=== PATIENT | female | born 1960 | race Hispanic/Latino ===

== ENCOUNTER 2017-07-17 10:36 | Inpatient (IN) | payer OTHER ==
[2017-07-17] MEDS ORDERED: VANCOMYCIN/NS 1 GM/250 ML 1 GM/250 ML BAG IV ONE (10:51)
[2017-07-17] MEDS ORDERED: LEVAQUIN 750MG/150ML 750 MG/150 ML BAG IV ONE (10:51)
[2017-07-17] MEDS ORDERED: ZOSYN/NS 2.25 GM/50ML 2.25 GM/50 ML BAG IV ONE (10:51)
[2017-07-17] MEDS ORDERED: NACL 0.9% 1000 ML 1,000 ML IV ONE (10:51)
[2017-07-17] MEDS ORDERED: ATROVENT IH ONE (10:54)
[2017-07-17] MEDS ORDERED: PROVENTIL IH ONE (10:54)
--- NOTE | 2017-07-17 11:41 | XRay Report ---
AP CHEST: HISTORY: Dyspnea AP view of the chest demonstrates a normal mediastinal and cardiac contour with clear lungs and normal bony and soft tissue structures. IMPRESSION: Unremarkable AP chest. No significant change since 05/31/16.
[2017-07-17 11:55] LABS: Basophils % (Auto) 0.2 % (0.0-1.8); Eosinophils % (Auto) 0.1 % (0.0-4.3); Hematocrit 40.5 % (30.3-42.9); Hemoglobin 13.6 gm/dl (10.1-14.3); Lymphocytes # (Auto) 0.9 K/mm3 (1.2-5.4); Mean Corpuscular HGB Conc 34 % (30-34); Mean Corpuscular Hemoglobin 34 pg (28-32); Mean Corpuscular Volume 100 fl (79-97); Monocytes # (Auto) 0.6 K/mm3 (0.0-0.8); Monocytes % (Auto) 6.9 % (0.0-7.3); Platelet Count 174 K/mm3 (140-440); Red Blood Count 4.04 M/mm3 (3.65-5.03); Red Cell Distribution Width 14.8 % (13.2-15.2)
[2017-07-17 12:11] LABS: Creatine Kinase MB 3.3 ng/mL (0.0-4.0)
[2017-07-17 13:56] LABS: Albumin 3.3 g/dL (3.9-5); Calcium 7.8 mg/dL (8.4-10.2)
[2017-07-17] MEDS ORDERED: NACL 0.9% 1000 ML 2,500 ML IV ONE (14:10)
--- NOTE | 2017-07-17 15:42 | Emergency Department Report ---
ED Shortness of Breath HPI - General Chief Complaint: Dyspnea/Respdistress Stated Complaint: DANYELLE Source: EMS Mode of arrival: Ambulatory Limitations: No Limitations - History of Present Illness Initial Comments: Mrs. Gibbons presents from [facility] with shortness of breath. Hx of COPD. daughter told physican at [facility] that patient was confused and breathing heavier than normal. Patient denies pain. - Related Data Home Medications Medication Instructions Recorded Confirmed Last Taken Baclofen [Lioresal] 5 - 10 mg PO TID PRN 07/17/17 07/17/17 07/16/17 Buspirone HCl [busPIRone] 15 mg PO TID 07/17/17 07/17/17 07/16/17 Duloxetine HCl [Cymbalta] 60 mg PO BID 07/17/17 07/17/17 07/16/17 Fluticasone/Salmeterol [Advair 1 each IH BID 07/17/17 07/17/17 07/16/17 250-50 Diskus] Tiotropium [place] [Spiriva 2 puff IH QDAY 07/17/17 07/17/17 07/16/17 Respimat] buPROPion SR [Wellbutrin Sr] 150 mg PO BID 07/17/17 07/17/17 07/16/17 clonazePAM [KlonoPIN] 1 mg PO BID 07/17/17 07/17/17 07/16/17 clonazePAM [KlonoPIN] 2 mg PO HS 07/17/17 07/17/17 07/16/17 traZODone [Desyrel] 200 mg PO HS PRN 07/17/17 07/17/17 07/16/17 Allergies Allergy/AdvReac Type Severity Reaction Status Date / Time Iodine and Iodide Containing Allergy Itching Verified 05/31/16 01:12 Produc ED Review of Systems ROS: Stated complaint: DANYELLE Other details as noted in HPI Comment: Unobtainable due to pts medical conditions ED Past Medical Hx - Past Medical History Previous Medical History?: Yes Hx Hypertension: No Hx CVA: No Hx Heart Attack/AMI: No Hx Congestive Heart Failure: No Hx Diabetes: Yes Hx Deep Vein Thrombosis: No Hx Pulmonary Embolism: No Hx GERD: Yes Hx Liver Disease: No Hx Renal Disease: No Hx of Cancer: Yes Hx Sickle Cell Disease: No Hx Arthritis: Yes Hx Headaches / Migraines: No Hx Seizures: No Hx Kidney Stones: No Hx Psychiatric Treatment: Yes (depression) Hx Asthma: Yes Hx COPD: Yes Hx Tuberculosis: No Hx Dementia: No Hx HIV: No Additional medical history: ibs, diverticulosis, - Surgical History Past Surgical History?: Yes Hx Coronary Stent: No Hx Open Heart Surgery: No Hx Pacemaker: No Hx Internal Defibrillator: No Hx Cholecystectomy: No Hx Appendectomy: No Hx Breast Surgery: Yes Additional Surgical History: spinal surgery breast cancer - Social History Smoking Status: Former Smoker Substance Use Type: None - Medications Home Medications: Home Medications Medication Instructions Recorded Confirmed Last Taken Type Baclofen [Lioresal] 5 - 10 mg PO TID PRN 07/17/17 07/17/17 07/16/17 History Buspirone HCl [busPIRone] 15 mg PO TID 07/17/17 07/17/17 07/16/17 History Duloxetine HCl [Cymbalta] 60 mg PO BID 07/17/17 07/17/17 07/16/17 History Fluticasone/Salmeterol [Advair 1 each IH BID 07/17/17 07/17/17 07/16/17 History 250-50 Diskus] Tiotropium [place] [Spiriva 2 puff IH QDAY 07/17/17 07/17/17 07/16/17 History Respimat] buPROPion SR [Wellbutrin Sr] 150 mg PO BID 07/17/17 07/17/17 07/16/17 History clonazePAM [KlonoPIN] 1 mg PO BID 07/17/17 07/17/17 07/16/17 History clonazePAM [KlonoPIN] 2 mg PO HS 07/17/17 07/17/17 07/16/17 History traZODone [Desyrel] 200 mg PO HS PRN 07/17/17 07/17/17 07/16/17 History ED Physical Exam - General Limitations: No Limitations General appearance: lethargic, in distress - Head Head exam: Present: atraumatic, normocephalic - Eye Eye exam: Present: PERRL - ENT ENT exam: Present: mucous membranes dry - Neck Neck exam: Present: full ROM. Absent: tenderness, meningismus - Respiratory Respiratory exam: Present: respiratory distress, rales, rhonchi (right sided rales/ronchi), accessory muscle use, decreased breath sounds (left side). Absent: chest wall tenderness - Cardiovascular Cardiovascular Exam: Present: tachycardia. Absent: systolic murmur, diastolic murmur, S3 - GI/Abdominal GI/Abdominal exam: Present: soft, distended, other (blotchy skin ). Absent: tenderness, guarding, rebound - Rectal Rectal exam: Present: deferred - Extremities Exam Extremities exam: Present: pedal edema - Neurological Exam Neurological exam: Present: altered (arousable gives limited hx patient will answer with repetitive questioning) ED Course Vital Signs 07/17/17 07/17/17 07/17/17 10:49 11:10 12:17 Temperature 100.0 F H Pulse Rate 116 H 104 H Pulse Rate [ 112 H 103 H Anterior Bilateral Throughout] Respiratory 30 H 25 H Rate Respiratory 28 H 22 Rate [Anterior Bilateral Throughout] Blood Pressure 97/64 84/52 Blood Pressure 97/64 [Right] O2 Sat by Pulse 97 94 Oximetry 07/17/17 07/17/17 07/17/17 13:21 13:30 13:41 Temperature Pulse Rate Pulse Rate [ Anterior Bilateral Throughout] Respiratory Rate Respiratory Rate [Anterior Bilateral Throughout] Blood Pressure 92/63 87/56 87/56 Blood Pressure [Right] O2 Sat by Pulse 91 90 91 Oximetry 07/17/17 07/17/17 07/17/17 13:51 14:00 14:11 Temperature Pulse Rate Pulse Rate [ Anterior Bilateral Throughout] Respiratory Rate Respiratory Rate [Anterior Bilateral Throughout] Blood Pressure 87/56 76/50 79/52 Blood Pressure [Right] O2 Sat by Pulse 90 91 90 Oximetry 07/17/17 07/17/17 07/17/17 14:12 14:21 14:30 Temperature Pulse Rate 74 Pulse Rate [ Anterior Bilateral Throughout] Respiratory 16 Rate Respiratory Rate [Anterior Bilateral Throughout] Blood Pressure 86/62 93/69 Blood Pressure 86/62 [Right] O2 Sat by Pulse 95 93 92 Oximetry 07/17/17 07/17/17 07/17/17 14:41 14:46 14:51 Temperature Pulse Rate 64 Pulse Rate [ Anterior Bilateral Throughout] Respiratory 16 Rate Respiratory Rate [Anterior Bilateral Throughout] Blood Pressure 93/69 93/69 Blood Pressure 93/62 [Right] O2 Sat by Pulse 93 96 92 Oximetry 07/17/17 07/17/17 07/17/17 15:00 15:11 15:21 Temperature Pulse Rate Pulse Rate [ Anterior Bilateral Throughout] Respiratory Rate Respiratory Rate [Anterior Bilateral Throughout] Blood Pressure 94/60 94/60 94/60 Blood Pressure [Right] O2 Sat by Pulse 92 93 93 Oximetry 07/17/17 07/17/17 07/17/17 15:30 15:41 15:51 Temperature Pulse Rate Pulse Rate [ Anterior Bilateral Throughout] Respiratory Rate Respiratory Rate [Anterior Bilateral Throughout] Blood Pressure 104/74 104/74 104/74 Blood Pressure [Right] O2 Sat by Pulse 93 94 94 Oximetry 07/17/17 07/17/17 07/17/17 16:00 16:11 16:21 Temperature Pulse Rate Pulse Rate [ Anterior Bilateral Throughout] Respiratory Rate Respiratory Rate [Anterior Bilateral Throughout] Blood Pressure 103/69 103/69 103/69 Blood Pressure [Right] O2 Sat by Pulse 90 97 97 Oximetry 07/17/17 07/17/17 07/17/17 16:48 16:51 17:00 Temperature Pulse Rate 90 Pulse Rate [ Anterior Bilateral Throughout] Respiratory 19 Rate Respiratory Rate [Anterior Bilateral Throughout] Blood Pressure 103/69 98/60 112/74 Blood Pressure [Right] O2 Sat by Pulse 92 91 97 Oximetry 07/17/17 07/17/17 07/17/17 17:11 17:21 17:30 Temperature Pulse Rate 85 84 82 Pulse Rate [ Anterior Bilateral Throughout] Respiratory 28 H 29 H 22 Rate Respiratory Rate [Anterior Bilateral Throughout] Blood Pressure 112/74 112/74 109/78 Blood Pressure [Right] O2 Sat by Pulse 96 95 96 Oximetry 07/17/17 07/17/17 07/17/17 17:41 17:50 18:00 Temperature Pulse Rate 83 88 83 Pulse Rate [ Anterior Bilateral Throughout] Respiratory 22 19 13 Rate Respiratory Rate [Anterior Bilateral Throughout] Blood Pressure 103/69 103/69 92/59 Blood Pressure [Right] O2 Sat by Pulse 95 95 94 Oximetry 07/17/17 07/17/17 07/17/17 18:11 18:21 18:30 Temperature Pulse Rate 85 95 H 91 H Pulse Rate [ Anterior Bilateral Throughout] Respiratory 27 H 35 H 27 H Rate Respiratory Rate [Anterior Bilateral Throughout] Blood Pressure 109/78 109/78 95/52 Blood Pressure [Right] O2 Sat by Pulse 95 81 L 94 Oximetry 07/17/17 07/17/17 07/17/17 18:39 18:41 18:51 Temperature Pulse Rate 90 Pulse Rate [ Anterior Bilateral Throughout] Respiratory 16 Rate Respiratory Rate [Anterior Bilateral Throughout] Blood Pressure 95/52 95/52 Blood Pressure 95/52 [Right] O2 Sat by Pulse 95 87 99 Oximetry 07/17/17 07/17/17 07/17/17 19:01 19:11 19:14 Temperature Pulse Rate 98 H Pulse Rate [ Anterior Bilateral Throughout] Respiratory 20 Rate Respiratory Rate [Anterior Bilateral Throughout] Blood Pressure 127/74 127/74 Blood Pressure [Right] O2 Sat by Pulse 99 97 97 Oximetry 07/17/17 07/17/17 07/17/17 19:21 19:30 19:40 Temperature Pulse Rate 104 H Pulse Rate [ Anterior Bilateral Throughout] Respiratory 16 Rate Respiratory Rate [Anterior Bilateral Throughout] Blood Pressure 127/74 98/74 102/67 Blood Pressure [Right] O2 Sat by Pulse 97 99 91 Oximetry 07/17/17 07/17/17 07/17/17 19:50 20:00 20:11 Temperature Pulse Rate 99 H 95 H Pulse Rate [ Anterior Bilateral Throughout] Respiratory 10 L 24 12 Rate Respiratory Rate [Anterior Bilateral Throughout] Blood Pressure 96/70 104/69 96/70 Blood Pressure [Right] O2 Sat by Pulse 94 94 96 Oximetry 07/17/17 07/17/17 07/17/17 20:21 20:30 20:41 Temperature Pulse Rate 139 H 98 H 105 H Pulse Rate [ Anterior Bilateral Throughout] Respiratory 25 H 33 H 30 H Rate Respiratory Rate [Anterior Bilateral Throughout] Blood Pressure 119/68 120/76 120/76 Blood Pressure [Right] O2 Sat by Pulse 95 93 77 L Oximetry 07/17/17 07/17/17 07/17/17 20:51 21:01 21:11 Temperature Pulse Rate 108 H 102 H 103 H Pulse Rate [ Anterior Bilateral Throughout] Respiratory 38 H 20 37 H Rate Respiratory Rate [Anterior Bilateral Throughout] Blood Pressure 119/79 128/75 128/75 Blood Pressure [Right] O2 Sat by Pulse 76 L 92 94 Oximetry 07/17/17 07/17/17 07/17/17 21:21 21:30 21:41 Temperature Pulse Rate 108 H 103 H 104 H Pulse Rate [ Anterior Bilateral Throughout] Respiratory 33 H 36 H 34 H Rate Respiratory Rate [Anterior Bilateral Throughout] Blood Pressure 125/80 118/77 125/80 Blood Pressure [Right] O2 Sat by Pulse 97 95 93 Oximetry 07/17/17 07/17/17 07/17/17 21:51 21:55 22:01 Temperature 99.3 F Pulse Rate 104 H 105 H 108 H Pulse Rate [ Anterior Bilateral Throughout] Respiratory 29 H 33 H 31 H Rate Respiratory Rate [Anterior Bilateral Throughout] Blood Pressure 110/75 110/75 123/73 Blood Pressure [Right] O2 Sat by Pulse 92 89 92 Oximetry 07/17/17 07/17/17 07/17/17 22:05 22:11 22:15 Temperature Pulse Rate 111 H 107 H 109 H Pulse Rate [ Anterior Bilateral Throughout] Respiratory 44 H 37 H 15 Rate Respiratory Rate [Anterior Bilateral Throughout] Blood Pressure 123/73 110/75 110/75 Blood Pressure [Right] O2 Sat by Pulse 88 87 92 Oximetry 07/17/17 07/17/17 22:21 22:25 Temperature Pulse Rate 104 H 104 H Pulse Rate [ Anterior Bilateral Throughout] Respiratory 32 H 37 H Rate Respiratory Rate [Anterior Bilateral Throughout] Blood Pressure 118/72 118/72 Blood Pressure [Right] O2 Sat by Pulse 91 92 Oximetry ED Medical Decision Making - Lab Data Result diagrams: 07/17/17 11:28 07/17/17 13:27 Laboratory Tests 07/17/17 07/17/17 07/17/17 11:28 11:28 11:28 WBC 8.9 RBC 4.04 Hgb 13.6 Hct 40.5 MCV 100 H MCH 34 H MCHC 34 RDW 14.8 Plt Count 174 Lymph % (Auto) 10.0 L [place] % (Auto) 6.9 Eos % (Auto) 0.1 Baso % (Auto) 0.2 Lymph # 0.9 L [place] # 0.6 Eos # 0.0 Baso # 0.0 Seg Neutrophils % 82.8 H Seg Neutrophils # 7.3 POC ABG pH POC ABG pCO2 POC ABG pO2 POC ABG HCO3 POC ABG Total CO2 POC ABG O2 Sat POC ABG Base Excess FiO2 Sodium Potassium Chloride Carbon Dioxide Anion Gap BUN Creatinine Estimated GFR BUN/Creatinine Ratio Glucose Lactic Acid 0.90 Calcium Total Bilirubin AST ALT Alkaline Phosphatase Total Creatine Kinase 39 CK-MB (CK-2) 3.3 CK-MB (CK-2) Rel Index 8.4 H Troponin T 0.066 H Total Protein Albumin Albumin/Globulin Ratio Triglycerides 146 Cholesterol 156 LDL Cholesterol Direct 99 HDL Cholesterol 39 L Cholesterol/HDL Ratio 4.00 07/17/17 07/17/17 12:33 13:27 WBC RBC Hgb Hct MCV MCH MCHC RDW Plt Count Lymph % (Auto) [place] % (Auto) Eos % (Auto) Baso % (Auto) Lymph # [place] # Eos # Baso # Seg Neutrophils % Seg Neutrophils # POC ABG pH 7.301 L POC ABG pCO2 62.5 H POC ABG pO2 67 L POC ABG HCO3 30.8 POC ABG Total CO2 33 POC ABG O2 Sat 90 POC ABG Base Excess 4 FiO2 40 Sodium 144 Potassium 4.1 Chloride 99.9 Carbon Dioxide 30 Anion Gap 18 BUN 17 Creatinine 1.3 H Estimated GFR 43 BUN/Creatinine Ratio 13 Glucose 176 H Lactic Acid Calcium 7.8 L Total Bilirubin 0.20 AST 12 ALT 10 Alkaline Phosphatase 64 Total Creatine Kinase CK-MB (CK-2) CK-MB (CK-2) Rel Index Troponin T Total Protein 5.6 L Albumin 3.3 L Albumin/Globulin Ratio 1.4 Triglycerides Cholesterol LDL Cholesterol Direct HDL Cholesterol Cholesterol/HDL Ratio - EKG Data EKG shows normal: sinus rhythm, axis, intervals, QRS complexes Rate: normal - Medical Decision Making 56 yo female patient with hx of COPD presents with fever, lethargy and dyspnea. On auscultation she has right sided ronchi. I suspect HCAP. I did consider PE. However, patient does not have persistent tachycardia. She denies chest pain. Admitted in fair condition to telemetry. Dr. Harrington hospitalist admitted patient 1. acute respiratory failure hypercapnia 2. HCAP Critical care time in (mins) excluding proc time.: 35 Critical care attestation.: If time is entered above; I have spent that time in minutes in the direct care of this critically ill patient, excluding procedure time. ED Disposition Clinical Impression: Acute respiratory failure with hypercapnia, HCAP (healthcare-associated pneumonia) Disposition: [id number] OP ADMIT IP TO THIS HOSP Is pt being admited?: Yes Does the pt Need Aspirin: No Condition: Fair
--- NOTE | 2017-07-17 17:40 | Cat Scan Report ---
FINAL REPORT EXAM: CT ANGIO CHEST HISTORY: dyspnea TECHNIQUE: CT examination of the chest with IV contrast CT angiographic 2D and thick slab 3D image post-processing PRIORS: None. FINDINGS: Normal cardiac size without pericardial effusion. Intact normal caliber thoracic aorta. Normal-appearing esophagus. No hilar mass or mediastinal adenopathy. The visualized pulmonary arteries are diffusely patent bilaterally. There is no filling defect to suggest PE. No pneumothorax, pleural effusion, or focal pulmonary consolidation. No lung mass or nodule. Slight linear scar versus atelectasis in left lung base. IMPRESSION: Slight linear scar versus atelectasis in left lung base No CT evidence of PE
--- NOTE | 2017-07-17 21:53 | Event Note ---
Date: 07/17/17 See Dictated H/p in reports Acute resp failure Copd exacerbation Muscle spasms Depression
[2017-07-17] MEDS ORDERED: DESYREL PO PRN (21:54)
[2017-07-17] MEDS ORDERED: LIORESAL PO PRN (21:54)
[2017-07-17] MEDS ORDERED: PROVENTIL IH PRN (21:57)
[2017-07-17] MEDS ORDERED: NON-FORMULARY (Fluticasone/Salmeterol [Advair 250-50 Diskus] 1 EACH) IH SCH (22:00)
[2017-07-17] MEDS ORDERED: NON-FORMULARY (Tiotropium Bromide [Spiriva Respimat] 2 PUFF) IH SCH (22:00)
[2017-07-17] MEDS ORDERED: NON-FORMULARY (Duloxetine Hcl [Cymbalta] 60 MG) PO SCH (22:00)
[2017-07-17] MEDS: CYMBALTA PO SCH (22:19)
[2017-07-17] MEDS: WELLBUTRIN SR PO SCH (23:48)
[2017-07-18] MEDS: DUONEB *Not for PRN Use IH SCH ×5 (01:57→21:52)
[2017-07-18] MEDS ORDERED: NON-FORMULARY (Buspirone Hcl [Buspirone] 15 MG) PO SCH (08:00)
--- NOTE | 2017-07-18 09:02 | History and Physical Report ---
CHIEF COMPLAINT: Increasing shortness of breath of 1 day duration. HISTORY OF PRESENT ILLNESS: The patient is a 56-year-old -[place] female who comes in because of increasing shortness of breath. The patient has history of COPD. She has a cough with mucoid sputum. No fever, no chills. No recent travel. The patient was a smoker in the past. PAST MEDICAL HISTORY: Significant for COPD, generalized anxiety disorder, depression, muscle spasms, history of cancer, irritable bowel syndrome and diverticulosis. PAST SURGICAL HISTORY: Spinal surgery and breast cancer surgery. SOCIAL HISTORY: Former smoker. FAMILY HISTORY: Hypertension. CURRENT MEDICATIONS: Baclofen 10 mg p.r.n., buspirone 15 mg p.o. t.i.d., Cymbalta 60 mg twice a day, Advair Diskus 250/50 one puff b.i.d., ____ Wellbutrin 150 mg twice a day, clonazepam 1 mg twice a day and 2 mg at bedtime, trazodone 200 mg orally at bedtime. REVIEW OF SYSTEMS: Significant for increasing shortness of breath and wheezing. No fever, no chills. Otherwise, review of systems is essentially negative. PHYSICAL EXAMINATION: GENERAL: Middle-aged female, cooperative during the examination. VITAL SIGNS: Respiratory rate 30, blood pressure is 197/64, temperature is 100.0, sats are anywhere ranging from 85-97%. HEENT: Unremarkable. Pupils equal and reactive. NECK: Supple. Accessory muscles of respiration are prominent. CHEST: Bilateral inspiratory rhonchi and expiratory rhonchi present. Diminished air entry. CARDIOVASCULAR: S1, S2 heard. No gallop, no murmur, no rub. Apical impulse in the left fifth intercostal space and midclavicular line. ABDOMEN: Soft and benign. No hepatosplenomegaly, no guarding, no rigidity. Hernial orifices are normal. EXTREMITIES: Good pedal pulses. No pedal edema. CENTRAL NERVOUS SYSTEM: Alert and oriented x 4, nonfocal exam. LABORATORY DATA: Significant for hemoglobin of 13.6, hematocrit of 40.5. The pCO2 is ____, creatinine is 1.3, calcium is 7.8. Troponin is 0.0666. CK-MB is 3.3, total CK is ____. HDL is 39. ASSESSMENT AND PLAN: 1. Acute respiratory failure. The patient initiated on BiPAP machine and eventually to continue O2 oxygen at 35% Ventimask and downgrade to 2 liters per minute. 2. COPD exacerbation. The patient started on DuoNebs, IV Solu-Medrol and IV Levaquin. 3. Anxiety disorder. Continue clonazepam. 4. Depression. Continue Cymbalta and trazodone. 5. Muscle spasms. Continue baclofen. 6. Deep venous thrombosis prophylaxis, Lovenox 40 mg subcutaneous daily. Lovenox 40 mg subcutaneous daily. JOB# [id number] SUZY/NTS
[2017-07-18] MEDS: BUSPAR PO SCH ×3 (09:04→22:40)
[2017-07-18] MEDS: PULMICORT IH SCH ×2 (09:48→21:21)
[2017-07-18] MEDS: BROVANA NEBU IH SCH ×2 (09:49→21:21)
[2017-07-18] MEDS ORDERED: ROCEPHIN/NS 2 GM/100 ML 2 GM/100 ML BAG IV SCH (10:00)
[2017-07-18] MEDS: ZITHROMAX 500 MG in NACL 0.9% 250ML 250 ML IV SCH (10:24)
[2017-07-18] MEDS: CYMBALTA PO SCH ×2 (10:24→22:41)
[2017-07-18] MEDS: cefTRIAXone 2 GM in NACL 0.9% 20 ML IV SCH (10:24)
[2017-07-18] MEDS: WELLBUTRIN SR PO SCH ×2 (10:25→22:42)
--- NOTE | 2017-07-18 11:40 | Progress Note ---
Assessment and Plan Assessment and plan: Acute hypoxemic hypercapnic respiratory failure. Patient presented with ABG of 7.3/62.5/67. Patient is to continue O2 and BiPAP as clinically indicated. Etiology secondary to COPD exacerbation. Acute COPD exacerbation. Continue breathing treatments, IV antibiotics, Pulmicort and systemic steroids. Metabolic encephalopathy. Etiology secondary to #1. Resolved. Acute bronchitis. Continue antibiotics. History Interval history: No new issues overnight. Patient still with some expiratory wheezes. Hospitalist Physical - Constitutional Vitals: Temp Pulse Resp BP Pulse Ox 98.3 F 93 H 20 121/82 94 07/18/17 07:51 07/18/17 07:51 07/18/17 07:51 07/18/17 07:51 07/18/17 07:51 General appearance: Present: no acute distress, well-nourished - EENT Eyes: Present: PERRL, EOM intact ENT: hearing intact, clear oral mucosa, dentition normal - Neck Neck: Present: supple, normal ROM - Respiratory Respiratory effort: normal Respiratory: bilateral: rhonchi, wheezing - Cardiovascular Rhythm: regular Heart Sounds: Present: S1 & S2. Absent: gallop, rub - Extremities Extremities: no ischemia, No edema, Full ROM - Abdominal General gastrointestinal: soft, non-tender, non-distended, normal bowel sounds - Integumentary Integumentary: Present: clear, warm, dry - Neurologic Neurologic: CNII-XII intact, moves all extremities Results - Labs CBC & Chem 7: 07/17/17 11:28 07/17/17 13:27 Labs: Laboratory Last Values WBC 8.9 K/mm3 (4.5-11.0) 07/17/17 11:28 RBC 4.04 M/mm3 (3.65-5.03) 07/17/17 11:28 Hgb 13.6 gm/dl (10.1-14.3) 07/17/17 11:28 Hct 40.5 % (30.3-42.9) 07/17/17 11:28 MCV 100 fl (79-97) H 07/17/17 11:28 MCH 34 pg (28-32) H 07/17/17 11:28 MCHC 34 % (30-34) 07/17/17 11:28 RDW 14.8 % (13.2-15.2) 07/17/17 11:28 Plt Count 174 K/mm3 (140-440) 07/17/17 11:28 Lymph % (Auto) 10.0 % (13.4-35.0) L 07/17/17 11:28 Lane % (Auto) 6.9 % (0.0-7.3) 07/17/17 11:28 Eos % (Auto) 0.1 % (0.0-4.3) 07/17/17 11:28 Baso % (Auto) 0.2 % (0.0-1.8) 07/17/17 11:28 Lymph # 0.9 K/mm3 (1.2-5.4) L 07/17/17 11:28 Lane # 0.6 K/mm3 (0.0-0.8) 07/17/17 11:28 Eos # 0.0 K/mm3 (0.0-0.4) 07/17/17 11:28 Baso # 0.0 K/mm3 (0.0-0.1) 07/17/17 11:28 Seg Neutrophils % 82.8 % (40.0-70.0) H 07/17/17 11:28 Seg Neutrophils # 7.3 K/mm3 (1.8-7.7) 07/17/17 11:28 POC ABG pH 7.301 (7.35-7.45) L 07/17/17 12:33 POC ABG pCO2 62.5 (35-45) H 07/17/17 12:33 POC ABG pO2 67 (80-105) L 07/17/17 12:33 POC ABG HCO3 30.8 07/17/17 12:33 POC ABG Total CO2 33 07/17/17 12:33 POC ABG O2 Sat 90 07/17/17 12:33 POC ABG Base Excess 4 07/17/17 12:33 FiO2 40 % 07/17/17 12:33 Sodium 144 mmol/L (137-145) 07/17/17 13:27 Potassium 4.1 mmol/L (3.6-5.0) 07/17/17 13:27 Chloride 99.9 mmol/L (98-107) 07/17/17 13:27 Carbon Dioxide 30 mmol/L (22-30) 07/17/17 13:27 Anion Gap 18 mmol/L 07/17/17 13:27 BUN 17 mg/dL (7-17) 07/17/17 13:27 Creatinine 1.3 mg/dL (0.7-1.2) H 07/17/17 13:27 Estimated GFR 43 ml/min 07/17/17 13:27 BUN/Creatinine Ratio 13 % 07/17/17 13:27 Glucose 176 mg/dL (65-100) H 07/17/17 13:27 Lactic Acid 0.90 mmol/L (0.7-2.0) 07/17/17 11:28 Calcium 7.8 mg/dL (8.4-10.2) L 07/17/17 13:27 Total Bilirubin 0.20 mg/dL (0.1-1.2) 07/17/17 13:27 AST 12 units/L (5-40) 07/17/17 13:27 ALT 10 units/L (7-56) 07/17/17 13:27 Alkaline Phosphatase 64 units/L (35-129) 07/17/17 13:27 Total Creatine Kinase 39 units/L (30-135) 07/17/17 11:28 CK-MB (CK-2) 3.3 ng/mL (0.0-4.0) 07/17/17 11:28 CK-MB (CK-2) Rel Index 8.4 (0-4) H 07/17/17 11:28 Troponin T 0.066 ng/mL (0.00-0.029) H 07/17/17 11:28 Total Protein 5.6 g/dL (6.3-8.2) L 07/17/17 13:27 Albumin 3.3 g/dL (3.9-5) L 07/17/17 13:27 Albumin/Globulin Ratio 1.4 % 07/17/17 13:27 Triglycerides 146 mg/dL (2-149) 07/17/17 11:28 Cholesterol 156 mg/dL (50-199) 07/17/17 11:28 LDL Cholesterol Direct 99 mg/dL (50-130) 07/17/17 11:28 HDL Cholesterol 39 mg/dL (40-59) L 07/17/17 11:28 Cholesterol/HDL Ratio 4.00 % 07/17/17 11:28
[2017-07-18] MEDS ORDERED: TYLENOL PO PRN (11:42)
[2017-07-18] MEDS: MOTRIN PO PRN (17:35)
[2017-07-19] MEDS: DUONEB *Not for PRN Use IH SCH ×4 (02:29→22:16)
[2017-07-19 05:51] LABS: Hematocrit 39.3 % (30.3-42.9); Hemoglobin 13.3 gm/dl (10.1-14.3); Mean Corpuscular HGB Conc 34 % (30-34); Mean Corpuscular Hemoglobin 34 pg (28-32); Mean Corpuscular Volume 100 fl (79-97); Platelet Count 181 K/mm3 (140-440); Red Blood Count 3.93 M/mm3 (3.65-5.03); Red Cell Distribution Width 14.4 % (13.2-15.2)
[2017-07-19 06:09] LABS: BUN/Creatinine Ratio 19; Blood Urea Nitrogen 13 mg/dL (7-17); Calcium 8.1 mg/dL (8.4-10.2); Hemolysis Index 9
[2017-07-19] MEDS: TESSALON PERLES PO SCH ×3 (06:34→22:41)
[2017-07-19 08:18] LABS: Band Neutrophils # (Manual) 1.3 K/mm3; Eosinophils % (Manual) 0 % (0.0-4.3); Total Cells Counted 100
[2017-07-19 08:19] LABS: Basophils % (Manual) 0 % (0.0-1.8); RBC Morphology Normal
[2017-07-19] MEDS: BUSPAR PO SCH ×3 (08:51→23:00)
[2017-07-19] MEDS: BROVANA NEBU IH SCH ×2 (10:00→22:15)
[2017-07-19] MEDS: PULMICORT IH SCH ×2 (10:00→22:16)
[2017-07-19] MEDS: cefTRIAXone 2 GM in NACL 0.9% 20 ML IV SCH (10:16)
[2017-07-19] MEDS: WELLBUTRIN SR PO SCH ×2 (10:16→22:41)
[2017-07-19] MEDS: CYMBALTA PO SCH ×2 (10:16→22:41)
[2017-07-19] MEDS: ZITHROMAX 500 MG in NACL 0.9% 250ML 250 ML IV SCH (10:17)
--- NOTE | 2017-07-19 11:09 | Progress Note ---
Assessment and Plan Assessment and plan: Acute hypoxemic hypercapnic respiratory failure. Patient presented with ABG of 7.3/62.5/67. Patient is to continue O2 and BiPAP as clinically indicated. Etiology secondary to COPD exacerbation. Acute COPD exacerbation. Continue breathing treatments, IV antibiotics, Pulmicort and systemic steroids. Metabolic encephalopathy. Etiology secondary to #1. Resolved. Acute bronchitis. Continue antibiotics. Leukocytosis. Etiology likely secondary to bronchitis versus steroids. Disposition. Anticipate discharge in a.m. History Interval history: No new issues overnight. Patient still with some expiratory wheezes. Hospitalist Physical - Constitutional Vitals: Temp Pulse Resp BP Pulse Ox 98.2 F 83 16 158/102 96 07/19/17 04:23 07/19/17 10:07 07/19/17 10:07 07/19/17 04:23 07/19/17 10:00 General appearance: Present: no acute distress, well-nourished - EENT Eyes: Present: PERRL, EOM intact ENT: hearing intact, clear oral mucosa, dentition normal - Neck Neck: Present: supple, normal ROM - Respiratory Respiratory effort: normal Respiratory: bilateral: CTA - Cardiovascular Rhythm: regular Heart Sounds: Present: S1 & S2. Absent: gallop, rub - Extremities Extremities: no ischemia, No edema, Full ROM - Abdominal General gastrointestinal: soft, non-tender, non-distended, normal bowel sounds - Integumentary Integumentary: Present: clear, warm, dry - Neurologic Neurologic: CNII-XII intact, moves all extremities Results - Labs CBC & Chem 7: 07/19/17 05:02 07/19/17 05:02 Labs: Laboratory Last Values WBC 13.0 K/mm3 (4.5-11.0) H 07/19/17 05:02 RBC 3.93 M/mm3 (3.65-5.03) 07/19/17 05:02 Hgb 13.3 gm/dl (10.1-14.3) 07/19/17 05:02 Hct 39.3 % (30.3-42.9) 07/19/17 05:02 MCV 100 fl (79-97) H 07/19/17 05:02 MCH 34 pg (28-32) H 07/19/17 05:02 MCHC 34 % (30-34) 07/19/17 05:02 RDW 14.4 % (13.2-15.2) 07/19/17 05:02 Plt Count 181 K/mm3 (140-440) 07/19/17 05:02 Lymph % (Auto) 10.0 % (13.4-35.0) L 07/17/17 11:28 Blair % (Auto) 6.9 % (0.0-7.3) 07/17/17 11:28 Eos % (Auto) 0.1 % (0.0-4.3) 07/17/17 11:28 Baso % (Auto) 0.2 % (0.0-1.8) 07/17/17 11: Lymph # 0.9 K/mm3 (1.2-5.4) L 07/17/17 11:28 Blair # 0.6 K/mm3 (0.0-0.8) 07/17/17 11:28 Eos # 0.0 K/mm3 (0.0-0.4) 07/17/17 11: Baso # 0.0 K/mm3 (0.0-0.1) 07/17/17 11:28 Add Manual Diff Complete 07/19/17 05:02 Total Counted 100 07/19/17 05:02 Seg Neutrophils % Supervisor Loading 07/19/17 05:02 Seg Neuts % (Manual) 76.0 % (40.0-70.0) H 07/19/17 05:02 Band Neutrophils % 10.0 % 07/19/17 05:02 Lymphocytes % (Manual) 6.0 % (13.4-35.0) L 07/19/17 05:02 Reactive Lymphs % (Man) 0 % 07/19/17 05:02 Monocytes % (Manual) 8.0 % (0.0-7.3) H 07/19/17 05:02 Eosinophils % (Manual) 0 % (0.0-4.3) 07/19/17 05:02 Basophils % (Manual) 0 % (0.0-1.8) 07/19/17 05:02 Metamyelocytes % 0 % 07/19/17 05:02 Myelocytes % 0 % 07/19/17 05:02 Promyelocytes % 0 % 07/19/17 05:02 Blast Cells % 0 % 07/19/17 05:02 Nucleated RBC % Not Reportable 07/19/17 05:02 Seg Neutrophils # 7.3 K/mm3 (1.8-7.7) 07/17/17 11:28 Seg Neutrophils # Man 9.9 K/mm3 (1.8-7.7) H 07/19/17 05:02 Band Neutrophils # 1.3 K/mm3 07/19/17 05:02 Lymphocytes # (Manual) 0.8 K/mm3 (1.2-5.4) L 07/19/17 05:02 Abs React Lymphs (Man) 0.0 K/mm3 07/19/17 05:02 Monocytes # (Manual) 1.0 K/mm3 (0.0-0.8) H 07/19/17 05:02 Eosinophils # (Manual) 0.0 K/mm3 (0.0-0.4) 07/19/17 05:02 Basophils # (Manual) 0.0 K/mm3 (0.0-0.1) 07/19/17 05:02 Metamyelocytes # 0.0 K/mm3 07/19/17 05:02 Myelocytes # 0.0 K/mm3 07/19/17 05:02 Promyelocytes # 0.0 K/mm3 07/19/17 05:02 Blast Cells # 0.0 K/mm3 07/19/17 05:02 WBC Morphology Not Reportable 07/19/17 05:02 Hypersegmented Neuts Not Reportable 07/19/17 05:02 Hyposegmented Neuts Not Reportable 07/19/17 05:02 Hypogranular Neuts Not Reportable 07/19/17 05:02 Smudge Cells Not Reportable 07/19/17 05:02 Toxic Granulation Not Reportable 07/19/17 05:02 Toxic Vacuolation Not Reportable 07/19/17 05:02 Dohle Bodies Not Reportable 07/19/17 05:02 Pelger-Huet Anomaly Not Reportable 07/19/17 05:02 Margarita Rods Not Reportable 07/19/17 05:02 Platelet Estimate Not Reportable 07/19/17 05:02 Clumped Platelets Not Reportable 07/19/17 05:02 Plt Clumps, EDTA Not Reportable 07/19/17 05:02 Large Platelets Not Reportable 07/19/17 05:02 Giant Platelets Not Reportable 07/19/17 05:02 Platelet Satelliting Not Reportable 07/19/17 05:02 Plt Morphology Comment Not Reportable 07/19/17 05:02 RBC Morphology Normal 07/19/17 05:02 Dimorphic RBCs Not Reportable 07/19/17 05:02 Polychromasia Not Reportable 07/19/17 05:02 Hypochromasia Not Reportable 07/19/17 05:02 Poikilocytosis Not Reportable 07/19/17 05:02 Anisocytosis Not Reportable 07/19/17 05:02 Microcytosis Not Reportable 07/19/17 05:02 Macrocytosis Not Reportable 07/19/17 05:02 Spherocytes Not Reportable 07/19/17 05:02 Pappenheimer Bodies Not Reportable 07/19/17 05:02 Sickle Cells Not Reportable 07/19/17 05:02 Target Cells Not Reportable 07/19/17 05:02 Tear Drop Cells Not Reportable 07/19/17 05:02 Ovalocytes Not Reportable 07/19/17 05:02 Helmet Cells Not Reportable 07/19/17 05:02 [place] Bodies Not Reportable 07/19/17 05:02 [place]hams Rings Not Reportable 07/19/17 05:02 Gridley Cells Not Reportable 07/19/17 05:02 Bite Cells Not Reportable 07/19/17 05:02 Crenated Cell Not Reportable 07/19/17 05:02 Elliptocytes Not Reportable 07/19/17 05:02 Acanthocytes (Spur) Not Reportable 07/19/17 05:02 Rouleaux Not Reportable 07/19/17 05:02 Hemoglobin C Crystals Not Reportable 07/19/17 05:02 Schistocytes Not Reportable 07/19/17 05:02 Malaria parasites Not Reportable 07/19/17 05:02 Magan Bodies Not Reportable 07/19/17 05:02 Hem Pathologist Commnt No 07/19/17 05:02 POC ABG pH 7.301 (7.35-7.45) L 07/17/17 12:33 POC ABG pCO2 62.5 (35-45) H 07/17/17 12:33 POC ABG pO2 67 (80-105) L 07/17/17 12:33 POC ABG HCO3 30.8 07/17/17 12:33 POC ABG Total CO2 33 07/17/17 12:33 POC ABG O2 Sat 90 07/17/17 12:33 POC ABG Base Excess 4 07/17/17 12:33 FiO2 40 % 07/17/17 12:33 Sodium 140 mmol/L (137-145) 07/19/17 05:02 Potassium 4.0 mmol/L (3.6-5.0) 07/19/17 05:02 Chloride 94.8 mmol/L (98-107) L 07/19/17 05:02 Carbon Dioxide 33 mmol/L (22-30) H 07/19/17 05:02 Anion Gap 16 mmol/L 07/19/17 05:02 BUN 13 mg/dL (7-17) 07/19/17 05:02 Creatinine 0.7 mg/dL (0.7-1.2) 07/19/17 05:02 Estimated GFR > 60 ml/min 07/19/17 05:02 BUN/Creatinine Ratio 19 % 07/19/17 05:02 Glucose 176 mg/dL (65-100) H 07/19/17 05:02 Lactic Acid 0.90 mmol/L (0.7-2.0) 07/17/17 11:28 Calcium 8.1 mg/dL (8.4-10.2) L 07/19/17 05:02 Total Bilirubin 0.20 mg/dL (0.1-1.2) 07/17/17 13:27 AST 12 units/L (5-40) 07/17/17 13:27 ALT 10 units/L (7-56) 07/17/17 13:27 Alkaline Phosphatase 64 units/L (35-129) 07/17/17 13:27 Total Creatine Kinase 39 units/L (30-135) 07/17/17 11:28 CK-MB (CK-2) 3.3 ng/mL (0.0-4.0) 07/17/17 11:28 CK-MB (CK-2) Rel Index 8.4 (0-4) H 07/17/17 11:28 Troponin T 0.066 ng/mL (0.00-0.029) H 07/17/17 11:28 Total Protein 5.6 g/dL (6.3-8.2) L 07/17/17 13:27 Albumin 3.3 g/dL (3.9-5) L 07/17/17 13:27 Albumin/Globulin Ratio 1.4 % 07/17/17 13:27 Triglycerides 146 mg/dL (2-149) 07/17/17 11:28 Cholesterol 156 mg/dL (50-199) 07/17/17 11:28 LDL Cholesterol Direct 99 mg/dL (50-130) 07/17/17 11:28 HDL Cholesterol 39 mg/dL (40-59) L 07/17/17 11:28 Cholesterol/HDL Ratio 4.00 % 07/17/17 11:28
[2017-07-19] MEDS: NOVOLOG SUB-Q SCH ×3 (11:30→22:48)
[2017-07-19] MEDS: MOTRIN PO PRN ×2 (14:05→22:59)
[2017-07-19] MEDS: GLUCOPHAGE PO SCH (17:17)
[2017-07-19] MEDS: COZAAR PO SCH (19:00)
[2017-07-20] MEDS: DUONEB *Not for PRN Use IH SCH ×4 (01:57→21:31)
[2017-07-20] MEDS: TESSALON PERLES PO SCH ×3 (05:30→21:59)
--- NOTE | 2017-07-20 08:01 | Discharge Summary ---
Providers - Providers Date of Admission: 07/17/17 14:59 Date of discharge: 07/20/17 Attending physician: DONELL PULIDO Primary care physician: ANNE QUIJANO Hospitalization Reason for admission: copd exac Condition: Good Hospital course: This is a 56-year-old female who presented to the emergency department with chief complaint of shortness of breath. On admission, patient was found have an ABG of 7.3/62.5/67. Patient was admitted with a diagnosis of acute hypoxemic hypercapnic respiratory failure. The patient was treated with O2 on BiPAP. Patient also received empiric IV antibiotics, Pulmicort and systemic steroids. Patient has some initial confusion on admission which was attributed to metabolic encephalopathy from hypercapnia. Patient's symptoms resolved and respiratory status improved. Patient felt that she was at her baseline and therefore was discharged home. Dedicated discharge time 32 minutes. Disposition: - TO HOME OR SELFCARE Time spent for discharge: 32 - Discharge Diagnoses (1) Acute respiratory failure with hypercapnia Status: Acute (2) Respiratory failure Status: Acute Qualifiers: Chronicity: unspecified Respiratory failure complication: hypoxia and hypercapnia Qualified Code(s): J96.91 - Respiratory failure, unspecified with hypoxia; J96.92 - Respiratory failure, unspecified with hypercapnia Core Measure Documentation - Palliative Care Palliative Care/ Comfort Measures: Not Applicable - Core Measures Any of the following diagnoses?: none Exam - Constitutional Vitals: Temp Pulse Resp BP Pulse Ox 97.5 F L 93 H 18 104/68 92 07/20/17 04:28 07/20/17 04:30 07/20/17 04:28 07/20/17 04:28 07/20/17 04:30 General appearance: Present: no acute distress, well-nourished - EENT Eyes: Present: PERRL ENT: hearing intact, clear oral mucosa - Neck Neck: Present: supple, normal ROM - Respiratory Respiratory effort: normal Respiratory: bilateral: CTA - Cardiovascular Heart Sounds: Present: S1 & S2. Absent: rub, click - Extremities Extremities: pulses symmetrical, No edema Peripheral Pulses: within normal limits - Abdominal General gastrointestinal: Present: soft, non-tender, non-distended, normal bowel sounds Female genitourinary: Present: normal - Integumentary Integumentary: Present: clear, warm, dry - Musculoskeletal Musculoskeletal: gait normal, strength equal bilaterally - Psychiatric Psychiatric: appropriate mood/affect, intact judgment & insight - Neurologic Neurologic: CNII-XII intact, moves all extremities Plan Activity: no restrictions Weight Bearing Status: Full Weight Bearing Diet: regular Follow up with: ANNE QUIJANO MD [Primary Care Provider] - 7 Days Prescriptions: Arformoterol Nebu [Brovana Nebu] 15 mcg IH Q12HRT #30 ml Azithromycin [Zithromax TAB] 500 mg PO QDAY #5 tablet Baclofen [Lioresal] 5 - 10 mg PO TID PRN #30 tablet PRN Reason: Spasms Benzonatate [Tessalon Perles] 100 mg PO Q8HR #30 capsule Budesonide [Pulmicort Respules] 0.5 mg IH Q12HRT #30 nebu buPROPion SR [Wellbutrin SR] 150 mg PO BID #30 tablet Buspirone HCl [busPIRone] 15 mg PO TID #30 tablet clonazePAM [KlonoPIN] 1 mg PO BID #30 tablet Duloxetine HCl [Cymbalta] 60 mg PO BID #30 capsule. Fluticasone/Salmeterol [Advair 250-50 Diskus] 1 each IH BID #30 blst.w.dev Tiotropium [place] [Spiriva Respimat] 2 puff IH QDAY #30 mist.inhal traZODone [Desyrel] 200 mg PO HS PRN #30 tablet PRN Reason: Insomnia
[2017-07-20] MEDS: WELLBUTRIN SR PO SCH ×2 (09:16→22:13)
[2017-07-20] MEDS: ZITHROMAX PO SCH (09:21)
[2017-07-20] MEDS: CYMBALTA PO SCH ×2 (09:21→21:59)
[2017-07-20] MEDS: GLUCOPHAGE PO SCH ×2 (09:21→17:18)
[2017-07-20] MEDS: COZAAR PO SCH (09:21)
[2017-07-20] MEDS: cefTRIAXone 2 GM in NACL 0.9% 20 ML IV SCH (09:22)
[2017-07-20] MEDS: NOVOLOG SUB-Q SCH ×3 (09:22→17:23)
[2017-07-20] MEDS: BUSPAR PO SCH ×3 (09:41→22:00)
[2017-07-20] MEDS: PULMICORT IH SCH ×2 (09:57→21:31)
[2017-07-20] MEDS: BROVANA NEBU IH SCH ×2 (09:57→21:35)
--- NOTE | 2017-07-20 10:31 | Consultation ---
History of Present Illness Consult date: 07/20/17 Requesting physician: DONELL PULIDO Consult reason: atrial fibrillation History of present illness: The pt is a 56 YO female with a past medical history significant for HTN, HLP, DM, COPD, chronic respiratory failure requiring home O2, sleep apnea on PM CPAP , breast CA s/p bilateral mastectomy in 2008. She is previously unknown to our practice. She is a [facility] pt. She presented with c/o progressively worsening SOB and altered mental status. She reports that she does not recall any events several hours prior to her hospitalization, but was told by her daughter that she became "incoherent". Pt was admitted and treated for COPD exacerbation, acute on chronic respiratory failure and bronchitis. Pt was actually scheduled for discharge home today but developed AFlutter with RVR this AM and thus cardiology has been consulted. On evaluation, pt is noted to be in AFlutter with HR 170s, BPs 90s/50s. She denies any current chest pain, palpitations, SOB , n/v, diaphoresis, dizziness or syncope. She denies any prior cardiac issues or arrhythmias. She denies any prior cardiac evaluation. Past History Past Medical History: cancer (breast), COPD, diabetes, hypertension, hyperlipidemia Past Surgical History: mastectomy Social history: smoking (former). denies: alcohol abuse, prescription drug abuse Medications and Allergies Allergies Allergy/AdvReac Type Severity Reaction Status Date / Time Iodine and Iodide Containing Allergy Itching Verified 05/31/16 01:12 Produc Home Medications Medication Instructions Recorded Confirmed Last Taken Type clonazePAM [KlonoPIN] 2 mg PO HS 07/17/17 07/17/17 07/16/17 History Arformoterol Nebu [Brovana Nebu] 15 mcg IH Q12HRT #30 ml 07/20/17 Unknown Rx Azithromycin [Zithromax TAB] 500 mg PO QDAY #5 tablet 07/20/17 Unknown Rx Baclofen [Lioresal] 5 - 10 mg PO TID PRN #30 tablet 07/20/17 Unknown Rx Benzonatate [Tessalon Perles] 100 mg PO Q8HR #30 capsule 07/20/17 Unknown Rx Budesonide [Pulmicort Respules] 0.5 mg IH Q12HRT #30 nebu 07/20/17 Unknown Rx Buspirone HCl [busPIRone] 15 mg PO TID #30 tablet 07/20/17 Unknown Rx Duloxetine HCl [Cymbalta] 60 mg PO BID #30 capsule. 07/20/17 Unknown Rx Fluticasone/Salmeterol [Advair 1 each IH BID #30 blst.w.dev 07/20/17 Unknown Rx 250-50 Diskus] Tiotropium [place] [Spiriva 2 puff IH QDAY #30 mist.inhal 07/20/17 Unknown Rx Respimat] buPROPion SR [Wellbutrin SR] 150 mg PO BID #30 tablet 07/20/17 Unknown Rx clonazePAM [KlonoPIN] 1 mg PO BID #30 tablet 07/20/17 Unknown Rx traZODone [Desyrel] 200 mg PO HS PRN #30 tablet 07/20/17 Unknown Rx Active Meds: Active Medications Acetaminophen (Tylenol) 650 mg PO Q6H PRN PRN Reason: Pain, Mild (1-3) Albuterol (Proventil) 2.5 mg IH Q3H PRN PRN Reason: Shortness Of Breath Last Admin: 07/18/17 06:24 Dose: 2.5 mg Albuterol/Ipratropium (Duoneb *Not For Prn Use*) 1 ampul IH Q6HRT [facility] Last Admin: 07/20/17 09:57 Dose: 1 ampul Arformoterol Tartrate (Brovana Nebu) 15 mcg IH Q12HRT [facility] Last Admin: 07/20/17 09:57 Dose: 15 mcg Azithromycin (Zithromax) 500 mg PO QDAY [facility] Last Admin: 07/20/17 09:21 Dose: 500 mg Baclofen (Lioresal) 10 mg PO BID PRN PRN Reason: Spasms Benzonatate (Tessalon Perles) 100 mg PO Q8HR [facility] Last Admin: 07/20/17 05:30 Dose: 100 mg Budesonide (Pulmicort) 0.5 mg IH Q12HRT [facility] Last Admin: 07/20/17 09:57 Dose: 0.5 mg Bupropion HCl (Wellbutrin Sr) 150 mg PO BID [facility] Last Admin: 07/20/17 09:16 Dose: 150 mg Buspirone HCl (Buspar) 15 mg PO TID [facility] Last Admin: 07/20/17 09:41 Dose: 15 mg Clonazepam (Klonopin) 1 mg PO BID [facility] Last Admin: 07/20/17 09:16 Dose: 1 mg Duloxetine HCl (Cymbalta) 60 mg PO BID [facility] Last Admin: 07/20/17 09:21 Dose: 60 mg Ceftriaxone Sodium 2 gm/ (Sodium Chloride) 20 mls @ 20 mls/10 min IV Q24HR [facility] Last Admin: 07/20/17 09:22 Dose: 20 mls/10 min Amiodarone HCl 150 mg/ (Dextrose) 100 mls @ 600 mls/hr IV ONCE ONE PRN Reason: Protocol Stop: 07/20/17 10:26 Amiodarone HCl 900 mg/ (Dextrose) 500 mls @ 33.33 mls/hr IV DIRECT LAYO; 1 MG /MIN PRN Reason: Protocol Ibuprofen (Motrin) 800 mg PO Q8H PRN PRN Reason: Pain, Mild (1-3) Last Admin: 07/19/17 22:59 Dose: 800 mg Insulin Aspart (Novolog) 0 units SUB-Q ACHS [facility] PRN Reason: Protocol Last Admin: 07/20/17 09:22 Dose: Not Given Losartan Potassium (Cozaar) 25 mg PO QDAY [facility] Last Admin: 07/20/17 09:21 Dose: 25 mg Metformin HCl (Glucophage) 500 mg PO BIDDIAB [facility] Last Admin: 07/20/17 09:21 Dose: 500 mg Methylprednisolone Sodium Succinate (Solu-Medrol) 40 mg IV Q8HR [facility] Last Admin: 07/20/17 05:30 Dose: 40 mg Trazodone HCl (Desyrel) 200 mg PO HS PRN PRN Reason: Insomnia Review of Systems Constitutional: no weight loss, no weight gain, no fever, no chills, no sweats Ears, nose, mouth and throat: no ear pain, no nose pain, no sinus pressure, no sinus pain Cardiovascular: shortness of breath, no chest pain, no orthopnea, no palpitations, no rapid/irregular heart beat, no edema, no syncope, no lightheadedness, no dyspnea on exertion Respiratory: cough, shortness of breath, no dyspnea on exertion, no congestion, no wheezing, no pain on inspiration Gastrointestinal: no abdominal pain, no nausea, no vomiting, no diarrhea, no constipation, no change in bowel habits Genitourinary Female: no pelvic pain, no flank pain, no dysuria, no urinary frequency, no urgency Musculoskeletal: no neck stiffness, no neck pain Integumentary: no rash, no pruritis, no redness, no sores, no wounds Neurological: change in mentation (prior to admission as noted in HPI), no head injury, no paralysis, no weakness, no parathesias, no numbness, no tingling, no seizures, no syncope Psychiatric: no anxiety Endocrine: no cold intolerance, no heat intolerance Hematologic/Lymphatic: no easy bruising, no easy bleeding, no lymphadenopathy Allergic/Immunologic: no urticaria, no wheezing, no persistent infections Physical Examination Vital Signs Temp Pulse Resp BP Pulse Ox 100 F H 116 H 18 97/64 97 07/17/17 10:49 07/17/17 10:49 07/17/17 10:49 07/17/17 10:49 07/17/17 10:49 General appearance: no acute distress HEENT: Positive: PERRL, Normocephaly, Mucus Membranes Moist Neck: Positive: neck supple, trachea midline Cardiac: Positive: irregularly irregular, S1/S2, Tachycardia Lungs: Positive: Decreased Breath Sounds Neuro: Positive: Grossly Intact Abdomen: Positive: Soft. Negative: Tender Skin: Positive: Clear. Negative: Rash, Wound Musculoskeletal: No Fluid Collection, No Pain, Normal Range of Motion Extremities: Absent: edema Results 07/20/17 12:38 07/20/17 12:38 - Imaging and Cardiology Echo: pending EKG: report reviewed, image reviewed EKG interpretations - Telemetry EKG Rhythm: Atrial Fibrillation - EKG Supraventricular dysrhythmia: atrial fibrillation Assessment and Plan Assessment: Atrial flutter with RVR - new onset COPD exacerbation Acute bronchitis Acute on chronic respiratory failure HTN HLP DM H/o breast CA Plan: Obtain echo. Obtain BMP, CBC, Mg, Oswaldo, thyroid profile. Chest CTA on 07/17 negative for PE. IV cardizem given with no effect. DCCV with 50J performed and pt converted to SR for several seconds until converting back to AFlutter with RVR. Initiate PO cardizem, amio gtt and esmolol gtt and tx to CCU. Consider reattempting DCCV if necessary after pt is loaded with amiodarone. Assessment and plan reviewed with pt at bedside. The patient has been seen in conjunction with Dr. Foy who agrees with the assessment and plan of care.
--- NOTE | 2017-07-20 10:33 | Progress Note ---
Assessment and Plan Assessment and plan: New onset afib with RVR. Transfer to ICU and start on amiodarone drip. Cardiology consult. Check TSH, d-dimer and ECHO. Check lytes Acute hypoxemic hypercapnic respiratory failure. Patient presented with ABG of 7.3/62.5/67. Patient is to continue O2 and BiPAP as clinically indicated. Etiology secondary to COPD exacerbation. Acute COPD exacerbation. Continue breathing treatments, IV antibiotics, Pulmicort and systemic steroids. Metabolic encephalopathy. Etiology secondary to #1. Resolved. Acute bronchitis. Continue antibiotics. Leukocytosis. Etiology likely secondary to bronchitis versus steroids. Disposition. Anticipate discharge in a.m. - Patient Problems (1) Acute respiratory failure with hypercapnia Current Visit: Yes Status: Acute (2) Respiratory failure Current Visit: No Status: Acute Qualifiers: Chronicity: unspecified Respiratory failure complication: hypoxia and hypercapnia Qualified Code(s): J96.91 - Respiratory failure, unspecified with hypoxia; J96.92 - Respiratory failure, unspecified with hypercapnia; J96.92 - Respiratory failure, unspecified with hypercapnia; J96.92 - Respiratory failure , unspecified with hypercapnia History Interval history: Pr. with afib with RVR this am but no palpitations Hospitalist Physical - Constitutional Vitals: Temp Pulse Resp BP Pulse Ox 99.0 F 102 H 17 98/66 96 07/20/17 07:25 07/20/17 09:58 07/20/17 09:58 07/20/17 07:25 07/20/17 09:57 General appearance: Present: no acute distress, well-nourished - EENT Eyes: Present: PERRL, EOM intact ENT: hearing intact, clear oral mucosa, dentition normal - Neck Neck: Present: supple, normal ROM - Respiratory Respiratory effort: normal Respiratory: bilateral: CTA - Cardiovascular Rhythm: irregularly irregular Heart Sounds: Present: S1 & S2. Absent: gallop, rub - Extremities Extremities: no ischemia, No edema, Full ROM - Abdominal General gastrointestinal: soft, non-tender, non-distended, normal bowel sounds - Integumentary Integumentary: Present: clear, warm, dry - Neurologic Neurologic: CNII-XII intact, moves all extremities Results - Labs CBC & Chem 7: 07/19/17 05:02 07/19/17 05:02 Labs: Laboratory Last Values WBC 13.0 K/mm3 (4.5-11.0) H 07/19/17 05:02 RBC 3.93 M/mm3 (3.65-5.03) 07/19/17 05:02 Hgb 13.3 gm/dl (10.1-14.3) 07/19/17 05:02 Hct 39.3 % (30.3-42.9) 07/19/17 05:02 MCV 100 fl (79-97) H 07/19/17 05:02 MCH 34 pg (28-32) H 07/19/17 05:02 MCHC 34 % (30-34) 07/19/17 05:02 RDW 14.4 % (13.2-15.2) 07/19/17 05:02 Plt Count 181 K/mm3 (140-440) 07/19/17 05:02 Lymph % (Auto) 10.0 % (13.4-35.0) L 07/17/17 11:28 [place] % (Auto) 6.9 % (0.0-7.3) 07/17/17 11:28 Eos % (Auto) 0.1 % (0.0-4.3) 07/17/17 11:28 Baso % (Auto) 0.2 % (0.0-1.8) 07/17/17 11:28 Lymph # 0.9 K/mm3 (1.2-5.4) L 07/17/17 11:28 [place] # 0.6 K/mm3 (0.0-0.8) 07/17/17 11:28 Eos # 0.0 K/mm3 (0.0-0.4) 07/17/17 11:28 Baso # 0.0 K/mm3 (0.0-0.1) 07/17/17 11:28 Add Manual Diff Complete 07/19/17 05:02 Total Counted 100 07/19/17 05:02 Seg Neutrophils % Liquor Runner 07/19/17 05:02 Seg Neuts % (Manual) 76.0 % (40.0-70.0) H 07/19/17 05:02 Band Neutrophils % 10.0 % 07/19/17 05:02 Lymphocytes % (Manual) 6.0 % (13.4-35.0) L 07/19/17 05:02 Reactive Lymphs % (Man) 0 % 07/19/17 05:02 Monocytes % (Manual) 8.0 % (0.0-7.3) H 07/19/17 05:02 Eosinophils % (Manual) 0 % (0.0-4.3) 07/19/17 05:02 Basophils % (Manual) 0 % (0.0-1.8) 07/19/17 05:02 Metamyelocytes % 0 % 07/19/17 05:02 Myelocytes % 0 % 07/19/17 05:02 Promyelocytes % 0 % 07/19/17 05:02 Blast Cells % 0 % 07/19/17 05:02 Nucleated RBC % Not Reportable 07/19/17 05:02 Seg Neutrophils # 7.3 K/mm3 (1.8-7.7) 07/17/17 11:28 Seg Neutrophils # Man 9.9 K/mm3 (1.8-7.7) H 07/19/17 05:02 Band Neutrophils # 1.3 K/mm3 07/19/17 05:02 Lymphocytes # (Manual) 0.8 K/mm3 (1.2-5.4) L 07/19/17 05:02 Abs React Lymphs (Man) 0.0 K/mm3 07/19/17 05:02 Monocytes # (Manual) 1.0 K/mm3 (0.0-0.8) H 07/19/17 05:02 Eosinophils # (Manual) 0.0 K/mm3 (0.0-0.4) 07/19/17 05:02 Basophils # (Manual) 0.0 K/mm3 (0.0-0.1) 07/19/17 05:02 Metamyelocytes # 0.0 K/mm3 07/19/17 05:02 Myelocytes # 0.0 K/mm3 07/19/17 05:02 Promyelocytes # 0.0 K/mm3 07/19/17 05:02 Blast Cells # 0.0 K/mm3 07/19/17 05:02 WBC Morphology Not Reportable 07/19/17 05:02 Hypersegmented Neuts Not Reportable 07/19/17 05:02 Hyposegmented Neuts Not Reportable 07/19/17 05:02 Hypogranular Neuts Not Reportable 07/19/17 05:02 Smudge Cells Not Reportable 07/19/17 05:02 Toxic Granulation Not Reportable 07/19/17 05:02 Toxic Vacuolation Not Reportable 07/19/17 05:02 Dohle Bodies Not Reportable 07/19/17 05:02 Pelger-Huet Anomaly Not Reportable 07/19/17 05:02 Margarita Rods Not Reportable 07/19/17 05:02 Platelet Estimate Not Reportable 07/19/17 05:02 Clumped Platelets Not Reportable 07/19/17 05:02 Plt Clumps, EDTA Not Reportable 07/19/17 05:02 Large Platelets Not Reportable 07/19/17 05:02 Giant Platelets Not Reportable 07/19/17 05:02 Platelet Satelliting Not Reportable 07/19/17 05:02 Plt Morphology Comment Not Reportable 07/19/17 05:02 RBC Morphology Normal 07/19/17 05:02 Dimorphic RBCs Not Reportable 07/19/17 05:02 Polychromasia Not Reportable 07/19/17 05:02 Hypochromasia Not Reportable 07/19/17 05:02 Poikilocytosis Not Reportable 07/19/17 05:02 Anisocytosis Not Reportable 07/19/17 05:02 Microcytosis Not Reportable 07/19/17 05:02 Macrocytosis Not Reportable 07/19/17 05:02 Spherocytes Not Reportable 07/19/17 05:02 Pappenheimer Bodies Not Reportable 07/19/17 05:02 Sickle Cells Not Reportable 07/19/17 05:02 Target Cells Not Reportable 07/19/17 05:02 Tear Drop Cells Not Reportable 07/19/17 05:02 Ovalocytes Not Reportable 07/19/17 05:02 Helmet Cells Not Reportable 07/19/17 05:02 [place] Bodies Not Reportable 07/19/17 05:02 [place] Rings Not Reportable 07/19/17 05:02 [place] Cells Not Reportable 07/19/17 05:02 Bite Cells Not Reportable 07/19/17 05:02 Crenated Cell Not Reportable 07/19/17 05:02 Elliptocytes Not Reportable 07/19/17 05:02 Acanthocytes (Spur) Not Reportable 07/19/17 05:02 Rouleaux Not Reportable 07/19/17 05:02 Hemoglobin C Crystals Not Reportable 07/19/17 05:02 Schistocytes Not Reportable 07/19/17 05:02 Malaria parasites Not Reportable 07/19/17 05:02 Magan Bodies Not Reportable 07/19/17 05:02 Hem Pathologist Commnt No 07/19/17 05:02 POC ABG pH 7.301 (7.35-7.45) L 07/17/17 12:33 POC ABG pCO2 62.5 (35-45) H 07/17/17 12:33 POC ABG pO2 67 (80-105) L 07/17/17 12:33 POC ABG HCO3 30.8 07/17/17 12:33 POC ABG Total CO2 33 07/17/17 12:33 POC ABG O2 Sat 90 07/17/17 12:33 POC ABG Base Excess 4 07/17/17 12:33 FiO2 40 % 07/17/17 12:33 Sodium 140 mmol/L (137-145) 07/19/17 05:02 Potassium 4.0 mmol/L (3.6-5.0) 07/19/17 05:02 Chloride 94.8 mmol/L (98-107) L 07/19/17 05:02 Carbon Dioxide 33 mmol/L (22-30) H 07/19/17 05:02 Anion Gap 16 mmol/L 07/19/17 05:02 BUN 13 mg/dL (7-17) 07/19/17 05:02 Creatinine 0.7 mg/dL (0.7-1.2) 07/19/17 05:02 Estimated GFR > 60 ml/min 07/19/17 05:02 BUN/Creatinine Ratio 19 % 07/19/17 05:02 Glucose 176 mg/dL (65-100) H 07/19/17 05:02 POC Glucose 108 (70-105) H 07/20/17 09:11 Lactic Acid 0.90 mmol/L (0.7-2.0) 07/17/17 11:28 Calcium 8.1 mg/dL (8.4-10.2) L 07/19/17 05:02 Total Bilirubin 0.20 mg/dL (0.1-1.2) 07/17/17 13:27 AST 12 units/L (5-40) 07/17/17 13:27 ALT 10 units/L (7-56) 07/17/17 13:27 Alkaline Phosphatase 64 units/L (35-129) 07/17/17 13:27 Total Creatine Kinase 39 units/L (30-135) 07/17/17 11:28 CK-MB (CK-2) 3.3 ng/mL (0.0-4.0) 07/17/17 11:28 CK-MB (CK-2) Rel Index 8.4 (0-4) H 07/17/17 11:28 Troponin T 0.066 ng/mL (0.00-0.029) H 07/17/17 11:28 Total Protein 5.6 g/dL (6.3-8.2) L 07/17/17 13:27 Albumin 3.3 g/dL (3.9-5) L 07/17/17 13:27 Albumin/Globulin Ratio 1.4 % 07/17/17 13:27 Triglycerides 146 mg/dL (2-149) 07/17/17 11:28 Cholesterol 156 mg/dL (50-199) 07/17/17 11:28 LDL Cholesterol Direct 99 mg/dL (50-130) 07/17/17 11:28 HDL Cholesterol 39 mg/dL (40-59) L 07/17/17 11:28 Cholesterol/HDL Ratio 4.00 % 07/17/17 11:28
[2017-07-20] MEDS: CORDARONE 150 MG in D5W 97 ML IV ONE ×2 (11:18→12:00)
[2017-07-20] MEDS ORDERED: CARDIZEM IV ONE (11:54)
[2017-07-20] MEDS ORDERED: NACL 0.9% 250ML 250 ML IV ONE (11:55)
[2017-07-20] MEDS ORDERED: NACL 0.9% 1000 ML 1,000 ML ONE (11:55)
[2017-07-20] MEDS ORDERED: CORDARONE 900 MG in D5W 482 ML IV SCH (12:00)
[2017-07-20 12:45] LABS: Hematocrit 42.8 % (30.3-42.9); Hemoglobin 14.5 gm/dl (10.1-14.3); Mean Corpuscular HGB Conc 34 % (30-34); Mean Corpuscular Hemoglobin 33 pg (28-32); Mean Corpuscular Volume 98 fl (79-97); Platelet Count 164 K/mm3 (140-440); Red Blood Count 4.38 M/mm3 (3.65-5.03); Red Cell Distribution Width 14.6 % (13.2-15.2)
[2017-07-20] MEDS ORDERED: NACL 0.9% 1000 ML 1,000 ML IV SCH (13:00)
[2017-07-20] MEDS ORDERED: BREVIBLOC DRIP 2.5GM/250ML 2.5 GM/250 ML BAG IV SCH (13:00)
[2017-07-20] MEDS ORDERED: LANOXIN IV ONE (13:00)
[2017-07-20 13:03] LABS: Alanine Aminotransferase 37 units/L (7-56); Albumin 3.5 g/dL (3.9-5); BUN/Creatinine Ratio 33; Blood Urea Nitrogen 20 mg/dL (7-17); Calcium 8.1 mg/dL (8.4-10.2); Hemolysis Index 5
[2017-07-20 13:04] LABS: Creatine Kinase MB 2.5 ng/mL (0.0-4.0)
[2017-07-20] MEDS ORDERED: PROVENTIL IH ONE (15:54)
[2017-07-20] MEDS: CARDIZEM PO SCH ×2 (16:05→22:09)
[2017-07-20 18:59] LABS: Creatine Kinase MB 2.4 ng/mL (0.0-4.0)
[2017-07-20] MEDS: MOTRIN PO PRN (20:35)
[2017-07-21] MEDS: NOVOLOG SUB-Q SCH ×5 (01:04→22:25)
--- NOTE | 2017-07-21 02:33 | Cardiac Catherization Report ---
The patient is a 56-year-old female with history of chronic obstructive lung disease with hypoxemic respiratory failure, on home oxygen, presented with acute exacerbation of her respiratory failure with encephalopathy. Subsequently, she felt better; however, she complained of palpitations and the monitor showed evidence of atrial flutter at 160-170 per minute. The patient denied any chest pain. Her blood pressure has been on the low side with her heart rate. Hence, it was decided to cardiovert her because of low blood pressure. A request was made for anesthesiologist to monitor for sedation and help us with sedation. They were not able to help with sedation considering she ate at 8:00 this morning. Hence, we decided to proceed with cardioversion with minimal or no sedation with her underlying lung disease. The patient was explained of the same, she understands. The patient was prepared in the standard fashion with application of electrical pads anteriorly and posteriorly attached it to the cardioversion machine and was given 50 joules of energy in a synchronized mode and the patient converted transiently into sinus rhythm for a few seconds, but went back to her atrial flutter and few minutes later spontaneously she converted to sinus rhythm for a few seconds, but went back into her atrial flutter. Considering that the patient is not able to maintain her sinus rhythm, it was decided to start her on antiarrhythmic drugs and control the heart rate. The patient was started on IV amiodarone and also will be started on esmolol IV in the CCU. The patient is comfortable with no acute complaints of chest pain or shortness of breath. Her O2 saturation is 90% on oxygen supplementation. FINAL IMPRESSION: Successful cardioversion with 50 joules of energy with no sedation to sinus rhythm, but not able to sustain the sinus rhythm. Continue antiarrhythmic therapy to control her heart rate. The patient will be monitored in ICU. JOB# [id number] CURT/XIMENA
[2017-07-21] MEDS: DUONEB *Not for PRN Use IH SCH ×4 (02:34→21:17)
[2017-07-21] MEDS: TESSALON PERLES PO SCH ×3 (05:53→22:16)
[2017-07-21] MEDS: BUSPAR PO SCH ×3 (10:39→22:25)
[2017-07-21] MEDS: CYMBALTA PO SCH ×2 (10:39→22:15)
[2017-07-21] MEDS: GLUCOPHAGE PO SCH ×2 (10:40→17:54)
[2017-07-21] MEDS: CARDIZEM PO SCH ×3 (10:40→22:24)
[2017-07-21] MEDS: ZITHROMAX PO SCH (10:41)
[2017-07-21] MEDS: WELLBUTRIN SR PO SCH ×2 (11:13→22:16)
[2017-07-21] MEDS: cefTRIAXone 2 GM in NACL 0.9% 20 ML IV SCH (11:13)
--- NOTE | 2017-07-21 11:53 | Progress Note ---
Assessment and Plan Assessment and plan: New onset afib/flutter with RVR. Chest CTA on 07/17 negative for PE. TSH is low. Check T3 and T4 levels. Troponin is slightly elevated. Await echocardiogram. DCCV with 50J performed and pt converted to SR for several seconds until converting back to AFlutter with RVR. Continue PO cardizem, amio gtt and esmolol gtt. Consider reattempting DCCV if necessary after pt is loaded with amiodarone per cardiology. Acute hypoxemic hypercapnic respiratory failure. Continue O2 on BiPAP as clinically indicated. Etiology secondary to COPD exacerbation. Acute COPD exacerbation. Continue breathing treatments, IV antibiotics, Pulmicort and systemic steroids. Metabolic encephalopathy. Etiology secondary to #1. Resolved. Acute bronchitis. Continue antibiotics. Leukocytosis. Etiology likely secondary to bronchitis versus steroids. Disposition. Transfer to ICU when bed available. - Patient Problems (1) Acute respiratory failure with hypercapnia Current Visit: Yes Status: Acute (2) Respiratory failure Current Visit: No Status: Acute Qualifiers: Chronicity: unspecified Respiratory failure complication: hypoxia and hypercapnia Qualified Code(s): J96.91 - Respiratory failure, unspecified with hypoxia; J96.92 - Respiratory failure, unspecified with hypercapnia; J96.92 - Respiratory failure, unspecified with hypercapnia; J96.92 - Respiratory failure , unspecified with hypercapnia History Interval history: No new issues overnight. Hospitalist Physical - Constitutional Vitals: Temp Pulse Resp BP Pulse Ox 98.6 F 86 22 160/103 84 07/21/17 02:55 07/21/17 10:40 07/21/17 10:00 07/21/17 10:40 07/21/17 04:33 General appearance: Present: no acute distress - EENT Eyes: Present: PERRL, EOM intact ENT: hearing intact, clear oral mucosa, dentition normal - Neck Neck: Present: supple, normal ROM - Respiratory Respiratory effort: normal Respiratory: bilateral: CTA - Cardiovascular Rhythm: regular Heart Sounds: Present: S1 & S2. Absent: gallop, rub - Extremities Extremities: no ischemia, No edema, Full ROM - Abdominal General gastrointestinal: soft, non-tender, non-distended, normal bowel sounds - Integumentary Integumentary: Present: clear, warm, dry - Neurologic Neurologic: CNII-XII intact, moves all extremities Results - Labs CBC & Chem 7: 07/20/17 12:38 07/20/17 12:38 Labs: Laboratory Last Values WBC 12.4 K/mm3 (4.5-11.0) H 07/20/17 12:38 RBC 4.38 M/mm3 (3.65-5.03) 07/20/17 12:38 Hgb 14.5 gm/dl (10.1-14.3) H 07/20/17 12:38 Hct 42.8 % (30.3-42.9) 07/20/17 12:38 MCV 98 fl (79-97) H 07/20/17 12:38 MCH 33 pg (28-32) H 07/20/17 12:38 MCHC 34 % (30-34) 07/20/17 12:38 RDW 14.6 % (13.2-15.2) 07/20/17 12:38 Plt Count 164 K/mm3 (140-440) 07/20/17 12:38 Lymph % (Auto) 10.0 % (13.4-35.0) L 07/17/17 11:28 [place] % (Auto) 6.9 % (0.0-7.3) 07/17/17 11:28 Eos % (Auto) 0.1 % (0.0-4.3) 07/17/17 11:28 Baso % (Auto) 0.2 % (0.0-1.8) 07/17/17 11:28 Lymph # 0.9 K/mm3 (1.2-5.4) L 07/17/17 11:28 [place] # 0.6 K/mm3 (0.0-0.8) 07/17/17 11:28 Eos # 0.0 K/mm3 (0.0-0.4) 07/17/17 11:28 Baso # 0.0 K/mm3 (0.0-0.1) 07/17/17 11:28 Add Manual Diff Complete 07/19/17 05:02 Total Counted 100 07/19/17 05:02 Seg Neutrophils % Centralized Traffic Control Operator 07/19/17 05:02 Seg Neuts % (Manual) 76.0 % (40.0-70.0) H 07/19/17 05:02 Band Neutrophils % 10.0 % 07/19/17 05:02 Lymphocytes % (Manual) 6.0 % (13.4-35.0) L 07/19/17 05:02 Reactive Lymphs % (Man) 0 % 07/19/17 05:02 Monocytes % (Manual) 8.0 % (0.0-7.3) H 07/19/17 05:02 Eosinophils % (Manual) 0 % (0.0-4.3) 07/19/17 05:02 Basophils % (Manual) 0 % (0.0-1.8) 07/19/17 05:02 Metamyelocytes % 0 % 07/19/17 05:02 Myelocytes % 0 % 07/19/17 05:02 Promyelocytes % 0 % 07/19/17 05:02 Blast Cells % 0 % 07/19/17 05:02 Nucleated RBC % Not Reportable 07/19/17 05:02 Seg Neutrophils # 7.3 K/mm3 (1.8-7.7) 07/17/17 11:28 Seg Neutrophils # Man 9.9 K/mm3 (1.8-7.7) H 07/19/17 05:02 Band Neutrophils # 1.3 K/mm3 07/19/17 05:02 Lymphocytes # (Manual) 0.8 K/mm3 (1.2-5.4) L 07/19/17 05:02 Abs React Lymphs (Man) 0.0 K/mm3 07/19/17 05:02 Monocytes # (Manual) 1.0 K/mm3 (0.0-0.8) H 07/19/17 05:02 Eosinophils # (Manual) 0.0 K/mm3 (0.0-0.4) 07/19/17 05:02 Basophils # (Manual) 0.0 K/mm3 (0.0-0.1) 07/19/17 05:02 Metamyelocytes # 0.0 K/mm3 07/19/17 05:02 Myelocytes # 0.0 K/mm3 07/19/17 05:02 Promyelocytes # 0.0 K/mm3 07/19/17 05:02 Blast Cells # 0.0 K/mm3 07/19/17 05:02 WBC Morphology Not Reportable 07/19/17 05:02 Hypersegmented Neuts Not Reportable 07/19/17 05:02 Hyposegmented Neuts Not Reportable 07/19/17 05:02 Hypogranular Neuts Not Reportable 07/19/17 05:02 Smudge Cells Not Reportable 07/19/17 05:02 Toxic Granulation Not Reportable 07/19/17 05:02 Toxic Vacuolation Not Reportable 07/19/17 05:02 Dohle Bodies Not Reportable 07/19/17 05:02 Pelger-Huet Anomaly Not Reportable 07/19/17 05:02 Margarita Rods Not Reportable 07/19/17 05:02 Platelet Estimate Not Reportable 07/19/17 05:02 Clumped Platelets Not Reportable 07/19/17 05:02 Plt Clumps, EDTA Not Reportable 07/19/17 05:02 Large Platelets Not Reportable 07/19/17 05:02 Giant Platelets Not Reportable 07/19/17 05:02 Platelet Satelliting Not Reportable 07/19/17 05:02 Plt Morphology Comment Not Reportable 07/19/17 05:02 RBC Morphology Normal 07/19/17 05:02 Dimorphic RBCs Not Reportable 07/19/17 05:02 Polychromasia Not Reportable 07/19/17 05:02 Hypochromasia Not Reportable 07/19/17 05:02 Poikilocytosis Not Reportable 07/19/17 05:02 Anisocytosis Not Reportable 07/19/17 05:02 Microcytosis Not Reportable 07/19/17 05:02 Macrocytosis Not Reportable 07/19/17 05:02 Spherocytes Not Reportable 07/19/17 05:02 Pappenheimer Bodies Not Reportable 07/19/17 05:02 Sickle Cells Not Reportable 07/19/17 05:02 Target Cells Not Reportable 07/19/17 05:02 Tear Drop Cells Not Reportable 07/19/17 05:02 Ovalocytes Not Reportable 07/19/17 05:02 Helmet Cells Not Reportable 07/19/17 05:02 [place] Bodies Not Reportable 07/19/17 05:02 [place] Rings Not Reportable 07/19/17 05:02 [place] Cells Not Reportable 07/19/17 05:02 Bite Cells Not Reportable 07/19/17 05:02 Crenated Cell Not Reportable 07/19/17 05:02 Elliptocytes Not Reportable 07/19/17 05:02 Acanthocytes (Spur) Not Reportable 07/19/17 05:02 Rouleaux Not Reportable 07/19/17 05:02 Hemoglobin C Crystals Not Reportable 07/19/17 05:02 Schistocytes Not Reportable 07/19/17 05:02 Malaria parasites Not Reportable 07/19/17 05:02 Magan Bodies Not Reportable 07/19/17 05:02 Hem Pathologist Commnt No 07/19/17 05:02 D-Dimer 177.80 ng/mlDDU (0-234) 07/20/17 12:38 POC ABG pH 7.301 (7.35-7.45) L 07/17/17 12:33 POC ABG pCO2 62.5 (35-45) H 07/17/17 12:33 POC ABG pO2 67 (80-105) L 07/17/17 12:33 POC ABG HCO3 30.8 07/17/17 12:33 POC ABG Total CO2 33 07/17/17 12:33 POC ABG O2 Sat 90 07/17/17 12:33 POC ABG Base Excess 4 07/17/17 12:33 FiO2 40 % 07/17/17 12:33 Sodium 137 mmol/L (137-145) 07/20/17 12:38 Potassium 3.9 mmol/L (3.6-5.0) 07/20/17 12:38 Chloride 88.8 mmol/L (98-107) L 07/20/17 12:38 Carbon Dioxide 39 mmol/L (22-30) H 07/20/17 12:38 Anion Gap 13 mmol/L 07/20/17 12:38 BUN 20 mg/dL (7-17) H 07/20/17 12:38 Creatinine 0.6 mg/dL (0.7-1.2) L 07/20/17 12:38 Estimated GFR > 60 ml/min 07/20/17 12:38 BUN/Creatinine Ratio 33 % 07/20/17 12:38 Glucose 166 mg/dL (65-100) H 07/20/17 12:38 POC Glucose 138 (70-105) H 07/20/17 22:44 Lactic Acid 0.90 mmol/L (0.7-2.0) 07/17/17 11:28 Calcium 8.1 mg/dL (8.4-10.2) L 07/20/17 12:38 Magnesium 1.80 mg/dL (1.7-2.3) 07/20/17 12:38 Total Bilirubin 0.30 mg/dL (0.1-1.2) 07/20/17 12:38 AST 31 units/L (5-40) 07/20/17 12:38 ALT 37 units/L (7-56) 07/20/17 12:38 Alkaline Phosphatase 83 units/L (35-129) 07/20/17 12:38 Total Creatine Kinase 210 units/L (30-135) H 07/20/17 18:10 CK-MB (CK-2) 2.4 ng/mL (0.0-4.0) 07/20/17 18:10 CK-MB (CK-2) Rel Index 1.1 (0-4) 07/20/17 18:10 Troponin T 0.042 ng/mL (0.00-0.029) H 07/20/17 18:10 Total Protein 5.8 g/dL (6.3-8.2) L 07/20/17 12:38 Albumin 3.5 g/dL (3.9-5) L 07/20/17 12:38 Albumin/Globulin Ratio 1.5 % 07/20/17 12:38 Triglycerides 146 mg/dL (2-149) 07/17/17 11:28 Cholesterol 156 mg/dL (50-199) 07/17/17 11:28 LDL Cholesterol Direct 99 mg/dL (50-130) 07/17/17 11:28 HDL Cholesterol 39 mg/dL (40-59) L 07/17/17 11:28 Cholesterol/HDL Ratio 4.00 % 07/17/17 11:28 TSH 0.082 mlU/mL (0.270-4.200) L 07/20/17 12:38
[2017-07-21] MEDS: PULMICORT IH SCH ×2 (13:18→21:17)
[2017-07-21] MEDS: BROVANA NEBU IH SCH ×2 (13:18→21:18)
--- NOTE | 2017-07-21 13:50 | Progress Note ---
Assessment and Plan The pt is a 56 YO female with a past medical history significant for HTN, HLP, DM, COPD, chronic respiratory failure requiring home O2, sleep apnea on PM CPAP , breast CA s/p bilateral mastectomy in 2008. She is previously unknown to our practice. She is a [place] pt. She presented with c/o progressively worsening SOB and altered mental status. She reports that she does not recall any events several hours prior to her hospitalization, but was told by her daughter that she became "incoherent". Pt was admitted and treated for COPD exacerbation, acute on chronic respiratory failure and bronchitis. Pt was actually scheduled for discharge home today but developed AFlutter with RVR this AM and thus cardiology has been consulted. On evaluation, pt is noted to be in AFlutter with HR 170s, BPs 90s/50s. Atrial flutter with RVR - new onset >cardioverted with conversion to S.R ,very transiently.back to atrial fib>started on iv amiadorone and PO diltiazem,now in S.R.Considering she is hypertensive,diabetic with chronic respiratory failure will start anticoagulation. Patient in S.R today(07/21/2017).d/c amiadorone. COPD exacerbation Acute bronchitis Acute on chronic respiratory failure HTN HLP DM H/o breast CA - Patient Problems (1) Acute respiratory failure with hypercapnia Current Visit: Yes Status: Acute (2) HCAP (healthcare-associated pneumonia) Current Visit: Yes Status: Acute Subjective Date of service: 07/21/17 Interval history: Patient comfortable. Objective Vital Signs Temp Pulse Pulse Pulse Pulse Pulse Pulse 07/21/17 13:28 82 07/21/17 13:18 80 07/21/17 12:00 90 07/21/17 10:40 86 07/21/17 10:00 86 86 86 86 07/21/17 04:33 125 H 07/21/17 02:55 98.6 F 80 07/21/17 01:14 81 07/21/17 01:13 81 07/20/17 22:09 91 H 07/20/17 22:00 90 07/20/17 21:47 98.1 F 07/20/17 21:36 91 H 07/20/17 21:35 90 07/20/17 21:13 87 07/20/17 21:10 07/20/17 21:03 86 07/20/17 20:52 07/20/17 20:35 07/20/17 19:34 91 H 07/20/17 17:56 98.7 F 93 H 07/20/17 17:08 98.7 F 95 H 07/20/17 16:05 90 07/20/17 14:00 164 H 07/20/17 13:55 158 H Resp Resp Resp BP BP Pulse Ox 07/21/17 13:28 20 07/21/17 13:18 20 07/21/17 12:00 07/21/17 10:40 160/103 07/21/17 10:00 22 22 98 07/21/17 04:33 20 142/92 84 07/21/17 02:55 20 119/64 96 07/21/17 01:14 20 68 L 07/21/17 01:13 119/64 67 L 07/20/17 22:09 153/97 07/20/17 22:00 20 07/20/17 21:47 07/20/17 21:36 99 07/20/17 21:35 20 153/97 97 07/20/17 21:13 16 07/20/17 21:10 98 07/20/17 21:03 18 07/20/17 20:52 18 07/20/17 20:35 20 07/20/17 19:34 07/20/17 17:56 18 132/81 93 07/20/17 17:08 18 132/81 93 07/20/17 16:05 148/85 07/20/17 14:00 32 H 113/81 93 07/20/17 13:55 36 H 114/85 94 - Physical Examination HEENT: Positive: PERRL, Normocephaly, Mucus Membranes Moist Neck: Positive: neck supple, trachea midline Cardiac: Positive: Reg Rate and Rhythm Lungs: Positive: Decreased Breath Sounds (scaterred ronchi .) Neuro: Positive: Grossly Intact Abdomen: Positive: Soft. Negative: Tender Skin: Positive: Clear. Negative: Rash, Wound Musculoskeletal: No Fluid Collection, No Pain, Normal Range of Motion Extremities: Absent: edema - Labs and Meds Cardiac Enzymes 07/20/17 Range/Units 18:10 CK-MB (CK-2) 2.4 (0.0-4.0) ng/mL - Imaging and Cardiology EKG: report reviewed, image reviewed Echo: pending
[2017-07-21] MEDS: ELIQUIS PO SCH (22:16)
[2017-07-22] MEDS: DUONEB *Not for PRN Use IH SCH ×4 (03:37→20:44)
[2017-07-22] MEDS: TESSALON PERLES PO SCH ×3 (06:16→21:36)
[2017-07-22 07:16] LABS: Hematocrit 43.1 % (30.3-42.9); Hemoglobin 14.8 gm/dl (10.1-14.3); Mean Corpuscular HGB Conc 34 % (30-34); Mean Corpuscular Hemoglobin 34 pg (28-32); Mean Corpuscular Volume 98 fl (79-97); Platelet Count 145 K/mm3 (140-440); Red Blood Count 4.41 M/mm3 (3.65-5.03); Red Cell Distribution Width 13.9 % (13.2-15.2)
[2017-07-22 07:35] LABS: BUN/Creatinine Ratio 35; Blood Urea Nitrogen 21 mg/dL (7-17); Calcium 8.4 mg/dL (8.4-10.2); Hemolysis Index 11
[2017-07-22] MEDS: NOVOLOG SUB-Q SCH ×4 (08:27→21:46)
[2017-07-22] MEDS: BUSPAR PO SCH ×3 (08:47→21:36)
[2017-07-22] MEDS: GLUCOPHAGE PO SCH ×2 (08:47→17:22)
[2017-07-22 09:02] LABS: Band Neutrophils # (Manual) 0.2 K/mm3; Basophils % (Manual) 0 % (0.0-1.8); Eosinophils % (Manual) 0 % (0.0-4.3); Monocytes % (Manual) 0 % (0.0-7.3); Total Cells Counted 100
[2017-07-22 09:03] LABS: RBC Morphology Normal
[2017-07-22] MEDS: cefTRIAXone 2 GM in NACL 0.9% 20 ML IV SCH (09:50)
[2017-07-22] MEDS: BROVANA NEBU IH SCH ×2 (10:19→20:43)
[2017-07-22] MEDS: PULMICORT IH SCH ×2 (10:19→20:44)
[2017-07-22] MEDS: CYMBALTA PO SCH ×2 (10:29→21:36)
[2017-07-22] MEDS: ELIQUIS PO SCH ×2 (10:29→21:35)
[2017-07-22] MEDS: ZITHROMAX PO SCH (10:29)
[2017-07-22] MEDS: WELLBUTRIN SR PO SCH ×2 (10:35→21:38)
[2017-07-22] MEDS: CARDIZEM PO SCH ×3 (10:35→21:00)
--- NOTE | 2017-07-22 13:20 | Progress Note ---
Assessment and Plan Assessment and plan: New onset afib/flutter with RVR. Chest CTA on 07/17 negative for PE. TSH is low. Check T3 and T4 levels. Troponin is slightly elevated. Await echocardiogram. DCCV with 50J performed and pt converted to SR for several seconds until converting back to AFlutter with RVR. Continue by mouth Cardizem and eliquis Acute hypoxemic hypercapnic respiratory failure. Continue O2 on BiPAP as clinically indicated. Etiology secondary to COPD exacerbation. Acute COPD exacerbation. Continue breathing treatments, IV antibiotics, Pulmicort and systemic steroids--taper today. Metabolic encephalopathy. Etiology secondary to #1. Resolved. Acute bronchitis. Continue antibiotics. Leukocytosis. Etiology likely secondary to bronchitis versus steroids. Disposition. Transfer to ICU when bed available. - Patient Problems (1) Acute respiratory failure with hypercapnia Current Visit: Yes Status: Acute (2) Respiratory failure Current Visit: No Status: Acute Qualifiers: Chronicity: unspecified Respiratory failure complication: hypoxia and hypercapnia Qualified Code(s): J96.91 - Respiratory failure, unspecified with hypoxia; J96.92 - Respiratory failure, unspecified with hypercapnia; J96.92 - Respiratory failure, unspecified with hypercapnia; J96.92 - Respiratory failure , unspecified with hypercapnia History Interval history: No new issues overnight. Hospitalist Physical - Constitutional Vitals: Temp Pulse Resp BP Pulse Ox 98.4 F 89 17 133/60 98 07/22/17 09:39 07/22/17 10:19 07/22/17 10:19 07/22/17 09:39 07/22/17 10:00 General appearance: Present: no acute distress - EENT Eyes: Present: PERRL, EOM intact ENT: hearing intact, clear oral mucosa, dentition normal - Neck Neck: Present: supple, normal ROM - Respiratory Respiratory effort: normal Respiratory: bilateral: CTA - Cardiovascular Rhythm: regular Heart Sounds: Present: S1 & S2. Absent: gallop, rub - Extremities Extremities: no ischemia, No edema, Full ROM - Abdominal General gastrointestinal: soft, non-tender, non-distended, normal bowel sounds - Integumentary Integumentary: Present: clear, warm, dry - Neurologic Neurologic: CNII-XII intact, moves all extremities Results - Labs CBC & Chem 7: 07/22/17 06:56 07/22/17 06:56 Labs: Laboratory Last Values WBC 11.3 K/mm3 (4.5-11.0) H 07/22/17 06:56 RBC 4.41 M/mm3 (3.65-5.03) 07/22/17 06:56 Hgb 14.8 gm/dl (10.1-14.3) H 07/22/17 06:56 Hct 43.1 % (30.3-42.9) H 07/22/17 06:56 MCV 98 fl (79-97) H 07/22/17 06:56 MCH 34 pg (28-32) H 07/22/17 06:56 MCHC 34 % (30-34) 07/22/17 06:56 RDW 13.9 % (13.2-15.2) 07/22/17 06:56 Plt Count 145 K/mm3 (140-440) 07/22/17 06:56 Lymph % (Auto) 10.0 % (13.4-35.0) L 07/17/17 11:28 [place] % (Auto) 6.9 % (0.0-7.3) 07/17/17 11:28 Eos % (Auto) 0.1 % (0.0-4.3) 07/17/17 11:28 Baso % (Auto) 0.2 % (0.0-1.8) 07/17/17 11:28 Lymph # 0.9 K/mm3 (1.2-5.4) L 07/17/17 11:28 [place] # 0.6 K/mm3 (0.0-0.8) 07/17/17 11:28 Eos # 0.0 K/mm3 (0.0-0.4) 07/17/17 11:28 Baso # 0.0 K/mm3 (0.0-0.1) 07/17/17 11:28 Add Manual Diff Complete 07/22/17 06:56 Total Counted 100 07/22/17 06:56 Seg Neutrophils % Echo Tech 07/19/17 05:02 Seg Neuts % (Manual) 94.0 % (40.0-70.0) H 07/22/17 06:56 Band Neutrophils % 2.0 % 07/22/17 06:56 Lymphocytes % (Manual) 3.0 % (13.4-35.0) L 07/22/17 06:56 Reactive Lymphs % (Man) 1.0 % 07/22/17 06:56 Monocytes % (Manual) 0 % (0.0-7.3) 07/22/17 06:56 Eosinophils % (Manual) 0 % (0.0-4.3) 07/22/17 06:56 Basophils % (Manual) 0 % (0.0-1.8) 07/22/17 06:56 Metamyelocytes % 0 % 07/22/17 06:56 Myelocytes % 0 % 07/22/17 06:56 Promyelocytes % 0 % 07/22/17 06:56 Blast Cells % 0 % 07/22/17 06:56 Nucleated RBC % Not Reportable 07/22/17 06:56 Seg Neutrophils # 7.3 K/mm3 (1.8-7.7) 07/17/17 11:28 Seg Neutrophils # Man 10.6 K/mm3 (1.8-7.7) H 07/22/17 06:56 Band Neutrophils # 0.2 K/mm3 07/22/17 06:56 Lymphocytes # (Manual) 0.3 K/mm3 (1.2-5.4) L 07/22/17 06:56 Abs React Lymphs (Man) 0.1 K/mm3 07/22/17 06:56 Monocytes # (Manual) 0.0 K/mm3 (0.0-0.8) 07/22/17 06:56 Eosinophils # (Manual) 0.0 K/mm3 (0.0-0.4) 07/22/17 06:56 Basophils # (Manual) 0.0 K/mm3 (0.0-0.1) 07/22/17 06:56 Metamyelocytes # 0.0 K/mm3 07/22/17 06:56 Myelocytes # 0.0 K/mm3 07/22/17 06:56 Promyelocytes # 0.0 K/mm3 07/22/17 06:56 Blast Cells # 0.0 K/mm3 07/22/17 06:56 WBC Morphology Not Reportable 07/22/17 06:56 Hypersegmented Neuts Not Reportable 07/22/17 06:56 Hyposegmented Neuts Not Reportable 07/22/17 06:56 Hypogranular Neuts Not Reportable 07/22/17 06:56 Smudge Cells Not Reportable 07/22/17 06:56 Toxic Granulation Not Reportable 07/22/17 06:56 Toxic Vacuolation Not Reportable 07/22/17 06:56 Dohle Bodies Not Reportable 07/22/17 06:56 Pelger-Huet Anomaly Not Reportable 07/22/17 06:56 Margarita Rods Not Reportable 07/22/17 06:56 Platelet Estimate Appears normal 07/22/17 06:56 Clumped Platelets Not Reportable 07/22/17 06:56 Plt Clumps, EDTA Not Reportable 07/22/17 06:56 Large Platelets Not Reportable 07/22/17 06:56 Giant Platelets Not Reportable 07/22/17 06:56 Platelet Satelliting Not Reportable 07/22/17 06:56 Plt Morphology Comment Not Reportable 07/22/17 06:56 RBC Morphology Normal 07/22/17 06:56 Dimorphic RBCs Not Reportable 07/22/17 06:56 Polychromasia Not Reportable 07/22/17 06:56 Hypochromasia Not Reportable 07/22/17 06:56 Poikilocytosis Not Reportable 07/22/17 06:56 Anisocytosis Not Reportable 07/22/17 06:56 Microcytosis Not Reportable 07/22/17 06:56 Macrocytosis Not Reportable 07/22/17 06:56 Spherocytes Not Reportable 07/22/17 06:56 Pappenheimer Bodies Not Reportable 07/22/17 06:56 Sickle Cells Not Reportable 07/22/17 06:56 Target Cells Not Reportable 07/22/17 06:56 Tear Drop Cells Not Reportable 07/22/17 06:56 Ovalocytes Not Reportable 07/22/17 06:56 Helmet Cells Not Reportable 07/22/17 06:56 [place] Bodies Not Reportable 07/22/17 06:56 [place] Rings Not Reportable 07/22/17 06:56 [place] Cells Not Reportable 07/22/17 06:56 Bite Cells Not Reportable 07/22/17 06:56 Crenated Cell Not Reportable 07/22/17 06:56 Elliptocytes Not Reportable 07/22/17 06:56 Acanthocytes (Spur) Not Reportable 07/22/17 06:56 Rouleaux Not Reportable 07/22/17 06:56 Hemoglobin C Crystals Not Reportable 07/22/17 06:56 Schistocytes Not Reportable 07/22/17 06:56 Malaria parasites Not Reportable 07/22/17 06:56 [place] Bodies Not Reportable 07/22/17 06:56 Hem Pathologist Commnt No 07/22/17 06:56 D-Dimer 177.80 ng/mlDDU (0-234) 07/20/17 12:38 POC ABG pH 7.301 (7.35-7.45) L 07/17/17 12:33 POC ABG pCO2 62.5 (35-45) H 07/17/17 12:33 POC ABG pO2 67 (80-105) L 07/17/17 12:33 POC ABG HCO3 30.8 07/17/17 12:33 POC ABG Total CO2 33 07/17/17 12:33 POC ABG O2 Sat 90 07/17/17 12:33 POC ABG Base Excess 4 07/17/17 12:33 FiO2 40 % 07/17/17 12:33 Sodium 138 mmol/L (137-145) 07/22/17 06:56 Potassium 3.8 mmol/L (3.6-5.0) 07/22/17 06:56 Chloride 89.1 mmol/L (98-107) L 07/22/17 06:56 Carbon Dioxide 41 mmol/L (22-30) H* 07/22/17 06:56 Anion Gap 12 mmol/L 07/22/17 06:56 BUN 21 mg/dL (7-17) H 07/22/17 06:56 Creatinine 0.6 mg/dL (0.7-1.2) L 07/22/17 06:56 Estimated GFR > 60 ml/min 07/22/17 06:56 BUN/Creatinine Ratio 35 % 07/22/17 06:56 Glucose 168 mg/dL (65-100) H 07/22/17 06:56 POC Glucose 163 (70-105) H 07/22/17 12:16 Lactic Acid 0.90 mmol/L (0.7-2.0) 07/17/17 11:28 Calcium 8.4 mg/dL (8.4-10.2) 07/22/17 06:56 Magnesium 1.80 mg/dL (1.7-2.3) 07/20/17 12:38 Total Bilirubin 0.30 mg/dL (0.1-1.2) 07/20/17 12:38 AST 31 units/L (5-40) 07/20/17 12:38 ALT 37 units/L (7-56) 07/20/17 12:38 Alkaline Phosphatase 83 units/L (35-129) 07/20/17 12:38 Total Creatine Kinase 210 units/L (30-135) H 07/20/17 18:10 CK-MB (CK-2) 2.4 ng/mL (0.0-4.0) 07/20/17 18:10 CK-MB (CK-2) Rel Index 1.1 (0-4) 07/20/17 18:10 Troponin T 0.042 ng/mL (0.00-0.029) H 07/20/17 18:10 Total Protein 5.8 g/dL (6.3-8.2) L 07/20/17 12:38 Albumin 3.5 g/dL (3.9-5) L 07/20/17 12:38 Albumin/Globulin Ratio 1.5 % 07/20/17 12:38 Triglycerides 146 mg/dL (2-149) 07/17/17 11:28 Cholesterol 156 mg/dL (50-199) 07/17/17 11:28 LDL Cholesterol Direct 99 mg/dL (50-130) 07/17/17 11:28 HDL Cholesterol 39 mg/dL (40-59) L 07/17/17 11:28 Cholesterol/HDL Ratio 4.00 % 07/17/17 11:28 TSH 0.082 mlU/mL (0.270-4.200) L 07/20/17 12:38 Free T4 0.82 ng/dL (0.76-1.46) 07/21/17 14:56
--- NOTE | 2017-07-22 18:24 | Progress Note ---
Assessment and Plan The pt is a 56 YO female with a past medical history significant for HTN, HLP, DM, COPD, chronic respiratory failure requiring home O2, sleep apnea on PM CPAP , breast CA s/p bilateral mastectomy in 2008. She is previously unknown to our practice. She is a [place] pt. She presented with c/o progressively worsening SOB and altered mental status. She reports that she does not recall any events several hours prior to her hospitalization, but was told by her daughter that she became "incoherent". Pt was admitted and treated for COPD exacerbation, acute on chronic respiratory failure and bronchitis. Pt was actually scheduled for discharge home today but developed AFlutter with RVR this AM and thus cardiology has been consulted. On evaluation, pt is noted to be in AFlutter with HR 170s, BPs 90s/50s. Atrial flutter with RVR - new onset >cardioverted with conversion to S.R ,very transiently.back to atrial fib>started on iv amiadorone and PO diltiazem,now in S.R.Considering she is hypertensive,diabetic with chronic respiratory failure will start anticoagulation. Patient in S.R today(07/21/2017).d/c amiadorone. 07/22/2017>Patient continues be in S.R,Continue present meds including Eliquis. COPD exacerbation Acute bronchitis Acute on chronic respiratory failure HTN HLP DM H/o breast CA - Patient Problems (1) Acute respiratory failure with hypercapnia Current Visit: Yes Status: Acute (2) HCAP (healthcare-associated pneumonia) Current Visit: Yes Status: Acute Subjective Date of service: 07/22/17 Interval history: Patient comfortable.No complaints. Objective Vital Signs Temp Pulse Pulse Pulse Pulse Pulse Resp 07/22/17 14:33 89 07/22/17 13:44 80 07/22/17 12:00 83 07/22/17 10:19 89 07/22/17 10:00 82 84 83 22 07/22/17 09:39 98.4 F 91 H 18 07/22/17 04:13 97.9 F 89 18 07/21/17 23:31 98.1 F 88 18 07/21/17 22:40 07/21/17 22:24 75 07/21/17 22:00 80 22 07/21/17 21:14 84 07/21/17 21:04 81 07/21/17 19:35 98.3 F 75 18 07/21/17 19:26 80 Resp Resp BP Pulse Ox 07/22/17 14:33 17 07/22/17 13:44 131/80 07/22/17 12:00 07/22/17 10:19 17 07/22/17 10:00 96 07/22/17 09:39 133/60 96 07/22/17 04:13 144/84 82 L 07/21/17 23:31 157/94 96 07/21/17 22:40 98 07/21/17 22:24 144/87 07/21/17 22:00 18 07/21/17 21:14 18 07/21/17 21:04 20 07/21/17 19:35 144/87 96 07/21/17 19:26 - Physical Examination HEENT: Positive: PERRL, Normocephaly, Mucus Membranes Moist Neck: Positive: neck supple, trachea midline Lungs: Positive: Decreased Breath Sounds, Rhonchi (scatered ronchi noted.) Neuro: Positive: Grossly Intact Abdomen: Positive: Soft. Negative: Tender Skin: Positive: Clear. Negative: Rash, Wound Extremities: Absent: edema - Labs and Meds CBC 07/22/17 Range/Units 06:56 WBC 11.3 H (4.5-11.0) K/mm3 RBC 4.41 (3.65-5.03) M/mm3 Hgb 14.8 H (10.1-14.3) gm/dl Hct 43.1 H (30.3-42.9) % Plt Count 145 (140-440) K/mm3 Comprehensive Metabolic Panel 07/22/17 Range/Units 06:56 Sodium 138 (137-145) mmol/L Potassium 3.8 (3.6-5.0) mmol/L Chloride 89.1 L (98-107) mmol/L Carbon Dioxide 41 H* (22-30) mmol/L BUN 21 H (7-17) mg/dL Creatinine 0.6 L (0.7-1.2) mg/dL Glucose 168 H (65-100) mg/dL Calcium 8.4 (8.4-10.2) mg/dL - Imaging and Cardiology EKG: report reviewed, image reviewed Echo: pending - Telemetry EKG Rhythm: Sinus Rhythm
[2017-07-23] MEDS: TESSALON PERLES PO SCH ×3 (05:56→21:30)
[2017-07-23] MEDS: NOVOLOG SUB-Q SCH ×4 (08:11→21:34)
[2017-07-23] MEDS: CYMBALTA PO SCH ×2 (09:16→21:33)
[2017-07-23] MEDS: GLUCOPHAGE PO SCH ×2 (09:16→18:57)
[2017-07-23] MEDS: BUSPAR PO SCH ×3 (09:16→21:29)
[2017-07-23] MEDS: ZITHROMAX PO SCH (09:17)
[2017-07-23] MEDS: CARDIZEM PO SCH ×3 (09:18→21:32)
[2017-07-23] MEDS: ELIQUIS PO SCH ×2 (09:18→21:31)
[2017-07-23] MEDS: WELLBUTRIN SR PO SCH ×2 (09:18→21:31)
--- NOTE | 2017-07-23 10:12 | Progress Note ---
Assessment and Plan Assessment and plan: New onset afib/flutter with RVR. Chest CTA on 07/17 negative for PE. TSH is low. Check T3 and T4 levels. Troponin is slightly elevated. Await echocardiogram. Continue by mouth Cardizem and eliquis Acute hypoxemic hypercapnic respiratory failure. Continue O2 on BiPAP as clinically indicated. Etiology secondary to COPD exacerbation. Acute COPD exacerbation. Continue breathing treatments, IV antibiotics, Pulmicort and systemic steroids--cont. taper. Metabolic encephalopathy. Etiology secondary to #1. Resolved. Acute bronchitis. Continue antibiotics. Leukocytosis. Etiology likely secondary to bronchitis versus steroids. D - Patient Problems (1) Acute respiratory failure with hypercapnia Current Visit: Yes Status: Acute (2) Respiratory failure Current Visit: No Status: Acute Qualifiers: Chronicity: unspecified Respiratory failure complication: hypoxia and hypercapnia Qualified Code(s): J96.91 - Respiratory failure, unspecified with hypoxia; J96.92 - Respiratory failure, unspecified with hypercapnia; J96.92 - Respiratory failure, unspecified with hypercapnia; J96.92 - Respiratory failure , unspecified with hypercapnia History Interval history: No new issues overnight. Hospitalist Physical - Constitutional Vitals: Temp Pulse Resp BP Pulse Ox 98.8 F 86 20 137/91 95 07/23/17 07:55 07/23/17 09:18 07/23/17 07:55 07/23/17 09:18 07/23/17 07:55 General appearance: Present: no acute distress - EENT Eyes: Present: PERRL, EOM intact ENT: hearing intact, clear oral mucosa, dentition normal - Neck Neck: Present: supple, normal ROM - Respiratory Respiratory effort: normal Respiratory: bilateral: CTA - Cardiovascular Rhythm: regular Heart Sounds: Present: S1 & S2. Absent: gallop, rub - Extremities Extremities: no ischemia, No edema, Full ROM - Abdominal General gastrointestinal: soft, non-tender, non-distended, normal bowel sounds - Integumentary Integumentary: Present: clear, warm, dry - Neurologic Neurologic: CNII-XII intact, moves all extremities Results - Labs CBC & Chem 7: 07/22/17 06:56 07/22/17 06:56 Labs: Laboratory Last Values WBC 11.3 K/mm3 (4.5-11.0) H 07/22/17 06:56 RBC 4.41 M/mm3 (3.65-5.03) 07/22/17 06:56 Hgb 14.8 gm/dl (10.1-14.3) H 07/22/17 06:56 Hct 43.1 % (30.3-42.9) H 07/22/17 06:56 MCV 98 fl (79-97) H 07/22/17 06:56 MCH 34 pg (28-32) H 07/22/17 06:56 MCHC 34 % (30-34) 07/22/17 06:56 RDW 13.9 % (13.2-15.2) 07/22/17 06:56 Plt Count 145 K/mm3 (140-440) 07/22/17 06:56 Lymph % (Auto) 10.0 % (13.4-35.0) L 07/17/17 11:28 [place] % (Auto) 6.9 % (0.0-7.3) 07/17/17 11:28 Eos % (Auto) 0.1 % (0.0-4.3) 07/17/17 11:28 Baso % (Auto) 0.2 % (0.0-1.8) 07/17/17 11:28 Lymph # 0.9 K/mm3 (1.2-5.4) L 07/17/17 11:28 [place] # 0.6 K/mm3 (0.0-0.8) 07/17/17 11:28 Eos # 0.0 K/mm3 (0.0-0.4) 07/17/17 11:28 Baso # 0.0 K/mm3 (0.0-0.1) 07/17/17 11:28 Add Manual Diff Complete 07/22/17 06:56 Total Counted 100 07/22/17 06:56 Seg Neutrophils % Transplant Case Manager 07/19/17 05:02 Seg Neuts % (Manual) 94.0 % (40.0-70.0) H 07/22/17 06:56 Band Neutrophils % 2.0 % 07/22/17 06:56 Lymphocytes % (Manual) 3.0 % (13.4-35.0) L 07/22/17 06:56 Reactive Lymphs % (Man) 1.0 % 07/22/17 06:56 Monocytes % (Manual) 0 % (0.0-7.3) 07/22/17 06:56 Eosinophils % (Manual) 0 % (0.0-4.3) 07/22/17 06:56 Basophils % (Manual) 0 % (0.0-1.8) 07/22/17 06:56 Metamyelocytes % 0 % 07/22/17 06:56 Myelocytes % 0 % 07/22/17 06:56 Promyelocytes % 0 % 07/22/17 06:56 Blast Cells % 0 % 07/22/17 06:56 Nucleated RBC % Not Reportable 07/22/17 06:56 Seg Neutrophils # 7.3 K/mm3 (1.8-7.7) 07/17/17 11:28 Seg Neutrophils # Man 10.6 K/mm3 (1.8-7.7) H 07/22/17 06:56 Band Neutrophils # 0.2 K/mm3 07/22/17 06:56 Lymphocytes # (Manual) 0.3 K/mm3 (1.2-5.4) L 07/22/17 06:56 Abs React Lymphs (Man) 0.1 K/mm3 07/22/17 06:56 Monocytes # (Manual) 0.0 K/mm3 (0.0-0.8) 07/22/17 06:56 Eosinophils # (Manual) 0.0 K/mm3 (0.0-0.4) 07/22/17 06:56 Basophils # (Manual) 0.0 K/mm3 (0.0-0.1) 07/22/17 06:56 Metamyelocytes # 0.0 K/mm3 07/22/17 06:56 Myelocytes # 0.0 K/mm3 07/22/17 06:56 Promyelocytes # 0.0 K/mm3 07/22/17 06:56 Blast Cells # 0.0 K/mm3 07/22/17 06:56 WBC Morphology Not Reportable 07/22/17 06:56 Hypersegmented Neuts Not Reportable 07/22/17 06:56 Hyposegmented Neuts Not Reportable 07/22/17 06:56 Hypogranular Neuts Not Reportable 07/22/17 06:56 Smudge Cells Not Reportable 07/22/17 06:56 Toxic Granulation Not Reportable 07/22/17 06:56 Toxic Vacuolation Not Reportable 07/22/17 06:56 Dohle Bodies Not Reportable 07/22/17 06:56 Pelger-Huet Anomaly Not Reportable 07/22/17 06:56 Margarita Rods Not Reportable 07/22/17 06:56 Platelet Estimate Appears normal 07/22/17 06:56 Clumped Platelets Not Reportable 07/22/17 06:56 Plt Clumps, EDTA Not Reportable 07/22/17 06:56 Large Platelets Not Reportable 07/22/17 06:56 Giant Platelets Not Reportable 07/22/17 06:56 Platelet Satelliting Not Reportable 07/22/17 06:56 Plt Morphology Comment Not Reportable 07/22/17 06:56 RBC Morphology Normal 07/22/17 06:56 Dimorphic RBCs Not Reportable 07/22/17 06:56 Polychromasia Not Reportable 07/22/17 06:56 Hypochromasia Not Reportable 07/22/17 06:56 Poikilocytosis Not Reportable 07/22/17 06:56 Anisocytosis Not Reportable 07/22/17 06:56 Microcytosis Not Reportable 07/22/17 06:56 Macrocytosis Not Reportable 07/22/17 06:56 Spherocytes Not Reportable 07/22/17 06:56 Pappenheimer Bodies Not Reportable 07/22/17 06:56 Sickle Cells Not Reportable 07/22/17 06:56 Target Cells Not Reportable 07/22/17 06:56 Tear Drop Cells Not Reportable 07/22/17 06:56 Ovalocytes Not Reportable 07/22/17 06:56 Helmet Cells Not Reportable 07/22/17 06:56 [place] Bodies Not Reportable 07/22/17 06:56 [place] Rings Not Reportable 07/22/17 06:56 [place] Cells Not Reportable 07/22/17 06:56 Bite Cells Not Reportable 07/22/17 06:56 Crenated Cell Not Reportable 07/22/17 06:56 Elliptocytes Not Reportable 07/22/17 06:56 Acanthocytes (Spur) Not Reportable 07/22/17 06:56 Rouleaux Not Reportable 07/22/17 06:56 Hemoglobin C Crystals Not Reportable 07/22/17 06:56 Schistocytes Not Reportable 07/22/17 06:56 Malaria parasites Not Reportable 07/22/17 06:56 Magan Bodies Not Reportable 07/22/17 06:56 Hem Pathologist Commnt No 07/22/17 06:56 D-Dimer 177.80 ng/mlDDU (0-234) 07/20/17 12:38 POC ABG pH 7.301 (7.35-7.45) L 07/17/17 12:33 POC ABG pCO2 62.5 (35-45) H 07/17/17 12:33 POC ABG pO2 67 (80-105) L 07/17/17 12:33 POC ABG HCO3 30.8 07/17/17 12:33 POC ABG Total CO2 33 07/17/17 12:33 POC ABG O2 Sat 90 07/17/17 12:33 POC ABG Base Excess 4 07/17/17 12:33 FiO2 40 % 07/17/17 12:33 Sodium 138 mmol/L (137-145) 07/22/17 06:56 Potassium 3.8 mmol/L (3.6-5.0) 07/22/17 06:56 Chloride 89.1 mmol/L (98-107) L 07/22/17 06:56 Carbon Dioxide 41 mmol/L (22-30) H* 07/22/17 06:56 Anion Gap 12 mmol/L 07/22/17 06:56 BUN 21 mg/dL (7-17) H 07/22/17 06:56 Creatinine 0.6 mg/dL (0.7-1.2) L 07/22/17 06:56 Estimated GFR > 60 ml/min 07/22/17 06:56 BUN/Creatinine Ratio 35 % 07/22/17 06:56 Glucose 168 mg/dL (65-100) H 07/22/17 06:56 POC Glucose 139 (70-105) H 07/23/17 08:02 Lactic Acid 0.90 mmol/L (0.7-2.0) 07/17/17 11:28 Calcium 8.4 mg/dL (8.4-10.2) 07/22/17 06:56 Magnesium 1.80 mg/dL (1.7-2.3) 07/20/17 12:38 Total Bilirubin 0.30 mg/dL (0.1-1.2) 07/20/17 12:38 AST 31 units/L (5-40) 07/20/17 12:38 ALT 37 units/L (7-56) 07/20/17 12:38 Alkaline Phosphatase 83 units/L (35-129) 07/20/17 12:38 Total Creatine Kinase 210 units/L (30-135) H 07/20/17 18:10 CK-MB (CK-2) 2.4 ng/mL (0.0-4.0) 07/20/17 18:10 CK-MB (CK-2) Rel Index 1.1 (0-4) 07/20/17 18:10 Troponin T 0.042 ng/mL (0.00-0.029) H 07/20/17 18:10 Total Protein 5.8 g/dL (6.3-8.2) L 07/20/17 12:38 Albumin 3.5 g/dL (3.9-5) L 07/20/17 12:38 Albumin/Globulin Ratio 1.5 % 07/20/17 12:38 Triglycerides 146 mg/dL (2-149) 07/17/17 11:28 Cholesterol 156 mg/dL (50-199) 07/17/17 11:28 LDL Cholesterol Direct 99 mg/dL (50-130) 07/17/17 11:28 HDL Cholesterol 39 mg/dL (40-59) L 07/17/17 11:28 Cholesterol/HDL Ratio 4.00 % 07/17/17 11:28 TSH 0.082 mlU/mL (0.270-4.200) L 07/20/17 12:38 Free T4 0.82 ng/dL (0.76-1.46) 07/21/17 14:56
[2017-07-23] MEDS: BROVANA NEBU IH SCH ×2 (10:32→20:19)
[2017-07-23] MEDS: PULMICORT IH SCH ×2 (10:32→20:19)
[2017-07-23] MEDS: DUONEB *Not for PRN Use IH SCH ×3 (10:33→20:43)
--- NOTE | 2017-07-23 12:51 | Progress Note ---
Assessment and Plan Assessment: Atrial flutter with RVR --> SR; new onset; on Eliquis COPD exacerbation Acute bronchitis Acute on chronic respiratory failure Encephalopathy HTN HLP DM H/o breast CA Plan: Currently stable cardiac status. Pt remains in SR. Pt may discharge home from cardiology standpoint. On discharge, recommend conversion of PO cardizem 60 TID to cardizem CD 180mg daily to encourage medication compliance. Recommend pt follow up with [facility] [facility] within 1-2 weeks of hospital discharge. Assessment and plan reviewed with pt at bedside. The patient has been seen in conjunction with Dr. Lien Tim who agrees with the assessment and plan of care. Subjective Date of service: 07/23/17 Principal diagnosis: AFib with RVR; COPD exac Interval history: Pt resting comfortably in bed, remains in SR on telemetry. No current cardiac complaints. Objective Last Vital Signs Temp 98.8 F 07/23/17 07:55 Pulse 86 07/23/17 09:18 Resp 20 07/23/17 07:55 BP 137/91 07/23/17 09:18 Pulse Ox 95 07/23/17 07:55 - Physical Examination HEENT: Positive: PERRL, Normocephaly, Mucus Membranes Moist Neck: Positive: neck supple, trachea midline Cardiac: Positive: Reg Rate and Rhythm, S1/S2 Lungs: Positive: Decreased Breath Sounds, Wheezes Neuro: Positive: Grossly Intact Abdomen: Positive: Soft. Negative: Tender Skin: Positive: Clear. Negative: Rash, Wound Musculoskeletal: No Fluid Collection, No Pain, Normal Range of Motion Extremities: Absent: edema - Imaging and Cardiology EKG: report reviewed, image reviewed Echo: report reviewed - Telemetry EKG Rhythm: Sinus Rhythm
[2017-07-23] MEDS: cefTRIAXone 2 GM in NACL 0.9% 20 ML IV SCH (13:40)
[2017-07-24] MEDS: TESSALON PERLES PO SCH (05:07)
[2017-07-24 06:56] LABS: Hematocrit 46.3 % (30.3-42.9); Mean Corpuscular HGB Conc 35 % (30-34); Mean Corpuscular Hemoglobin 34 pg (28-32); Mean Corpuscular Volume 97 fl (79-97); Platelet Count 209 K/mm3 (140-440); Red Blood Count 4.78 M/mm3 (3.65-5.03); Red Cell Distribution Width 13.9 % (13.2-15.2)
[2017-07-24 07:10] LABS: BUN/Creatinine Ratio 28; Blood Urea Nitrogen 17 mg/dL (7-17); Calcium 9.2 mg/dL (8.4-10.2); Hemolysis Index 15
[2017-07-24] MEDS: BUSPAR PO SCH (08:37)
[2017-07-24] MEDS: CARDIZEM PO SCH (08:39)
[2017-07-24] MEDS: GLUCOPHAGE PO SCH (08:39)
[2017-07-24 08:50] LABS: Band Neutrophils # (Manual) 0.3 K/mm3; Basophils % (Manual) 0 % (0.0-1.8); Eosinophils % (Manual) 0 % (0.0-4.3); RBC Morphology Normal; Total Cells Counted 100
[2017-07-24] MEDS: CYMBALTA PO SCH (09:20)
[2017-07-24] MEDS: cefTRIAXone 2 GM in NACL 0.9% 20 ML IV SCH (09:20)
[2017-07-24] MEDS: NOVOLOG SUB-Q SCH (09:21)
[2017-07-24] MEDS: WELLBUTRIN SR PO SCH (09:21)
[2017-07-24] MEDS: ZITHROMAX PO SCH (09:21)
[2017-07-24] MEDS: ELIQUIS PO SCH (09:28)
[2017-07-24] MEDS: DUONEB *Not for PRN Use IH SCH (09:46)
[2017-07-24] MEDS: PULMICORT IH SCH (09:46)
[2017-07-24] MEDS: BROVANA NEBU IH SCH (09:46)
[2017-07-24 09:53] VITALS: BP 156/97
--- NOTE | 2017-07-24 10:26 | Discharge Summary ---
Providers - Providers Date of Admission: 07/17/17 14:59 Date of discharge: 07/24/17 Attending physician: DONELL PULIDO 07/20/17 10:16 Consult to Physician [CONS] Routine Consulting Provider: BECCA CORTES Reason For Exam: afib with rvr Place consult to:: [facility] Notified:: lidia Was contact made?: Yes Time called:: 10:18 Comment:: lidia on floor Primary care physician: ANNE QUIJANO Hospitalization Condition: Good Pertinent studies: Echocardiogram shows ejection fraction of 55-60% with evidence of mild pulmonary hypertension Hospital course: Patient is a 56-year-old female with medical history significant for COPD, generalized anxiety disorder, depression, muscle spasms, history of cancer, irritable bowel syndrome and diverticulosis. She presented to the emergency room with complaints of shortness of breath with a productive cough with mucoid sputum. Patient has a history of smoking in the past. Patient was admitted with a diagnosis of acute hypoxemic hypercapnic respiratory failure. The patient was treated with O2 on BiPAP. Patient also received empiric IV antibiotics, Pulmicort and systemic steroids. Patient has some initial confusion on admission which was attributed to metabolic encephalopathy from hypercapnia. Patient's symptoms resolved and respiratory status improved. During her hospital stay, patient developed a new onset atrial flutter but was asymptomatic. She was cardioverted with conversion to sinus rhythm very transiently back to atrial fibrillation. Patient was treated with amiodarone and was initiated on Cardizem and Eliquis. Upon discharge patient was back to sinus rhythm. Patient advised to follow up with laboratory engineer at [facility] within 1-2 weeks. Discharge diagnoses Acute respiratory failure with hypercapnia COPD exacerbation Metabolic encephalopathy Acute bronchitis Leukocytosis New onset A. fib with RVR New onset atrial flutter Disposition: -01 TO HOME OR SELFCARE Time spent for discharge: 32 minutes Core Measure Documentation - Palliative Care Palliative Care/ Comfort Measures: Not Applicable - Core Measures Any of the following diagnoses?: none Exam - Constitutional Vitals: Temp Pulse Resp BP Pulse Ox 98.4 F 77 20 156/97 98 07/24/17 09:51 07/24/17 09:51 07/24/17 09:51 07/24/17 09:51 07/24/17 09:51 General appearance: Present: no acute distress, well-nourished - EENT Eyes: Present: PERRL ENT: hearing intact, clear oral mucosa - Neck Neck: Present: supple, normal ROM - Respiratory Respiratory effort: normal Respiratory: bilateral: CTA - Cardiovascular Heart Sounds: Present: S1 & S2. Absent: rub, click - Extremities Extremities: pulses symmetrical, No edema Peripheral Pulses: within normal limits - Abdominal General gastrointestinal: Present: soft, non-tender, non-distended, normal bowel sounds - Integumentary Integumentary: Present: clear, warm, dry - Musculoskeletal Musculoskeletal: gait normal, strength equal bilaterally - Psychiatric Psychiatric: appropriate mood/affect, intact judgment & insight - Neurologic Neurologic: CNII-XII intact, moves all extremities - Allied Health Allied health notes reviewed: nursing Plan Activity: no restrictions, fall precautions ( ) Diet: low fat, low cholesterol, low salt Additional Instructions: Follow up with [facility] laboratory engineer in 1-2 weeks and Primary Care Provider in 3-5 days Follow up with: ANNE QUIJANO MD [Primary Care Provider] - 7 Days Prescriptions: Apixaban [Eliquis] 5 mg PO Q12HR #60 tablet Arformoterol Nebu [Brovana Nebu] 15 mcg IH Q12HRT #30 ml Azithromycin [Zithromax TAB] 500 mg PO QDAY #5 tablet Baclofen [Lioresal] 5 - 10 mg PO TID PRN #30 tablet PRN Reason: Spasms Benzonatate [Tessalon Perles] 100 mg PO Q8HR #30 capsule Budesonide [Pulmicort Respules] 0.5 mg IH Q12HRT #30 nebu buPROPion SR [Wellbutrin SR] 150 mg PO BID #30 tablet Buspirone HCl [busPIRone] 15 mg PO TID #30 tablet clonazePAM [KlonoPIN] 1 mg PO BID #30 tablet Diltiazem [Cardizem] 180 mg PO DAILY #30 tablet Duloxetine HCl [Cymbalta] 60 mg PO BID #30 capsule. Fluticasone/Salmeterol [Advair 250-50 Diskus] 1 each IH BID #30 blst.w.dev methylPREDNISolone [Medrol Dose Anthony] 4 mg PO QAM #1 pack Tiotropium [place] [Spiriva Respimat] 2 puff IH QDAY #30 mist.inhal traZODone [Desyrel] 200 mg PO HS PRN #30 tablet PRN Reason: Insomnia
== END 2017-07-24 12:30 | disposition home or self-care (01) | DRG 193 ==
LOC: ED 10:36 → 4A 14:59
PROVIDERS: ADMIT Internal Medicine; ATTEND Hospitalist
PROC: 5A09357 Assistance with Respiratory Ventilation, Less than 24 Consecutive Hours, Continuous Positive Airway Pressure (ICD-10-PCS; principal; 2017-07-17)
PROC: 4A033R1 Measurement of Arterial Saturation, Peripheral, Percutaneous Approach (ICD-10-PCS; 2017-07-17)
PROC: 5A2204Z Restoration of Cardiac Rhythm, Single (ICD-10-PCS; 2017-07-20)
DX: J18.9 Pneumonia, unspecified organism (principal); J96.01 Acute respiratory failure with hypoxia; G93.41 Metabolic encephalopathy; J96.02 Acute respiratory failure with hypercapnia; I48.92 Unspecified atrial flutter; J44.1 Chronic obstructive pulmonary disease with (acute) exacerbation; J44.0 Chronic obstructive pulmonary disease with (acute) lower respiratory infection; I27.20 Pulmonary hypertension, unspecified; J44.9 Chronic obstructive pulmonary disease, unspecified; F41.1 Generalized anxiety disorder; F32.9 Major depressive disorder, single episode, unspecified; K58.9 Irritable bowel syndrome, unspecified; I48.91 Unspecified atrial fibrillation; J20.9 Acute bronchitis, unspecified; D72.829 Elevated white blood cell count, unspecified; E11.9 Type 2 diabetes mellitus without complications; K21.9 Gastro-esophageal reflux disease without esophagitis; M19.90 Unspecified osteoarthritis, unspecified site; M62.838 Other muscle spasm; G47.30 Sleep apnea, unspecified; Z85.3 Personal history of malignant neoplasm of breast; Z79.899 Other long term (current) drug therapy; Z82.49 Family history of ischemic heart disease and other diseases of the circulatory system; Z90.13 Acquired absence of bilateral breasts and nipples
CPT/HCPCS: 36415; 71045; 71275; 80048; 80053; 80061; 82140; 82550; 82553; 82803; 82962; 83735; 84439; 84443; 84481; 84484; 85007; 85025; 85027; 85379; 87040; 92960; 93005; 93010; 93306; 94640; 94644; 94760; 96361; 96365; 96366; 96374; 96375; J0282; J0456; J0696; J1160; J1815; J1956; J2543; J2920; J2930; J3370; J7030; J7050; J7060; Q9967

== ENCOUNTER 2018-07-04 12:09 | Inpatient (IN) | payer MEDICAID ==
[2018-07-04] MEDS ORDERED: AMIDATE IV ONE ×2 (12:23→16:00)
[2018-07-04] MEDS ORDERED: QUELICIN IV ONE (12:24)
--- NOTE | 2018-07-04 12:33 | Emergency Department Report ---
ED Shortness of Breath HPI - General Stated Complaint: POST CARDIAC ARREST Time Seen by Provider: 07/04/18 12:26 Source: EMS Mode of arrival: Stretcher Limitations: Altered Mental Status - History of Present Illness Initial Comments: 61-year-old female with history of COPD presents to ED via EMS for difficulty breathing. Patient presented to [facility] outpatient facility in respiratory distress, cyanotic, with report of O2 sats in the 40s. Patient was given etomidate and succinylcholine at [facility] in intubated by [facility] physicians prior to EMS arrival. Patient was also given Narcan, she reportedly has a history of opiate abuse. EMS states they were called out for cardiac arrest, however when they arrived CPR was not in progress. Reports patient had a pulse. EMS states patient pulled out ET tube while en route to hospital. Upon arrival to ED, patient is obtunded, moving extremities, not responsive. Decision made to intubate the patient. MD Complaint: shortness of breath -: unknown Known History Of: COPD, congestive heart failure - Related Data Home Oxygen Amount: 4 Liters Home Medications Medication Instructions Recorded Confirmed Last Taken clonazePAM [KlonoPIN] 1 mg PO HS 07/17/17 05/29/18 07/16/17 AtorvaSTATin [Lipitor] 40 mg PO QHS 04/21/18 05/29/18 Unknown Clopidogrel [Plavix] 75 mg PO QDAY 04/21/18 05/29/18 Unknown Furosemide [Lasix TAB] 20 mg PO QDAY 04/21/18 05/29/18 Unknown Gabapentin [Neurontin] 300 mg PO BID 04/21/18 05/29/18 Unknown Metformin HCl [Metformin HCl ER] 1,000 mg PO BID 04/21/18 05/29/18 Unknown Potassium Chloride [K-Tab ER] 10 meq PO DAILY 04/21/18 05/29/18 Unknown dilTIAZem [Cardizem] 120 mg PO DAILY 04/21/18 05/29/18 Unknown predniSONE [Prednisone] 4.5 mg PO DAILY 04/21/18 05/29/18 Unknown Previous Rx's Medication Instructions Recorded Last Taken Type Buspirone HCl [busPIRone] 15 mg PO TID #30 tablet 07/20/17 Unknown Rx Duloxetine HCl [Cymbalta] 60 mg PO BID #30 capsule. 07/20/17 1 Day Ago Rx ~05/28/18 clonazePAM [KlonoPIN] 1 mg PO BID #30 tablet 07/20/17 Unknown Rx traZODone [Desyrel] 200 mg PO HS PRN #30 tablet 07/20/17 2 Days Ago Rx ~05/27/18 Fluticasone/Salmeterol [Advair 1 each IH DAILY #1 blst.w.dev 05/29/18 Unknown Rx 250-50 Diskus] Nystatin [Nystatin SUSP] 10 ml PO TID 10 Days #1 ml 05/29/18 Unknown Rx Prednisone [predniSONE 10 mg 10 mg PO .TAPER #1 tab.ds.pk 05/29/18 Unknown Rx (6-Day Pack, 21 Tabs)] Tiotropium [place] [Spiriva 2 puff IH QDAY #30 mist.inhal 05/29/18 Unknown Rx Respimat] Tiotropium [Spiriva] 18 mcg IH QDAY #1 cap 05/29/18 Unknown Rx Allergies Allergy/AdvReac Type Severity Reaction Status Date / Time Iodine and Iodide Containing Allergy Itching Verified 05/31/16 01:12 Produc ED Review of Systems ROS: Stated complaint: POST CARDIAC ARREST Other details as noted in HPI Comment: Unobtainable due to pts medical conditions (altered mental status) Respiratory: shortness of breath ED Past Medical Hx - Past Medical History Hx Hypertension: No Hx CVA: No Hx Heart Attack/AMI: No Hx Congestive Heart Failure: No Hx Diabetes: Yes Hx Deep Vein Thrombosis: No Hx Pulmonary Embolism: No Hx GERD: Yes Hx Liver Disease: No Hx Renal Disease: No Hx Sickle Cell Disease: No Hx Arthritis: Yes Hx Headaches / Migraines: No Hx Seizures: No Hx Kidney Stones: No Hx Psychiatric Treatment: Yes (depression) Hx Asthma: Yes Hx COPD: Yes Hx Tuberculosis: No Hx Dementia: No Hx HIV: No Additional medical history: ibs, diverticulosis, - Surgical History Hx Coronary Stent: No Hx Open Heart Surgery: No Hx Pacemaker: No Hx Internal Defibrillator: No Hx Cholecystectomy: No Hx Appendectomy: No Hx Breast Surgery: Yes Additional Surgical History: spinal surgery breast cancer. c-sect x3 - Social History Smoking Status: Smoker, Current Status Unknown - Medications Home Medications: Home Medications Medication Instructions Recorded Confirmed Last Taken Type clonazePAM [KlonoPIN] 1 mg PO HS 07/17/17 05/29/18 07/16/17 History Buspirone HCl [busPIRone] 15 mg PO TID #30 tablet 07/20/17 05/29/18 Unknown Rx Duloxetine HCl [Cymbalta] 60 mg PO BID #30 capsule. 07/20/17 05/29/18 1 Day Ago Rx ~05/28/18 clonazePAM [KlonoPIN] 1 mg PO BID #30 tablet 07/20/17 05/29/18 Unknown Rx traZODone [Desyrel] 200 mg PO HS PRN #30 tablet 07/20/17 05/29/18 2 Days Ago Rx ~05/27/18 AtorvaSTATin [Lipitor] 40 mg PO QHS 04/21/18 05/29/18 Unknown History Clopidogrel [Plavix] 75 mg PO QDAY 04/21/18 05/29/18 Unknown History Furosemide [Lasix TAB] 20 mg PO QDAY 04/21/18 05/29/18 Unknown History Gabapentin [Neurontin] 300 mg PO BID 04/21/18 05/29/18 Unknown History Metformin HCl [Metformin HCl ER] 1,000 mg PO BID 04/21/18 05/29/18 Unknown History Potassium Chloride [K-Tab ER] 10 meq PO DAILY 04/21/18 05/29/18 Unknown History dilTIAZem [Cardizem] 120 mg PO DAILY 04/21/18 05/29/18 Unknown History predniSONE [Prednisone] 4.5 mg PO DAILY 04/21/18 05/29/18 Unknown History Fluticasone/Salmeterol [Advair 1 each IH DAILY #1 blst.w.dev 05/29/18 Unknown Rx 250-50 Diskus] Nystatin [Nystatin SUSP] 10 ml PO TID 10 Days #1 ml 05/29/18 Unknown Rx Prednisone [predniSONE 10 mg 10 mg PO .TAPER #1 tab.ds.pk 05/29/18 Unknown Rx (6-Day Pack, 21 Tabs)] Tiotropium [place] [Spiriva 2 puff IH QDAY #30 mist.inhal 05/29/18 Unknown Rx Respimat] Tiotropium [Spiriva] 18 mcg IH QDAY #1 cap 05/29/18 Unknown Rx ED Physical Exam - General General appearance: obtunded - Head Head exam: Present: atraumatic, normocephalic - Eye Eye exam: Present: normal appearance - ENT ENT exam: Present: mucous membranes dry - Neck Neck exam: Present: normal inspection - Respiratory Respiratory exam: Present: respiratory distress, rales - Cardiovascular Cardiovascular Exam: Present: regular rate, normal rhythm - GI/Abdominal GI/Abdominal exam: Present: soft, distended (moderately) - Extremities Exam Extremities exam: Present: normal inspection - Psychiatric Psychiatric exam: Present: normal affect, normal mood - Skin Skin exam: Present: warm, dry, intact, normal color ED Course Vital Signs 07/04/18 07/04/18 07/04/18 12:30 12:46 13:00 Temperature Pulse Rate 90 91 H 86 Respiratory 18 14 12 Rate Blood Pressure 104/55 105/73 90/42 O2 Sat by Pulse 100 99 100 Oximetry 07/04/18 07/04/18 07/04/18 14:15 14:30 14:46 Temperature Pulse Rate 80 83 74 Respiratory 16 18 18 Rate Blood Pressure 101/73 104/69 104/73 O2 Sat by Pulse 100 100 100 Oximetry 07/04/18 07/04/18 07/04/18 15:00 15:16 15:18 Temperature 98.4 F Pulse Rate 80 82 Respiratory 18 19 Rate Blood Pressure 99/70 99/70 O2 Sat by Pulse 99 100 Oximetry 07/04/18 07/04/18 07/04/18 15:46 16:00 16:30 Temperature Pulse Rate 79 77 81 Respiratory 17 18 Rate Blood Pressure 103/69 101/72 101/72 O2 Sat by Pulse 100 100 100 Oximetry 07/04/18 16:46 Temperature Pulse Rate 83 Respiratory 18 Rate Blood Pressure 101/72 O2 Sat by Pulse 100 Oximetry - Consultations Consultation #1: 07/04/18 13:21 Spoke w/ [facility] physician, Dr Moon. States pt to remain at [facility] - Central Line Placement Right Femoral Consent Obtained: emergent situation Time Out Performed: Yes Patient Placed on Monitor/Pulse Ox: Yes MD Prep: mask, gown, gloves Central Line Prep: Chlorhexidine scrub Local Anesthesia Used: Lidocaine 1% Amount of Anesthesia Used (mls): 3 Ultrasound Used for Placement: No Central Line Lumen Inserted: triple Bloods Obtained for Lab: No Central Line Position: good blood return, all ports aspirated, flus, sutured in place with nyl Dressing Applied: Tegaderm Patient Tolerated Procedure: well Complications: none - Intubation Time Out Performed: Yes Sedative: Etomidate Mg Given: 30 Paralytic: Succinylcholine Mg Given: 150 Laryngoscope: Selina Size: 4 ET Tube Size: 7.5 Tube Placement Confirmation: visualized tube passing t, equal breath sounds bilat, no breath sounds over epi, confirmation by capnometr Patient Tolerated Procedure: well Intubation Complications: none ED Medical Decision Making - Lab Data Result diagrams: 07/04/18 12:38 07/04/18 12:38 - EKG Data -: EKG Interpreted by Me EKG shows normal: sinus rhythm, axis, intervals, QRS complexes, ST-T waves Rate: normal - EKG Data Interpretation: no acute changes - Radiology Data Radiology results: report reviewed, image reviewed - Medical Decision Making 57-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 Patient presented from outpatient at [facility] to this ED. Patient was intubated at the [facility], however pulled out her ET tube en route to ED. Upon arrival, patient was reintubated. Patient also became hypotensive, so central line was placed. IV fluids were administered. WBCs elevated, lactic acid elevated, so blood cultures were obtained and Levaquin given. Blood pressure improved w/ IV fluids. No pressors needed at this time. Will admit to Dr Hall, hospitalist. - Differential Diagnosis COPD, CHF, pneumonia Critical Care Time: Yes Critical care time in (mins) excluding proc time.: 35 Critical care attestation.: If time is entered above; I have spent that time in minutes in the direct care of this critically ill patient, excluding procedure time. Critical Care Time: 35 minutes ED Disposition Clinical Impression: Respiratory failure, Sepsis Disposition: [id number] OP ADMIT IP TO THIS HOSP Is pt being admited?: Yes Condition: Critical Time of Disposition: 14:44
[2018-07-04] MEDS ORDERED: DIPRIVAN 10 MG/ML 1,000 MG/100 ML BOTTLE IV ONE ×2 (12:57→21:30)
[2018-07-04 13:00] LABS: Basophils # (Auto) 0.1 K/mm3 (0.0-0.1); Basophils % (Auto) 0.5 % (0.0-1.8); Eosinophils % (Auto) 0.1 % (0.0-4.3); Hematocrit 44.2 % (30.3-42.9); Hemoglobin 14.9 gm/dl (10.1-14.3); Lymphocytes # (Auto) 2.4 K/mm3 (1.2-5.4); Lymphocytes % (Auto) 15.8 % (13.4-35.0); Mean Corpuscular HGB Conc 34 % (30-34); Mean Corpuscular Volume 103 fl (79-97); Monocytes # (Auto) 1.3 K/mm3 (0.0-0.8); Monocytes % (Auto) 8.5 % (0.0-7.3); Platelet Count 156 K/mm3 (140-440); Red Blood Count 4.29 M/mm3 (3.65-5.03); Red Cell Distribution Width 15.6 % (13.2-15.2)
[2018-07-04] MEDS ORDERED: NACL 0.9% 1000 ML 1,000 ML ONE (13:00)
[2018-07-04] MEDS ORDERED: NACL 0.9% 1000 ML 1,000 ML IV ONE (13:05)
[2018-07-04] MEDS ORDERED: LEVAQUIN 750MG/150ML 750 MG/150 ML BAG IV ONE (13:06)
--- NOTE | 2018-07-04 13:27 | XRay Report ---
AP CHEST: HISTORY: Shortness of breath, endotracheal tube placement Compared to 05/28/18. The endotracheal tube is in good position terminating 4.3 cm from the vigril. Cardiac defibrillator pads are in place. Heart size and pulmonary vascularity are within normal limits. The lungs are clear. No pleural effusion or pneumothorax is identified. IMPRESSION: Adequate endotracheal tube placement. Unremarkable AP chest.
[2018-07-04] MEDS ORDERED: NACL 0.9% 1000 ML IV ONE (13:29)
[2018-07-04 13:45] LABS: Bilirubin,Urine NEG (Negative); Blood,Urine MOD (Negative); Color,Urine Yellow (Yellow); Mucus,Urine FEW /HPF; Urobilinogen,Urine < 2.0 mg/dL (<2.0)
[2018-07-04 13:51] LABS: INR 1.09 (0.87-1.13)
[2018-07-04 14:30] LABS: BUN/Creatinine Ratio 24; Blood Urea Nitrogen 17 mg/dL (7-17); Calcium 8.4 mg/dL (8.4-10.2); Hemolysis Index 80
[2018-07-04] MEDS ORDERED: SODIUM CHLORIDE FLUSH SYRINGE 10 ML IV PRN (14:52)
[2018-07-04] MEDS ORDERED: PROVENTIL IH PRN (14:52)
--- NOTE | 2018-07-04 14:58 | History and Physical Report ---
History of Present Illness Chief complaint: Unresponsive History of present illness: 57 YO Female with COPD, Chronic Respiratory Failure on 4L Home Oxygen, DM, Depression, Opiate Dependence, Nicotine Dependence presents to ED for evaluation. Pt was seen and evaluated at a [facility] and was found to have Acute Hypoxemic Respiratory Failure and was subsequently intubated and placed on vent support . Pt also experienced cardiac arrest and was treated IAW ACLS protocol with return of perfusing rhythm as per [facility] staff. EMS was notified, and upon arrival patient was found to be in dis tress, but with perfusing cardiac rhythm. Pt transported to [facility] for further care and evaluation. Pt self extubated en route to [facility]. Pt seen and evaluated in ED and subsequently reintubated and placed on vent support. Pt found to have Acute Respiratory Failure, Sepsis, and Acidosis, and New onset CHF. Pt admitted to ICU. Discussed care plan with daughter, who reports that patient is DNR and does not wish to be intubated. Pt daughter requests extubation and comfort care measures. Awaiting family to sign DNR/AND declaration Past History Past Medical History: COPD, other (Respiratory Failure) Past Surgical History: , mastectomy, Other (spine surgery') Social history: smoking, prescription drug abuse Family history: no significant family history Medications and Allergies Allergies Allergy/AdvReac Type Severity Reaction Status Date / Time Iodine and Iodide Containing Allergy Itching Verified 05/31/16 01:12 Produc Home Medications Medication Instructions Recorded Confirmed Last Taken Type Aspirin [Aspir-Low] 81 mg PO QDAY 07/04/18 07/04/18 Unknown History AtorvaSTATin [Lipitor] 40 mg PO QHS 07/04/18 07/04/18 Unknown History Buspirone HCl [busPIRone] 15 mg PO TID 07/04/18 07/04/18 Unknown History Diltiazem HCl [Diltiazem ER] 240 mg PO QDAY 07/04/18 07/04/18 Unknown History Duloxetine HCl [DULoxetine] 60 mg PO BID 07/04/18 07/04/18 Unknown History Furosemide [Lasix] 20 mg PO QDAY 07/04/18 07/04/18 Unknown History Melatonin 3 mg PO QHS 07/04/18 07/04/18 Unknown History Metformin HCl [Fortamet ER] 1,000 mg PO BID 07/04/18 07/04/18 Unknown History Potassium Chloride [K-Tab ER] 10 meq PO QDAY 07/04/18 07/04/18 Unknown History Sennosides/Docusate Sodium 1 each PO QDAY 07/04/18 07/04/18 Unknown History [Senokot-S Tablet] clonazePAM [Clonazepam] 1 mg PO QAM 07/04/18 07/04/18 Unknown History clonazePAM [Clonazepam] 1 mg PO QHS 07/04/18 07/04/18 Unknown History predniSONE [Prednisone] 7.5 mg PO QDAY 07/04/18 07/04/18 Unknown History traZODone [Desyrel] 100 mg PO QHS 07/04/18 07/04/18 Unknown History Active Meds: Active Medications Albuterol (Proventil) 2.5 mg IH Q3HRT PRN PRN Reason: Shortness Of Breath Levofloxacin/Dextrose (Levaquin 750mg/150ml) 750 mg in 150 mls @ 100 mls/hr IV Q24HR LAYO; Protocol Sodium Chloride (Sodium Chloride Flush Syringe 10 Ml) 10 ml IV BID LAYO Sodium Chloride (Sodium Chloride Flush Syringe 10 Ml) 10 ml IV PRN PRN PRN Reason: LINE FLUSH Review of Systems ROS unobtainable: due to endotracheal tube Exam - Constitutional Vitals: Temp Pulse Resp BP Pulse Ox 88/58 100 07/04/18 12:30 07/04/18 12:30 General appearance: Present: severe distress - EENT Eyes: Present: miosis - Neck Neck: Present: supple, normal ROM - Respiratory Respiratory effort: labored Respiratory: bilateral: diminished, rhonchi - Cardiovascular Heart Sounds: Present: S1 & S2. Absent: rub, click - Extremities Extremities: no ischemia Extremity abnormal: edema Peripheral Pulses: abnormal (capillary refill, greater than 3.5 seconds) - Abdominal General gastrointestinal: Present: soft, non-tender, non-distended, normal bowel sounds Female genitourinary: Present: normal - Integumentary Integumentary: Present: clear, dry, clammy, decreased turgor - Musculoskeletal Musculoskeletal: generalized weakness - Psychiatric Psychiatric: no appropriate mood/affect, no intact judgment & insight, no memory intact - Neurologic Neurologic: moves all extremities, no gait normal Results - Labs CBC & Chem 7: 07/04/18 12:38 07/04/18 12:38 Labs: Abnormal lab results 07/04/18 07/04/18 07/04/18 Range/Units 12:38 12:38 13:13 WBC 15.4 H (4.5-11.0) K/mm3 Hgb 14.9 H (10.1-14.3) gm/dl Hct 44.2 H (30.3-42.9) % MCV 103 H (79-97) fl MCH 35 H (28-32) pg RDW 15.6 H (13.2-15.2) % [place] % (Auto) 8.5 H (0.0-7.3) % [place] # 1.3 H (0.0-0.8) K/mm3 Seg Neutrophils % 75.1 H (40.0-70.0) % Seg Neutrophils # 11.5 H (1.8-7.7) K/mm3 POC ABG pCO2 (35-45) POC ABG pO2 (80-105) Chloride 95.3 L (98-107) mmol/L Glucose 187 H (65-100) mg/dL Lactic Acid 3.10 H* (0.7-2.0) mmol/L NT-Pro-B Natriuret Pep 1969 H (0-900) pg/mL 07/04/18 Range/Units 14:11 WBC (4.5-11.0) K/mm3 Hgb (10.1-14.3) gm/dl Hct (30.3-42.9) % MCV (79-97) fl MCH (28-32) pg RDW (13.2-15.2) % [place] % (Auto) (0.0-7.3) % [place] # (0.0-0.8) K/mm3 Seg Neutrophils % (40.0-70.0) % Seg Neutrophils # (1.8-7.7) K/mm3 POC ABG pCO2 61.5 H (35-45) POC ABG pO2 479 H (80-105) Chloride (98-107) mmol/L Glucose (65-100) mg/dL Lactic Acid (0.7-2.0) mmol/L NT-Pro-B Natriuret Pep (0-900) pg/mL Assessment and Plan - Patient Problems (1) Sepsis Current Visit: Yes Status: Acute Qualifiers: Sepsis type: sepsis due to unspecified organism Qualified Code(s): A41.9 - Sepsis, unspecified organism Plan to address problem: IV antibiotic therapy, CBC, CMP, IV antibiotic therapy, blood cultures, chest x ray, urinalysis, monitor uop q shift, serial lactic acid The high probability of a clinically significant, sudden or life threatening deterioration of the [respiratory, renal, ] system(s) required my full and direc t attention, intervention and personal management. The aggregate critical care time was [65] minutes. This time is in addition to time spent performing reported procedures but includes the following: [x] Data Review and interpretation [x] Patient assessment and monitoring of vital signs [x] Documentation [x] Medication orders and management (2) CHF (congestive heart failure) Current Visit: Yes Status: Acute Qualifiers: Heart failure chronicity: acute Plan to address problem: Admit to ICU, supportive care, Pt found to have poor prognosis. Pt family request comfort care measures. (3) Acute on chronic respiratory failure with hypercapnia Current Visit: No Status: Acute Plan to address problem: Pt intubated, sedated, on vent support. Pt family request extubation, and initiation of comfort care measures. (4) Acidosis Current Visit: Yes Status: Acute Plan to address problem: IVF resuscitation therapy, monitor uop q shift, serial lactic acid (5) DVT prophylaxis Current Visit: No Status: Acute Plan to address problem: SCD to BLE while in bed.
[2018-07-04] MEDS ORDERED: QUELICIN ONE (16:00)
--- NOTE | 2018-07-04 16:08 | Consultation ---
History of Present Illness Consult date: 07/04/18 Requesting physician: JIMENA BASS Reason for consult: COPD, other (Acute on Chronic hypercapnic Resp Failure; Acute COPD exacerbation) History of present illness: PULMONARY/CCM CONSULT NOTE (Full dictation # [id number]) Please see dictated notes for full details Medications and Allergies Allergies Allergy/AdvReac Type Severity Reaction Status Date / Time Iodine and Iodide Containing Allergy Itching Verified 05/31/16 01:12 Produc Home Medications Medication Instructions Recorded Confirmed Last Taken Type Aspirin [Aspir-Low] 81 mg PO QDAY 07/04/18 07/04/18 Unknown History AtorvaSTATin [Lipitor] 40 mg PO QHS 07/04/18 07/04/18 Unknown History Buspirone HCl [busPIRone] 15 mg PO TID 07/04/18 07/04/18 Unknown History Diltiazem HCl [Diltiazem ER] 240 mg PO QDAY 07/04/18 07/04/18 Unknown History Duloxetine HCl [DULoxetine] 60 mg PO BID 07/04/18 07/04/18 Unknown History Furosemide [Lasix] 20 mg PO QDAY 07/04/18 07/04/18 Unknown History Melatonin 3 mg PO QHS 07/04/18 07/04/18 Unknown History Metformin HCl [Fortamet ER] 1,000 mg PO BID 07/04/18 07/04/18 Unknown History Potassium Chloride [K-Tab ER] 10 meq PO QDAY 07/04/18 07/04/18 Unknown History Sennosides/Docusate Sodium 1 each PO QDAY 07/04/18 07/04/18 Unknown History [Senokot-S Tablet] clonazePAM [Clonazepam] 1 mg PO QAM 07/04/18 07/04/18 Unknown History clonazePAM [Clonazepam] 1 mg PO QHS 07/04/18 07/04/18 Unknown History predniSONE [Prednisone] 7.5 mg PO QDAY 07/04/18 07/04/18 Unknown History traZODone [Desyrel] 100 mg PO QHS 07/04/18 07/04/18 Unknown History Active Meds: Active Medications Albuterol (Proventil) 2.5 mg IH Q3HRT PRN PRN Reason: Shortness Of Breath Levofloxacin/Dextrose (Levaquin 750mg/150ml) 750 mg in 150 mls @ 100 mls/hr IV Q24HR LAYO; Protocol Sodium Chloride (Sodium Chloride Flush Syringe 10 Ml) 10 ml IV BID LAYO Sodium Chloride (Sodium Chloride Flush Syringe 10 Ml) 10 ml IV PRN PRN PRN Reason: LINE FLUSH Physical Examination Vital signs: Vital Signs Pulse Resp BP Pulse Ox 90 18 88/58 100 07/04/18 12:30 07/04/18 12:30 07/04/18 12:30 07/04/18 12:30 Results - Laboratory Findings CBC and BMP: 07/04/18 12:38 07/04/18 12:38 ABG POC ABG pH 7.395 (7.35-7.45) 07/04/18 14:11 POC ABG pCO2 61.5 (35-45) H 07/04/18 14:11 POC ABG pO2 479 (80-105) H 07/04/18 14:11 POC ABG HCO3 37.7 07/04/18 14:11 POC ABG Total CO2 40 07/04/18 14:11 POC ABG O2 Sat 100 07/04/18 14:11 PT/INR, D-dimer PT 14.5 Sec. (12.2-14.9) 07/04/18 12:38 INR 1.09 (0.87-1.13) 07/04/18 12:38 Abnormal lab findings: Abnormal Labs 07/04/18 07/04/18 07/04/18 12:38 12:38 13:13 WBC 15.4 H Hgb 14.9 H Hct 44.2 H MCV 103 H MCH 35 H RDW 15.6 H [place] % (Auto) 8.5 H [place] # 1.3 H Seg Neutrophils % 75.1 H Seg Neutrophils # 11.5 H POC ABG pCO2 POC ABG pO2 Chloride 95.3 L Glucose 187 H Lactic Acid 3.10 H* NT-Pro-B Natriuret Pep 1969 H 07/04/18 14:11 WBC Hgb Hct MCV MCH RDW [place] % (Auto) [place] # Seg Neutrophils % Seg Neutrophils # POC ABG pCO2 61.5 H POC ABG pO2 479 H Chloride Glucose Lactic Acid NT-Pro-B Natriuret Pep
[2018-07-04] MEDS: DIPRIVAN 10 MG/ML 1,000 MG/100 ML BOTTLE IV SCH (19:00)
[2018-07-04] MEDS: SODIUM CHLORIDE FLUSH SYRINGE 10 ML IV SCH (21:38)
[2018-07-04] MEDS ORDERED: LOPRESSOR IV ONE (22:58)
[2018-07-04] MEDS ORDERED: CARDIZEM ONE (23:03)
[2018-07-04] MEDS ORDERED: CARDIZEM IV ONE ×2 (23:09→23:33)
--- NOTE | 2018-07-04 23:14 | Event Note ---
Date: 07/04/18 Called to see patient for a heart rate of 200 Rhythm on the monitor is A. fib IV Lopressor was given with transient decrease in heart rate Patient was then given Cardizem 10 mg which brought her heart rate down to 110s Her rate went back up, she was then given another 10 mg IV Cardizem and started on a Cardizem drip The high probability of a clinically significant, sudden or life threatening deterioration of the [CV, GI, respiratory] system(s) required my full and direct attention, intervention and personal management. The aggregate critical care time was [35 ] minutes. This time is in addition to time spent performing reported procedures but includes the following: x] Data Review and interpretation [x] Patient assessment and monitoring of vital signs [x] Documentation [x] Medication orders and management
[2018-07-04] MEDS ORDERED: CARDIZEM/D5W 100MG/100ML 100 MG/100 ML BAG IV SCH (23:45)
[2018-07-05] MEDS ORDERED: ARTIFICIAL TEARS OPHTH OINT OU PRN (04:10)
[2018-07-05] MEDS ORDERED: VASELINE LIP THERAPY TP PRN (04:10)
[2018-07-05] MEDS ORDERED: LOPRESSOR IV ONE (04:19)
[2018-07-05] MEDS ORDERED: DIPRIVAN 10 MG/ML 1,000 MG/100 ML BOTTLE IV ONE ×2 (04:59→09:24)
[2018-07-05] MEDS: DIPRIVAN 10 MG/ML 1,000 MG/100 ML BOTTLE IV SCH (06:42)
--- NOTE | 2018-07-05 11:54 | Consultation ---
<SAMARIA BAPTISTE - Last Filed: 07/05/18 12:15> History of Present Illness Consult date: 07/05/18 Requesting physician: NANCY JONES Consult reason: atrial fibrillation History of present illness: The pt is a 57 YO Female with COPD, Chronic Respiratory Failure on 3-4L Home Oxygen, paroxysmal atrial fib/flutter (s/p DCCV here 06/2017), HTN, HLP, DM, CAD s/p reported PCI last year at [facility], tobacco use. She is followed by [facility]. She is intubated and sedated on evaluation and thus HPI obtained per her daughters at bedside. Pt was recently hospitalized over for respiratory failure. She was noted to be very lethargic and SOB yesterday and was evaluated at a [facility] center and was found to have Acute Respiratory Failure and was subsequently intubated and placed on vent support. Pt also noted to have AFib with RVR and reported brief ? cardiac arrest and was treated per ACLS protocol with return of perfusing rhythm as per [facility] staff. EMS was notified, and upon arrival patient was found to be in distress, but with perfusing cardiac rhythm. Pt transported to [facility] for further care and evaluation. Pt self extubated en route to [facility]. Pt seen and evaluated in ED and subsequently reintubated and placed on vent support. On evaluation, pt is in NSR. Echo done 06/2017 showed EF 55-60%, mod pulm HTN with RVSP 51mmHg. Past History Past Medical History: CAD, COPD, diabetes, hypertension, hyperlipidemia, other (Respiratory Failure) Past Surgical History: , hysterectomy, mastectomy, Other (spine surgery') Social history: smoking, prescription drug abuse Family history: no significant family history Medications and Allergies Allergies Allergy/AdvReac Type Severity Reaction Status Date / Time Iodine and Iodide Containing Allergy Itching Verified 05/31/16 01:12 Produc Home Medications Medication Instructions Recorded Confirmed Last Taken Type Aspirin [Aspir-Low] 81 mg PO QDAY 07/04/18 07/04/18 Unknown History AtorvaSTATin [Lipitor] 40 mg PO QHS 07/04/18 07/04/18 Unknown History Buspirone HCl [busPIRone] 15 mg PO TID 07/04/18 07/04/18 Unknown History Diltiazem HCl [Diltiazem ER] 240 mg PO QDAY 07/04/18 07/04/18 Unknown History Duloxetine HCl [DULoxetine] 60 mg PO BID 07/04/18 07/04/18 Unknown History Furosemide [Lasix] 20 mg PO QDAY 07/04/18 07/04/18 Unknown History Melatonin 3 mg PO QHS 07/04/18 07/04/18 Unknown History Metformin HCl [Fortamet ER] 1,000 mg PO BID 07/04/18 07/04/18 Unknown History Potassium Chloride [K-Tab ER] 10 meq PO QDAY 07/04/18 07/04/18 Unknown History Sennosides/Docusate Sodium 1 each PO QDAY 07/04/18 07/04/18 Unknown History [Senokot-S Tablet] clonazePAM [Clonazepam] 1 mg PO QAM 07/04/18 07/04/18 Unknown History clonazePAM [Clonazepam] 1 mg PO QHS 07/04/18 07/04/18 Unknown History predniSONE [Prednisone] 7.5 mg PO QDAY 07/04/18 07/04/18 Unknown History traZODone [Desyrel] 100 mg PO QHS 07/04/18 07/04/18 Unknown History Active Meds: Active Medications Albuterol (Proventil) 2.5 mg IH Q3HRT PRN PRN Reason: Shortness Of Breath Enoxaparin Sodium (Lovenox) 40 mg SUB-Q QDAY@1000 LAYO Famotidine (Pepcid) 20 mg IV BID LAYO Hydrophilic Ointment (Vaseline Lip Therapy) 1 applic TP Q2HR PRN PRN Reason: Dry Lips Levofloxacin/Dextrose (Levaquin 750mg/150ml) 750 mg in 150 mls @ 100 mls/hr IV Q24HR LAYO; Protocol Diltiazem HCl (Cardizem/D5w 100mg/100ml) 100 mg in 100 mls @ 5 mls/hr IV TITR LAYO; Protocol Last Titration: 07/05/18 01:59 Dose: 5 mg/hr, 5 mls/hr Documented by: Propofol (Diprivan 10 Mg/Ml) 1,000 mg in 100 mls @ 2.52 mls/hr IV TITR LAYO; Protocol Last Titration: 07/05/18 08:25 Dose: 50 mcg/kg/min, 25.2 mls/hr Documented by: Multi-Ingred Cream/Lotion/Oil/Oint (Artificial Tears Ophth Oint) 1 applic OU Q4HR PRN PRN Reason: Dry Eye(s) Sodium Chloride (Sodium Chloride Flush Syringe 10 Ml) 10 ml IV BID LAYO Last Admin: 07/04/18 21:38 Dose: 10 ml Documented by: Sodium Chloride (Sodium Chloride Flush Syringe 10 Ml) 10 ml IV PRN PRN PRN Reason: LINE FLUSH Review of Systems ROS unobtainable: due to endotracheal tube, due to mental status Physical Examination Vital Signs Pulse Resp BP Pulse Ox 90 18 88/58 100 07/04/18 12:30 07/04/18 12:30 07/04/18 12:30 07/04/18 12:30 General appearance: other (intubated, sedated) Cardiac: Positive: Reg Rate and Rhythm, S1/S2 Lungs: Positive: Decreased Breath Sounds, Oxygen, Ventilated Respirations Neuro: Positive: Other (intubated, sedated ) Abdomen: Negative: Tender Extremities: Absent: edema Results 07/04/18 12:38 07/04/18 12:38 Coagulation 07/04/18 Range/Units 12:38 PT 14.5 (12.2-14.9) Sec. INR 1.09 (0.87-1.13) APTT 29.0 (24.2-36.6) Sec. CBC 07/04/18 Range/Units 12:38 WBC 15.4 H (4.5-11.0) K/mm3 RBC 4.29 (3.65-5.03) M/mm3 Hgb 14.9 H (10.1-14.3) gm/dl Hct 44.2 H (30.3-42.9) % Plt Count 156 (140-440) K/mm3 Lymph # 2.4 (1.2-5.4) K/mm3 Long # 1.3 H (0.0-0.8) K/mm3 Eos # 0.0 (0.0-0.4) K/mm3 Baso # 0.1 (0.0-0.1) K/mm3 Comprehensive Metabolic Panel 07/04/18 Range/Units 12:38 Sodium 139 (137-145) mmol/L Potassium 5.0 (3.6-5.0) mmol/L Chloride 95.3 L (98-107) mmol/L Carbon Dioxide 25 (22-30) mmol/L BUN 17 (7-17) mg/dL Creatinine 0.7 (0.7-1.2) mg/dL Glucose 187 H (65-100) mg/dL Calcium 8.4 (8.4-10.2) mg/dL - Imaging and Cardiology Echo: report reviewed (06/2017 showed EF 55-60%, mod pulm HTN with RVSP 51mmHg. ) EKG: report reviewed, image reviewed EKG interpretations - Telemetry EKG Rhythm: Sinus Rhythm - EKG Supraventricular dysrhythmia: atrial fibrillation Assessment and Plan Overall guarded prognosis. At length discussion had with pt's daughters at bedside. Pt's daughters state that pt did not wish to be intubated. They also state that their mother would not want a trach if it were necessitated. They w ould like to continue with current supportive care at this time and if able to extubate, they will consider sending pt home on hospice. If unable to wean vent, they would consider extubation to hospice. Cont present cardiac management. Pt currently in NSR. F/u echo. Attempt to obtain medical records from [facility] - pt had reported PCI there last year. The patient has been seen in conjunction with Dr. Barclay who agrees with the assessment and plan of care. - Patient Problems (1) Acute on chronic respiratory failure Current Visit: Yes Status: Acute (2) COPD (chronic obstructive pulmonary disease) Current Visit: Yes Status: Chronic (3) Paroxysmal atrial fibrillation Current Visit: Yes Status: Chronic (4) Sepsis Current Visit: Yes Status: Suspected Qualifiers: Sepsis type: sepsis due to unspecified organism Qualified Code(s): A41.9 - Sepsis, unspecified organism (5) CAD (coronary artery disease) Current Visit: Yes Status: Chronic (6) Stented coronary artery Current Visit: Yes Status: Chronic (7) HTN (hypertension) Current Visit: Yes Status: Chronic (8) Type 2 diabetes mellitus Current Visit: Yes Status: Chronic Qualifiers: Diabetes mellitus chcf insulin use: without termite treater use Diabetes mellitus complication status: without complication Qualified Code(s): E11.9 - Type 2 diabetes mellitus without complications (9) Hyperlipidemia Current Visit: Yes Status: Chronic <BLANCA BARCLAY R - Last Filed: 07/05/18 12:22> Medications and Allergies Active Meds: Active Medications Albuterol (Proventil) 2.5 mg IH Q3HRT PRN PRN Reason: Shortness Of Breath Enoxaparin Sodium (Lovenox) 40 mg SUB-Q QDAY@1000 LAYO Famotidine (Pepcid) 20 mg IV BID [facility] Hydrophilic Ointment (Vaseline Lip Therapy) 1 applic TP Q2HR PRN PRN Reason: Dry Lips Levofloxacin/Dextrose (Levaquin 750mg/150ml) 750 mg in 150 mls @ 100 mls/hr IV Q24HR LAYO; Protocol Diltiazem HCl (Cardizem/D5w 100mg/100ml) 100 mg in 100 mls @ 5 mls/hr IV TITR LAYO; Protocol Last Titration: 07/05/18 09:30 Dose: 0 mg/hr, 0 mls/hr Documented by: Propofol (Diprivan 10 Mg/Ml) 1,000 mg in 100 mls @ 2.52 mls/hr IV TITR LAYO; Protocol Last Titration: 07/05/18 09:45 Dose: 40 mcg/kg/min, 20.16 mls/hr Documented by: Multi-Ingred Cream/Lotion/Oil/Oint (Artificial Tears Ophth Oint) 1 applic OU Q4HR PRN PRN Reason: Dry Eye(s) Sodium Chloride (Sodium Chloride Flush Syringe 10 Ml) 10 ml IV BID [facility] Last Admin: 07/04/18 21:38 Dose: 10 ml Documented by: Sodium Chloride (Sodium Chloride Flush Syringe 10 Ml) 10 ml IV PRN PRN PRN Reason: LINE FLUSH Physical Examination Vital Signs Pulse Resp BP Pulse Ox 90 18 88/58 100 07/04/18 12:30 07/04/18 12:30 07/04/18 12:30 07/04/18 12:30 Results 07/04/18 12:38 07/04/18 12:38 Coagulation 07/04/18 Range/Units 12:38 PT 14.5 (12.2-14.9) Sec. INR 1.09 (0.87-1.13) APTT 29.0 (24.2-36.6) Sec. CBC 07/04/18 Range/Units 12:38 WBC 15.4 H (4.5-11.0) K/mm3 RBC 4.29 (3.65-5.03) M/mm3 Hgb 14.9 H (10.1-14.3) gm/dl Hct 44.2 H (30.3-42.9) % Plt Count 156 (140-440) K/mm3 Lymph # 2.4 (1.2-5.4) K/mm3 Long # 1.3 H (0.0-0.8) K/mm3 Eos # 0.0 (0.0-0.4) K/mm3 Baso # 0.1 (0.0-0.1) K/mm3 Comprehensive Metabolic Panel 07/04/18 Range/Units 12:38 Sodium 139 (137-145) mmol/L Potassium 5.0 (3.6-5.0) mmol/L Chloride 95.3 L (98-107) mmol/L Carbon Dioxide 25 (22-30) mmol/L BUN 17 (7-17) mg/dL Creatinine 0.7 (0.7-1.2) mg/dL Glucose 187 H (65-100) mg/dL Calcium 8.4 (8.4-10.2) mg/dL Assessment and Plan afib is brief and respiratory stress induced, hold off OAC, given possible hospice care , discuss with pt's daughters in detail about plan
[2018-07-05] MEDS: LOVENOX SUB-Q SCH (13:39)
[2018-07-05] MEDS: LEVAQUIN 750MG/150ML 750 MG/150 ML BAG IV SCH (13:39)
[2018-07-05] MEDS: PEPCID IV SCH ×2 (13:39→23:39)
[2018-07-05] MEDS: SODIUM CHLORIDE FLUSH SYRINGE 10 ML IV SCH ×2 (13:40→23:39)
[2018-07-05 13:46] LABS: Basophils % (Auto) 0.1 % (0.0-1.8); Hematocrit 38.3 % (30.3-42.9); Hemoglobin 12.9 gm/dl (10.1-14.3); Lymphocytes # (Auto) 0.9 K/mm3 (1.2-5.4); Lymphocytes % (Auto) 9.1 % (13.4-35.0); Mean Corpuscular HGB Conc 34 % (30-34); Mean Corpuscular Volume 102 fl (79-97); Monocytes # (Auto) 0.7 K/mm3 (0.0-0.8); Monocytes % (Auto) 7.3 % (0.0-7.3); Red Blood Count 3.74 M/mm3 (3.65-5.03); Red Cell Distribution Width 15.4 % (13.2-15.2)
[2018-07-05 13:47] LABS: Platelet Count 85 K/mm3 (140-440)
--- NOTE | 2018-07-05 14:17 | Progress Note ---
Assessment and Plan Acute on Chronic Hypercapnic Respiratory Failure Acute COPD exacerbation Cardiac Arrest with ROSC Chronic Pain Syndrome Substance Abuse Obesity - reduce set rate to 12 cmH20 - begin daily SBT's after 1-2 hours if tolerates change - begin daily SAT's - VAP bundle addressed - titrate sedatives for RASS 0 to -1 - begin enteral nutrition as tolerated if not extubated post SBT - continue supplemental oxygen to keep sats > 90% - aspiration precautions - continue bronchodilators with pulmonary hygiene per RT - continue VTE & stress ulcer prophylaxis - continue empiric antibiotics to complete course - continue Mobility protocol for pressure ulcer prevention - continue other care per attending / other consultants .... re-evaluate in am & prn FULL CODE STATUS CONDITION: CRITICAL The high probability of a clinically significant, sudden or life-threatening deterioration of the [respiratory, cardiovascular] system(s) required my full and direct attention, intervention and personal management. The aggregate critical care time was [32] minutes without overlap. Time includes spent on; [x] Data Review and interpretation [x] Patient assessment and monitoring of vital signs [x] Documentation [x] Medication orders and management Subjective Date of service: 07/05/18 Principal diagnosis: Ac on Chr Hypercapnic Resp Failure; AE-COPD; Cardiac Arrest with ROSC Interval history: Patient is seen today for: Acute on Chronic Hypercapnic Respiratory Failure; Acute COPD exacerbation; Cardiac Arrest with ROSC Seen and examined at bedside; 24hour events reviewed; nursing and respiratory care staff consulted; no adverse overnight events reported to me; per daughter mom did not want to be intubated; she is resting peacefully in bed now; sedated for RASS 0 to -1; denies acute uncontrolled pain; No N/V/F/C; no seizures Objective Vital Signs - 12hr 07/05/18 07/05/18 07/05/18 02:15 02:30 02:45 Pulse Rate 68 67 67 Respiratory 18 18 18 Rate Blood Pressure 108/71 109/72 116/73 Blood Pressure [Left] O2 Sat by Pulse 98 98 Oximetry 07/05/18 07/05/18 07/05/18 03:00 03:15 03:30 Pulse Rate 66 67 66 Respiratory 18 18 18 Rate Blood Pressure 115/75 124/78 118/77 Blood Pressure [Left] O2 Sat by Pulse 99 100 Oximetry 07/05/18 07/05/18 07/05/18 03:45 04:00 04:15 Pulse Rate 68 70 120 H Respiratory 18 18 17 Rate Blood Pressure 116/77 119/75 120/75 Blood Pressure [Left] O2 Sat by Pulse 98 98 Oximetry 07/05/18 07/05/18 07/05/18 04:30 04:38 04:45 Pulse Rate 67 118 H 70 Respiratory 18 18 Rate Blood Pressure 104/69 104/70 Blood Pressure [Left] O2 Sat by Pulse 97 98 98 Oximetry 07/05/18 07/05/18 07/05/18 05:00 05:15 05:30 Pulse Rate 68 68 68 Respiratory 18 18 18 Rate Blood Pressure 112/70 104/70 104/70 Blood Pressure [Left] O2 Sat by Pulse 98 98 98 Oximetry 07/05/18 07/05/18 07/05/18 05:45 06:00 06:15 Pulse Rate 63 66 66 Respiratory 18 18 18 Rate Blood Pressure 111/75 115/76 115/75 Blood Pressure [Left] O2 Sat by Pulse 99 100 99 Oximetry 07/05/18 07/05/18 07/05/18 06:30 06:45 07:00 Pulse Rate 67 64 64 Respiratory 18 18 18 Rate Blood Pressure 118/80 116/78 115/74 Blood Pressure [Left] O2 Sat by Pulse 100 100 99 Oximetry 07/05/18 07/05/18 07/05/18 07:15 07:30 07:45 Pulse Rate 64 63 61 Respiratory 18 18 18 Rate Blood Pressure 113/75 113/71 113/71 Blood Pressure 113/75 [Left] O2 Sat by Pulse 99 99 99 Oximetry 07/05/18 07/05/18 07/05/18 08:00 08:15 08:30 Pulse Rate 60 74 64 Respiratory 18 17 18 Rate Blood Pressure 104/70 119/72 108/68 Blood Pressure 112/72 [Left] O2 Sat by Pulse 100 99 98 Oximetry 07/05/18 07/05/18 07/05/18 08:45 09:00 09:15 Pulse Rate 64 62 60 Respiratory 18 18 18 Rate Blood Pressure 108/68 105/67 104/70 Blood Pressure [Left] O2 Sat by Pulse 98 99 Oximetry 07/05/18 07/05/18 07/05/18 09:30 09:58 10:00 Pulse Rate 59 L Respiratory 18 Rate Blood Pressure 104/70 Blood Pressure [Left] O2 Sat by Pulse 99 100 98 Oximetry 07/05/18 07/05/18 07/05/18 10:10 10:20 10:30 Pulse Rate 70 68 72 Respiratory 18 18 11 L Rate Blood Pressure 104/63 86/55 Blood Pressure [Left] O2 Sat by Pulse 99 97 Oximetry 07/05/18 07/05/18 07/05/18 10:40 10:50 11:00 Pulse Rate 64 62 62 Respiratory 9 L 18 18 Rate Blood Pressure 88/55 88/55 100/64 Blood Pressure [Left] O2 Sat by Pulse 97 97 Oximetry 07/05/18 07/05/18 07/05/18 11:10 11:20 11:30 Pulse Rate 65 65 62 Respiratory 18 18 18 Rate Blood Pressure 100/64 100/64 106/65 Blood Pressure [Left] O2 Sat by Pulse 96 95 96 Oximetry 07/05/18 07/05/18 07/05/18 11:40 11:50 12:00 Pulse Rate 61 67 68 Respiratory 18 9 L 14 Rate Blood Pressure 106/65 100/64 105/67 Blood Pressure [Left] O2 Sat by Pulse 96 96 96 Oximetry 07/05/18 07/05/18 12:10 12:34 Pulse Rate 71 84 Respiratory 21 32 H Rate Blood Pressure 105/67 100/73 Blood Pressure [Left] O2 Sat by Pulse 96 94 Oximetry Constitutional: no acute distress, other (middle aged CF, normocephalic and atraumatic with mildly increased resp effort at rest) Eyes: non-icteric ENT: oropharynx moist, other (ETT 22 cm ALIZA) Neck: supple, no lymphadenopathy, no JVD Effort: mildly labored Ascultation: Bilateral: diminished breath sounds, rhonchi Percussion: Bilateral: not dull Cardiovascular: regular rate and rhythm Gastrointestinal: normoactive bowel sounds, soft, non-tender, non-distended Integumentary: normal Extremities: no cyanosis, no edema, pink and warm, pulses normal Neurologic: normal mental status, non-focal exam, pupils equal and round, motor strength normal and Psychiatric: mood appropriate, affect normal CBC and BMP: 07/05/18 12:45 07/04/18 12:38 ABG, PT/INR, D-dimer: ABG POC ABG pH 7.447 (7.35-7.45) 07/05/18 05:43 POC ABG pCO2 46.5 (35-45) H 07/05/18 05:43 POC ABG pO2 95 (80-105) 07/05/18 05:43 POC ABG HCO3 32.1 07/05/18 05:43 POC ABG Total CO2 34 07/05/18 05:43 POC ABG O2 Sat 98 07/05/18 05:43 PT/INR, D-dimer PT 14.5 Sec. (12.2-14.9) 07/04/18 12:38 INR 1.09 (0.87-1.13) 07/04/18 12:38 D-Dimer 742.18 ng/mlDDU (0-234) H 07/05/18 12:45 Abnormal lab findings: Abnormal Labs 07/04/18 07/04/18 07/04/18 12:38 12:38 13:13 WBC 15.4 H Hgb 14.9 H Hct 44.2 H MCV 103 H MCH 35 H RDW 15.6 H Plt Count Lymph % (Auto) [place] % (Auto) 8.5 H Lymph # [place] # 1.3 H Seg Neutrophils % 75.1 H Seg Neutrophils # 11.5 H D-Dimer POC ABG pCO2 POC ABG pO2 Chloride 95.3 L Glucose 187 H Lactic Acid 3.10 H* NT-Pro-B Natriuret Pep 1969 H 07/04/18 07/05/18 07/05/18 14:11 05:43 12:45 WBC Hgb Hct MCV 102 H MCH 35 H RDW 15.4 H Plt Count 85 L Lymph % (Auto) 9.1 L [place] % (Auto) Lymph # 0.9 L [place] # Seg Neutrophils % 83.5 H Seg Neutrophils # 8.5 H D-Dimer POC ABG pCO2 61.5 H 46.5 H POC ABG pO2 479 H Chloride Glucose Lactic Acid NT-Pro-B Natriuret Pep 07/05/18 12:45 WBC Hgb Hct MCV MCH RDW Plt Count Lymph % (Auto) [place] % (Auto) Lymph # [place] # Seg Neutrophils % Seg Neutrophils # D-Dimer 742.18 H POC ABG pCO2 POC ABG pO2 Chloride Glucose Lactic Acid NT-Pro-B Natriuret Pep Chest x-ray: image reviewed Allied health notes reviewed: nursing
[2018-07-05 14:46] LABS: BUN/Creatinine Ratio 34; Blood Urea Nitrogen 24 mg/dL (7-17); Calcium 7.8 mg/dL (8.4-10.2); Hemolysis Index 6
--- NOTE | 2018-07-05 17:34 | Progress Note ---
Assessment and Plan Assessment and plan: 57 YO Female with COPD, Chronic Respiratory Failure on 4L Home Oxygen, DM, Depression, Opiate Dependence, Nicotine Dependence presents to ED for evaluation. Pt was seen and evaluated at a [facility] and was found to have Acute Hypoxemic Respiratory Failure and was subsequently intubated and placed on vent support . Pt also experienced cardiac arrest and was treated IAW ACLS protocol with return of perfusing rhythm as per [facility] staff. EMS was notified, and upon arrival patient was found to be in distress, but with perfusing cardiac rhythm. Pt transported to [facility] for further care and evaluation. Pt self extubated en route to [facility]. Pt seen and evaluated in ED and subsequently reintubated and placed on vent support. Pt found to have Acute Respiratory Failure, Sepsis, and Acidosis, and New onset CHF. Pt admitted to ICU. Discussed care plan with daughter, who reports that patient is DNR and does not wish to be intubated. Pt daughter requests extubation and comfort care measures. Awaiting family to sign DNR/AND declaration. Family at bedside today wants us to evalute if patient can be extubated and if not change to hospice by Sunday. (1) Sepsis Current Visit: Yes Status: Acute Qualifiers: Sepsis type: sepsis due to unspecified organism Qualified Code(s): A41.9 - Sepsis, unspecified organism Plan to address problem: IV antibiotic therapy, CBC, CMP, IV antibiotic therapy, blood cultures, chest x ray, urinalysis, monitor uop q shift, serial lactic acid (2) Paroxysmal atrial fibrillation Current Visit: Yes Status: Chronic Cardiology input noted. (3)CHF (congestive heart failure) Current Visit: Yes Status: Acute Qualifiers: Heart failure chronicity: acute Plan to address problem: Admit to ICU, supportive care, Pt found to have poor prognosis. Pt family request comfort care measures. (4) Acute on chronic respiratory failure with hypercapnia Current Visit: No Status: Acute Plan to address problem: Pt intubated, sedated, on vent support. Pt family request extubation, and initiation of comfort care measures. (5)Type 2 diabetes mellitus Current Visit: Yes Status: Chronic Qualifiers: Diabetes mellitus terminal operations supervisor insulin use: without terminal operations supervisor use Diabetes mellitus complication status: without complication Qualified Code(s): E11.9 - Type 2 diabetes mellitus without complications (6) Acidosis Current Visit: Yes Status: Acute Plan to address problem: IVF resuscitation therapy, monitor uop q shift, serial lactic acid (7) DVT prophylaxis Current Visit: No Status: Acute Plan to address problem: SCD to BLE while in bed. History Interval history: Patient seen and examined this am. remains intubated and sedated. Hospitalist Physical - Physical exam Narrative exam: General appearance: Present: INTUBATED - EENT Eyes: Present: miosis - Neck Neck: Present: supple, normal ROM - Respiratory Respiratory effort: labored Respiratory: bilateral: diminished, rhonchi - Cardiovascular Heart Sounds: Present: S1 & S2. Absent: rub, click - Extremities Extremities: no ischemia Extremity abnormal: edema Peripheral Pulses: abnormal - Abdominal General gastrointestinal: Present: soft, non-tender, non-distended, normal bowel sounds Female genitourinary: Present: normal - Integumentary Integumentary: Present: clear, dry, clammy, decreased turgor - Musculoskeletal Musculoskeletal: generalized weakness - Psychiatric Psychiatric: no appropriate mood/affect, no intact judgment & insight, no memory intact - Neurologic Neurologic: SEDATED - Constitutional Vitals: Temp Pulse Resp BP Pulse Ox 97.9 F 88 26 H 132/81 94 07/04/18 23:34 07/05/18 14:48 07/05/18 14:35 07/05/18 14:48 07/05/18 14:51 General appearance: Present: other (intubated, sedated) Results - Labs CBC & Chem 7: 07/05/18 12:45 07/05/18 12:45 Labs: Laboratory Last Values WBC 10.1 K/mm3 (4.5-11.0) 07/05/18 12:45 RBC 3.74 M/mm3 (3.65-5.03) 07/05/18 12:45 Hgb 12.9 gm/dl (10.1-14.3) 07/05/18 12:45 Hct 38.3 % (30.3-42.9) 07/05/18 12:45 MCV 102 fl (79-97) H 07/05/18 12:45 MCH 35 pg (28-32) H 07/05/18 12:45 MCHC 34 % (30-34) 07/05/18 12:45 RDW 15.4 % (13.2-15.2) H 07/05/18 12:45 Plt Count 85 K/mm3 (140-440) L 07/05/18 12:45 Lymph % (Auto) 9.1 % (13.4-35.0) L 07/05/18 12:45 [place] % (Auto) 7.3 % (0.0-7.3) 07/05/18 12:45 Eos % (Auto) 0.0 % (0.0-4.3) 07/05/18 12:45 Baso % (Auto) 0.1 % (0.0-1.8) 07/05/18 12:45 Lymph # 0.9 K/mm3 (1.2-5.4) L 07/05/18 12:45 [place] # 0.7 K/mm3 (0.0-0.8) 07/05/18 12:45 Eos # 0.0 K/mm3 (0.0-0.4) 07/05/18 12:45 Baso # 0.0 K/mm3 (0.0-0.1) 07/05/18 12:45 Seg Neutrophils % 83.5 % (40.0-70.0) H 07/05/18 12:45 Seg Neutrophils # 8.5 K/mm3 (1.8-7.7) H 07/05/18 12:45 PT 14.5 Sec. (12.2-14.9) 07/04/18 12:38 INR 1.09 (0.87-1.13) 07/04/18 12:38 APTT 29.0 Sec. (24.2-36.6) 07/04/18 12:38 D-Dimer 742.18 ng/mlDDU (0-234) H 07/05/18 12:45 POC ABG pH 7.394 (7.35-7.45) 07/05/18 14:36 POC ABG pCO2 58.7 (35-45) H 07/05/18 14:36 POC ABG pO2 92 (80-105) 07/05/18 14:36 POC ABG HCO3 35.8 07/05/18 14:36 POC ABG Total CO2 38 07/05/18 14:36 POC ABG O2 Sat 97 07/05/18 14:36 POC ABG Base Excess 11 07/05/18 14:36 FiO2 40 % 07/05/18 14:36 Sodium 142 mmol/L (137-145) 07/05/18 12:45 Potassium 3.8 mmol/L (3.6-5.0) D 07/05/18 12:45 Chloride 101.0 mmol/L (98-107) 07/05/18 12:45 Carbon Dioxide 33 mmol/L (22-30) H D 07/05/18 12:45 Anion Gap 12 mmol/L 07/05/18 12:45 BUN 24 mg/dL (7-17) H 07/05/18 12:45 Creatinine 0.7 mg/dL (0.7-1.2) 07/05/18 12:45 Estimated GFR > 60 ml/min 07/05/18 12:45 BUN/Creatinine Ratio 34 % 07/05/18 12:45 Glucose 145 mg/dL (65-100) H 07/05/18 12:45 Lactic Acid 0.90 mmol/L (0.7-2.0) 07/04/18 21:07 Calcium 7.8 mg/dL (8.4-10.2) L 07/05/18 12:45 Troponin T < 0.010 ng/mL (0.00-0.029) 07/04/18 12:38 C-Reactive Protein 15.00 mg/dL (0.00-1.30) H 07/05/18 12:45 NT-Pro-B Natriuret Pep 1969 pg/mL (0-900) H 07/04/18 12:38 Urine Color Yellow (Yellow) 07/04/18 Unknown Urine Turbidity Clear (Clear) 07/04/18 Unknown Urine pH 6.0 (5.0-7.0) 07/04/18 Unknown Ur Specific [place] 1.017 (1.003-1.030) 07/04/18 Unknown Urine Protein 100 mg/dl mg/dL (Negative) 07/04/18 Unknown Urine Glucose (UA) 50 mg/dL (Negative) 07/04/18 Unknown Urine Ketones Tr mg/dL (Negative) 07/04/18 Unknown Urine Blood Mod (Negative) 07/04/18 Unknown Urine Nitrite Neg (Negative) 07/04/18 Unknown Urine Bilirubin Neg (Negative) 07/04/18 Unknown Urine Urobilinogen < 2.0 mg/dL (<2.0) 07/04/18 Unknown Ur Leukocyte Esterase Neg (Negative) 07/04/18 Unknown Urine WBC (Auto) 1.0 /HPF (0.0-6.0) 07/04/18 Unknown Urine RBC (Auto) 21.0 /HPF (0.0-6.0) 07/04/18 Unknown U Epithel Cells (Auto) 1.0 /HPF (0-13.0) 07/04/18 Unknown Urine Mucus Few /HPF 07/04/18 Unknown Nutrition/Malnutrition Assess - Dietary Evaluation Nutrition/Malnutrition Findings: Nutrition Notes Start: 07/05/18 12:32 Freq: Status: Active Protocol: Document 07/05/18 12:35 KH (Rec: 07/05/18 13:00 KH [email or web address]) Co-Sign 07/05/18 12:35 LP Nutrition Notes Need for Assessment generated from: MD Order Initial or Follow up Assessment Current Diagnosis COPD Diabetes Hypertension Respiratory Failure Other Pertinent Diagnosis Hx of tobacco use, Opiate dependence, depression Current Diet No diet ordered Labs/Tests Reviewed. Height 5 ft 6 in Weight 84 kg [place] Body Weight (lbs) 130.0 BMI 29.9 Subjective/Other Information MD consult for evaluation of nutritional intake. During interdisciplinary rounds, MD requested TF reccomendations in case pt. is not extubated. Percent of energy/protein needs met: 0%/0% Burn Absent Trauma Absent Current % PO NEGLIGIBLE #1 Nutrition Diagnosis Inadequate oral intake Etiology Vent As Evidenced by Signs and Symptoms NPO status Is patient on ventilator? Yes Is Patient Ambulatory and/or Out of Bed No REE-([facility]-confined to bed) [phone] Calculation Used for Recommendations [facility] Additional Notes Pro needs: 101-168g/day (1.2- 2g/kg BW) Fluid needs: 1 ml/kcal Nutrition Intervention Change Diet Order: Advance as medically feasible Nutrition Support: Vital AF at 60 ml/hr. Provide 90 ml flushes q4h. Kcal 1,728 Protein (gm) 108 Fluid (mL) 1,752 Goal #1 Initiate TF if not extubated per MD Goal #2 Diet advancement per MD Anticipated Discharge Needs: unable to determine at this time Follow-Up By: 07/08/18 Additional Comments f/u: diet advancement, TF initiation
--- NOTE | 2018-07-05 19:50 | Consultation ---
PULMONARY CRITICAL CARE CONSULTATION CONSULTING PHYSICIAN: Dr. Morgan, Emergency Room physician. REASON FOR CONSULTATION: Acute respiratory failure, on mechanical ventilatory support. CHIEF COMPLAINT AND HISTORY OF PRESENT ILLNESS: As follows: The patient is a 57-year-old female, past medical history significant amongst other things for chronic home oxygen dependent COPD, but also history of opiate dependence and tobacco abuse 20+ pack year smoker, continues to smoke according to her daughter, who was in the room when I saw her. She was being evaluated at [facility]. She was found to be significantly hypoxemic. There is a question that she did suffered cardiac arrest over there. She was treated with ACLS protocol with return of spontaneous circulation. She was intubated. Emergency Medical Services were called. She was transferred to [facility]. En route she self-extubated. In the Emergency Room, she was immediately reintubated and placed on mechanical ventilatory support. When I stopped by to see her, she was on the mechanical ventilator. She was able to nod her head yes or no. When asked about pain, she actually said yes, she was in pain. According to the family in the room that do not have any history of vomiting or overt aspiration. According to the daughter, she continues to smoke, but was not particularly ill prior to her decompensation today. There has been no new leg pain or swelling. No long distance travel. The above is as much of the history of presentation as I have. Reportedly, the patient apparently did not want intubation in the first case, but at this point the daughter wants us to see if she can be extubated over the weekend. That really is as much of the history of presentation as I have. PAST MEDICAL HISTORY: COPD, home oxygen dependent. She is obese. She has a history of depression. She has got a history of diabetes, opiate dependence and tobacco use disorder. PAST SURGICAL HISTORY: She has had a , mastectomy, and spinal surgery. MEDICATIONS: She was on at the time I stopped by to see were reviewed. PERTINENT MEDICATIONS: Included the following: She was on albuterol nebulizer treatments q.3 hours p.r.n. 2.5 mg p.r.n. shortness of breath, Levaquin 750 mg IV daily. ALLERGIES: IODINE and IODINE CONTAINING PRODUCTS. Nature of this allergy is unknown. DIET: Obese lady. According to the daughter no significant weight loss or gain in the preceding few weeks to months. FAMILY AND SOCIAL HISTORY: Lives in the community. She has a 20+ pack year tobacco smoking history and continues to smoke. Alcohol and illicit drug use history were denied. She; however, has a history of prescription drug abuse. FAMILY HISTORY: Otherwise, nonsignificant. REVIEW OF SYSTEMS: Unobtainable secondary to the patient's medical and mental condition since she has been in the Emergency Room. No gross hematochezia or melena. No gross hematuria, no hematemesis, no bloody tracheal secretions and no witnessed seizures. Review of systems otherwise unobtainable or as in the body of history above. PHYSICAL EXAMINATION: VITAL SIGNS: At presentation in the emergency room, she was afebrile, temperature 98.4 degrees Fahrenheit with a pulse of 90, respiratory rate of 18, which was the set rate on the ventilator, blood pressure was 88/58, O2 sats 100%, inspired oxygen concentration at that time was 100%. She was on the mechanical ventilator. GENERAL: Obese, middle-aged, but elderly looking female, normocephalic, atraumatic with mildly increased respiratory effort on the mechanical ventilator. HEAD, EYES, EARS, NOSE AND THROAT: She was anicteric, no conjunctival erythema. Endotracheal tube was in place, taped at the lips around 20-23 cm. No thyromegaly, no gross jugular venous distention. NECK: Grossly, there were no palpable lymph nodes in the supraclavicular or submandibular lymph node chains. LUNGS: Auscultation of both lung long revealed bibasilar rhonchi, prolonged expiratory phase. No active wheezing. Her respiratory effort was moderate. HEART: Heart sounds 1 and 2 are heard. They were regular in rate and rhythm without rubs or murmurs. ABDOMEN: Soft, full, nontender. There was no palpable hepatosplenomegaly. EXTREMITIES: Without overt digital clubbing, cyanosis and she had trace pedal edema bilaterally, dorsalis pedis pulses were palpable bilaterally. NEUROLOGIC: The pupils were equal, round, about 2 mm, sluggishly reactive to light. Extraocular muscle movements were intact. She had spontaneous movements to all extremities. No obvious muscle wasting. No fasciculations. The skin was of poor turgor without overt cellulitis or rash. Unable to evaluate her mood and affect. LABORATORY DATA: For my review is as follows: White cell count 15,400, hemoglobin 14.9, hematocrit 44.2, platelet count was 156. No manual differential. INR was within normal limits. Blood gas showed a pH of 7.40, pCO2 of 62, pO2 of 479 that was on the mechanical ventilator, assist control mode of ventilation, tidal volumes I believe 500, rate of 18, PEEP of 6, and 100% FiO2. Serum sodium 139, potassium 5.0, chloride 95, bicarbonate 25, BUN 17, creatinine 0.7 and glucose of 187. Lactic acid level was elevated at 3.1. BNP was elevated at 1969. Urinalysis negative for leukocyte esterase and nitrites, one white cell per high power field. Two sets of blood cultures no growth to date. Chest x-ray was done. I have reviewed the chest x-ray and also reviewed the radiologist's interpretation. Endotracheal tube is in place, tip is at the lower level of the clavicular heads. Otherwise, no acute process. There is some hilar enlargement that may suggest enlarged pulmonary arteries. No gross pneumothorax, no gross bony fracture. ASSESSMENT: 1. Acute on chronic hypoxemic hypercapnic respiratory failure. 2. Cardiac arrest with return of spontaneous circulation. 3. Obesity. 4. Leukocytosis. 5. Lactic acidosis. 6. Elevated serum BMP. 7. History of opiate dependence. 8. Tobacco use disorder. 9. History of atrial fibrillation per her daughter. PLAN: I do feel we should be able to get her off the mechanical ventilator. My suspicion is that she suffered hypercapnic respiratory failure that led to the cardiac arrest. However, this is just a suspicion even though the daughter once no huge heroic measures. At this point, we will continue with the workup. I will go ahead and order D-dimer level and bilateral lower extremity Dopplers in this lady with severe COPD and some pedal edema to rule out venous thromboembolic phenomenon. We will continue empiric Levaquin monotherapy for the patient with severe COPD exacerbation. Cardiology evaluation will be at the behest attending physician. Ventilator-associated pneumonia bundle has been introduced. Oxygen will be weaned to keep sats greater than or equal to about 90%. Weaning trials will start as early as tomorrow. Daily sedation assessment trials will also be done. We will titrate sedation to her RASS Scale of 0 to -1. She is going to be placed on GI and DVT prophylaxis in the short term. Flu and pneumonia vaccination will be addressed per protocol. Thank you very much for the consult. She is critically ill at high risk of decompensation including the risk of from a cardiopulmonary system decompensation. At this time, I have spent about 35-40 minutes of critical care time without overlap and excluding any procedural time that may be necessary. I have discussed the care plan with her daughter, who is in agreement. We will follow along. Thanks again for the consult. JOB# [id number] LUIS/XIMENA
[2018-07-05] MEDS: DUONEB *Not for PRN Use IH SCH (19:52)
[2018-07-05] MEDS: BROVANA NEBU IH SCH (19:52)
[2018-07-05] MEDS: PULMICORT IH SCH (19:52)
[2018-07-06 05:21] LABS: Hematocrit 39.6 % (30.3-42.9); Hemoglobin 13.3 gm/dl (10.1-14.3); Mean Corpuscular HGB Conc 34 % (30-34); Mean Corpuscular Volume 104 fl (79-97); Red Blood Count 3.82 M/mm3 (3.65-5.03); Red Cell Distribution Width 15.3 % (13.2-15.2)
[2018-07-06 05:25] LABS: Platelet Count 139 K/mm3 (140-440)
[2018-07-06 05:31] LABS: BUN/Creatinine Ratio 32; Blood Urea Nitrogen 16 mg/dL (7-17); Calcium 8.2 mg/dL (8.4-10.2); Hemolysis Index 47
--- NOTE | 2018-07-06 06:04 | XRay Report ---
FINAL REPORT EXAM: XR CHEST 1V AP HISTORY: follow up respiratory failure TECHNIQUE: AP portable view(s) of the chest obtained. PRIORS: 05/28/2018, 07/17/2017 CT FINDINGS: No mediastinal shift. Cardiac silhouette is not enlarged. No pneumothorax, effusion, or focal airspac e disease. Bibasilar atelectasis/scarring. No acute skeletal findings. IMPRESSION: No acute pulmonary finding.
[2018-07-06] MEDS: BROVANA NEBU IH SCH ×2 (09:41→19:34)
[2018-07-06] MEDS: PULMICORT IH SCH ×2 (09:41→19:34)
[2018-07-06] MEDS: DUONEB *Not for PRN Use IH SCH ×3 (09:41→19:34)
[2018-07-06] MEDS: LEVAQUIN 750MG/150ML 750 MG/150 ML BAG IV SCH (09:41)
[2018-07-06] MEDS: SODIUM CHLORIDE FLUSH SYRINGE 10 ML IV SCH ×2 (09:42→22:35)
[2018-07-06] MEDS: LOVENOX SUB-Q SCH (09:42)
[2018-07-06] MEDS: PEPCID IV SCH ×2 (09:42→22:36)
[2018-07-06] MEDS: TORADOL IV PRN ×2 (10:58→20:13)
[2018-07-06] MEDS ORDERED: CARDIZEM IV ONE (11:11)
--- NOTE | 2018-07-06 13:02 | Progress Note ---
Assessment and Plan Consult date: 07/05/18 Requesting physician: NANCY JONES Consult reason: atrial fibrillation History of present illness: The pt is a 57 YO Female with COPD, Chronic Respiratory Failure on 3-4L Home Oxygen, paroxysmal atrial fib/flutter (s/p DCCV here 06/2017), HTN, HLP, DM, CAD s/p reported PCI last year at [facility], tobacco use. She is followed by [place]. She is intubated and sedated on evaluation and thus HPI obtained per her daughters at bedside. Pt was recently hospitalized over [place] for respiratory failure. She was noted to be very lethargic and SOB yesterday and was evaluated at a [facility] center and was found to have Acute Respiratory Failure and was subsequently intubated and placed on vent support. Pt also noted to have AFib with RVR and reported brief ? cardiac arrest and was treated per ACLS protocol with return of perfusing rhythm as per [place] staff. EMS was notified, and upon arrival patient was found to be in distress, but with perfusing cardiac rhythm. Pt transported to [facility] for further care and evaluation. Pt self extubated en route to [facility]. Pt seen and evaluated in ED and subsequently reintubated and placed on vent support. On evaluation, pt is in NSR. Echo done 06/2017 showed EF 55-60%, mod pulm HTN with RVSP 51mmHg. 07/06/2018>patient in atrial fibrillation with rapid VR,will try iv Diltiazem. - Patient Problems (1) Acute on chronic respiratory failure Current Visit: Yes Status: Acute (2) COPD (chronic obstructive pulmonary disease) Current Visit: Yes Status: Chronic (3) HTN (hypertension) Current Visit: Yes Status: Chronic (4) Paroxysmal atrial fibrillation Current Visit: Yes Status: Chronic (5) Type 2 diabetes mellitus Current Visit: Yes Status: Chronic Qualifiers: Diabetes mellitus [facility] insulin use: without [facility] use Diabetes mellitus complication status: without complication Qualified Code(s): E11.9 - Type 2 diabetes mellitus without complications (6) Depression Current Visit: No Status: Chronic Qualifiers: Depression Type: unspecified Qualified Code(s): F32.9 - Major depressive disorder, single episode, unspecified Subjective Date of service: 07/06/18 Principal diagnosis: Ac on Chr Hypercapnic Resp Failure; AE-COPD; Cardiac Arrest with ROSC Interval history: Patient now in atrial flutter with rapid VR,150's.Was given bolus of cardiazem with no effect. Objective Vital Signs Temp Pulse Pulse Resp Resp BP Pulse Ox 07/06/18 11:49 160 H 99/74 07/06/18 11:10 162 H 18 85/69 93 07/06/18 11:00 158 H 22 123/80 93 07/06/18 10:50 168 H 23 123/80 92 07/06/18 10:40 84 27 H 91 07/06/18 10:39 176 H 25 H 92 07/06/18 10:20 145 H 19 123/80 96 07/06/18 10:10 89 20 123/80 96 07/06/18 10:09 97 07/06/18 10:07 84 20 07/06/18 10:00 87 17 123/80 98 07/06/18 09:50 76 23 123/76 98 07/06/18 09:41 77 20 07/06/18 09:40 70 22 122/78 100 07/06/18 09:30 70 23 122/78 100 07/06/18 09:20 72 23 122/78 100 07/06/18 09:10 70 19 123/76 99 07/06/18 09:00 73 20 123/76 96 07/06/18 08:50 70 21 122/78 99 07/06/18 08:40 80 28 H 122/70 99 07/06/18 08:30 73 19 122/70 100 07/06/18 08:20 68 20 122/70 100 07/06/18 08:10 71 21 122/78 100 07/06/18 08:00 72 21 122/78 99 07/06/18 07:50 70 20 122/70 100 07/06/18 07:40 72 20 122/70 100 07/06/18 07:30 69 23 122/70 100 07/06/18 07:20 66 20 122/70 100 07/06/18 07:10 72 22 122/70 100 07/06/18 07:00 66 22 122/70 99 07/06/18 06:50 72 25 H 126/80 99 07/06/18 06:40 76 23 126/80 99 07/06/18 06:30 86 27 H 126/80 99 07/06/18 06:20 76 27 H 126/80 99 07/06/18 06:10 82 30 H 126/80 100 07/06/18 06:00 81 24 126/80 99 07/06/18 05:50 77 23 116/70 100 07/06/18 05:40 75 25 H 116/70 100 07/06/18 05:30 71 25 H 137/89 100 07/06/18 05:20 72 24 137/89 100 07/06/18 05:10 70 25 H 137/89 100 07/06/18 05:00 72 28 H 137/89 100 07/06/18 04:50 67 24 137/89 100 07/06/18 04:40 70 24 137/89 100 07/06/18 04:30 70 22 137/89 99 07/06/18 04:20 71 26 H 137/89 97 07/06/18 04:10 86 24 137/89 96 07/06/18 04:00 98.5 F 84 18 115/70 97 07/06/18 03:50 77 24 115/70 99 07/06/18 03:40 69 26 H 115/70 100 07/06/18 03:30 68 24 115/70 99 07/06/18 03:20 69 25 H 115/70 99 07/06/18 03:10 70 26 H 115/70 99 07/06/18 03:00 69 14 115/70 98 07/06/18 02:50 67 11 L 112/72 99 07/06/18 02:40 70 23 112/72 100 07/06/18 02:30 70 23 112/72 98 07/06/18 02:20 66 23 112/72 99 07/06/18 02:10 71 21 112/72 100 07/06/18 02:00 69 22 108/68 100 07/06/18 01:50 71 23 108/68 100 07/06/18 01:40 66 21 108/68 99 07/06/18 01:30 67 22 116/74 100 07/06/18 01:20 67 23 116/74 100 07/06/18 01:10 69 25 H 116/74 97 07/06/18 01:00 73 26 H 108/68 98 07/06/18 00:50 70 27 H 116/74 98 07/06/18 00:40 69 28 H 116/74 99 07/06/18 00:30 67 25 H 116/74 99 07/06/18 00:20 76 17 116/74 95 07/06/18 00:10 73 23 116/74 99 07/06/18 00:00 97.7 F 77 25 H 116/74 97 07/05/18 23:50 71 23 110/67 98 07/05/18 23:40 80 30 H 110/67 98 07/05/18 23:30 70 15 110/67 99 07/05/18 23:20 72 20 110/67 99 07/05/18 23:10 73 24 110/67 99 07/05/18 23:00 70 25 H 110/67 98 07/05/18 22:50 85 28 H 121/80 97 07/05/18 22:40 84 21 121/80 93 07/05/18 22:30 76 24 121/80 98 07/05/18 22:20 74 28 H 121/80 99 07/05/18 22:10 78 26 H 121/80 99 07/05/18 22:00 76 28 H 121/80 98 07/05/18 21:50 80 25 H 123/78 99 07/05/18 21:40 77 18 123/78 99 07/05/18 21:30 75 25 H 123/78 99 07/05/18 21:20 77 27 H 123/78 99 07/05/18 21:10 77 26 H 123/78 99 07/05/18 21:00 81 26 H 123/78 98 07/05/18 20:50 78 24 113/71 99 07/05/18 20:40 75 26 H 113/71 99 07/05/18 20:30 81 27 H 113/71 98 07/05/18 20:20 80 30 H 113/71 98 07/05/18 20:10 79 27 H 113/71 90 07/05/18 20:00 85 91 H 25 H 25 H 113/71 82 L 07/05/18 19:52 99.7 F H 85 29 H 95 07/05/18 19:50 81 19 132/85 90 07/05/18 19:40 79 26 H 132/85 94 07/05/18 19:30 82 23 132/85 93 07/05/18 19:20 79 30 H 132/85 95 07/05/18 19:10 76 26 H 132/85 97 07/05/18 19:00 77 28 H 132/85 97 07/05/18 18:50 74 27 H 118/75 97 07/05/18 18:40 76 27 H 118/75 97 07/05/18 18:30 73 27 H 118/75 95 07/05/18 18:20 76 28 H 124/78 97 07/05/18 18:10 76 24 124/78 97 07/05/18 18:00 78 31 H 124/78 95 07/05/18 17:50 75 33 H 128/77 97 07/05/18 17:40 81 28 H 128/77 97 07/05/18 17:30 81 26 H 128/77 98 07/05/18 17:20 79 26 H 117/79 97 07/05/18 17:10 83 18 117/79 97 07/05/18 17:00 80 24 117/79 94 07/05/18 14:51 94 07/05/18 14:48 88 132/81 95 07/05/18 14:35 82 26 H 132/81 98 - Physical Examination General: No Apparent Distress (not intubated.) Neck: Positive: neck supple, trachea midline Cardiac: Positive: Tachycardia Lungs: Positive: Decreased Breath Sounds Neuro: Positive: Other (intubated, sedated ) Abdomen: Positive: Unremarkable. Negative: Tender Extremities: Absent: edema - Labs and Meds CBC 07/05/18 07/06/18 Range/Units 12:45 04:15 WBC 10.1 10.8 (4.5-11.0) K/mm3 RBC 3.74 3.82 (3.65-5.03) M/mm3 Hgb 12.9 13.3 (10.1-14.3) gm/dl Hct 38.3 39.6 (30.3-42.9) % Plt Count 85 L 139 L (140-440) K/mm3 Lymph # 0.9 L (1.2-5.4) K/mm3 [place] # 0.7 (0.0-0.8) K/mm3 Eos # 0.0 (0.0-0.4) K/mm3 Baso # 0.0 (0.0-0.1) K/mm3 Comprehensive Metabolic Panel 01/11/19 01/12/19 Range/Units 12:45 04:15 Sodium 142 142 (137-145) mmol/L Potassium 3.8 D 4.1 (3.6-5.0) mmol/L Chloride 101.0 100.9 (98-107) mmol/L Carbon Dioxide 33 H D 35 H (22-30) mmol/L BUN 24 H 16 (7-17) mg/dL Creatinine 0.7 0.5 L (0.7-1.2) mg/dL Glucose 145 H 139 H (65-100) mg/dL Calcium 7.8 L 8.2 L (8.4-10.2) mg/dL - Imaging and Cardiology EKG: report reviewed, image reviewed Echo: report reviewed (06/2017 showed EF 55-60%, mod pulm HTN with RVSP 51mmHg. ) - EKG Supraventricular dysrhythmia: atrial flutter (with rapid VR.) - Allied health notes Allied health notes reviewed: nursing
--- NOTE | 2018-07-06 13:04 | Progress Note ---
Assessment and Plan Assessment and plan: 57 YO Female with COPD, Chronic Respiratory Failure on 4L Home Oxygen, DM, Depression, Opiate Dependence, Nicotine Dependence presents to ED for evaluation. Pt was seen and evaluated at a [facility] center and was found to have Acute Hypoxemic Respiratory Failure and was subsequently intubated and placed on vent support . Pt also experienced cardiac arrest and was treated IAW ACLS protocol with return of perfusing rhythm as per [place] staff. EMS was notified, and upon arrival patient was found to be in distress, but with perfusing cardiac rhythm. Pt transported to [facility] for further care and evaluation. Pt self extubated en route to [facility]. Pt seen and evaluated in ED and subsequently reintubated and placed on vent support. Pt found to have Acute Respiratory Failure, Sepsis, and Acidosis, and New onset CHF. Pt admitted to ICU. Discussed care plan with daughter, who reports that patient is DNR and does not wish to be intubated. Pt daughter requests extubation and comfort care measures. Awaiting family to sign DNR/AND declaration. Family at bedside today wants us to evalute if patient can be extubated and if not change to hospice by Sunday. (1) Sepsis Current Visit: Yes Status: Acute Qualifiers: Sepsis type: sepsis due to unspecified organism Qualified Code(s): A41.9 - Sepsis, unspecified organism Plan to address problem: IV antibiotic therapy, CBC, CMP, IV antibiotic therapy, blood cultures, chest x ray, urinalysis, monitor uop q shift, serial lactic acid (2) Paroxysmal atrial fibrillation Current Visit: Yes Status: Chronic Cardiology input noted. cardizem 10mg iv trial (3)CHF (congestive heart failure) Current Visit: Yes Status: Acute Qualifiers: Heart failure chronicity: acute Plan to address problem: Admit to ICU, supportive care, Pt found to have poor prognosis. Pt family request comfort care measures. (4) Acute on chronic respiratory failure with hypercapnia Current Visit: No Status: Acute Plan to address problem: Pt intubated, sedated, on vent support. Pt family request extubation, and initiation of comfort care measures. (5)Type 2 diabetes mellitus Current Visit: Yes Status: Chronic Qualifiers: Diabetes mellitus intermediate designer insulin use: without shelter use Diabetes mellitus complication status: without complication Qualified Code(s): E11.9 - Type 2 diabetes mellitus without complications (6) Acidosis Current Visit: Yes Status: Acute Plan to address problem: IVF resuscitation therapy, monitor uop q shift, serial lactic acid (7) DVT prophylaxis Current Visit: No Status: Acute Plan to address problem: SCD to BLE while in bed. cct 45mins History Interval history: Patient seen and examined this am. Now extubated, no new compliants at the time of my exam. later in the day resorted back to AFIB with RVR Hospitalist Physical - Physical exam Narrative exam: General appearance: Present: awake alert, some cough non productive - EENT Eyes: Present: miosis - Neck Neck: Present: supple, normal ROM - Respiratory Respiratory effort:normal Respiratory: bilateral: diminished, rhonchi - Cardiovascular Heart Sounds: Present: S1 & S2. Absent: rub, click - Extremities Extremities: no ischemia Extremity abnormal: edema Peripheral Pulses: abnormal - Abdominal General gastrointestinal: Present: soft, non-tender, non-distended, normal bowel sounds Female genitourinary: Present: normal - Integumentary Integumentary: Present: clear, dry, decreased turgor - Musculoskeletal Musculoskeletal: generalized weakness - Psychiatric Psychiatric: appropriate mood/affect, intact judgment & insight, memory intact - Neurologic Neurologic: anxious - Constitutional Vitals: Temp Pulse Resp BP Pulse Ox 98.5 F 160 H 18 99/74 93 07/06/18 04:00 07/06/18 11:49 07/06/18 11:10 07/06/18 11:49 07/06/18 11:10 General appearance: Present: other (intubated, sedated) Results - Labs CBC & Chem 7: 07/06/18 04:15 07/06/18 04:15 Labs: Laboratory Last Values WBC 10.8 K/mm3 (4.5-11.0) 07/06/18 04:15 RBC 3.82 M/mm3 (3.65-5.03) 07/06/18 04:15 Hgb 13.3 gm/dl (10.1-14.3) 07/06/18 04:15 Hct 39.6 % (30.3-42.9) 07/06/18 04:15 MCV 104 fl (79-97) H 07/06/18 04:15 MCH 35 pg (28-32) H 07/06/18 04:15 MCHC 34 % (30-34) 07/06/18 04:15 RDW 15.3 % (13.2-15.2) H 07/06/18 04:15 Plt Count 139 K/mm3 (140-440) L 07/06/18 04:15 Lymph % (Auto) 9.1 % (13.4-35.0) L 07/05/18 12:45 [place] % (Auto) 7.3 % (0.0-7.3) 07/05/18 12:45 Eos % (Auto) 0.0 % (0.0-4.3) 07/05/18 12:45 Baso % (Auto) 0.1 % (0.0-1.8) 07/05/18 12:45 Lymph # 0.9 K/mm3 (1.2-5.4) L 07/05/18 12:45 [place] # 0.7 K/mm3 (0.0-0.8) 07/05/18 12:45 Eos # 0.0 K/mm3 (0.0-0.4) 07/05/18 12:45 Baso # 0.0 K/mm3 (0.0-0.1) 07/05/18 12:45 Seg Neutrophils % 83.5 % (40.0-70.0) H 07/05/18 12:45 Seg Neutrophils # 8.5 K/mm3 (1.8-7.7) H 07/05/18 12:45 PT 14.5 Sec. (12.2-14.9) 07/04/18 12:38 INR 1.09 (0.87-1.13) 07/04/18 12:38 APTT 29.0 Sec. (24.2-36.6) 07/04/18 12:38 D-Dimer 742.18 ng/mlDDU (0-234) H 07/05/18 12:45 POC ABG pH 7.394 (7.35-7.45) 07/05/18 14:36 POC ABG pCO2 58.7 (35-45) H 07/05/18 14:36 POC ABG pO2 92 (80-105) 07/05/18 14:36 POC ABG HCO3 35.8 07/05/18 14:36 POC ABG Total CO2 38 07/05/18 14:36 POC ABG O2 Sat 97 07/05/18 14:36 POC ABG Base Excess 11 07/05/18 14:36 FiO2 40 % 07/05/18 14:36 Sodium 142 mmol/L (137-145) 07/06/18 04:15 Potassium 4.1 mmol/L (3.6-5.0) 07/06/18 04:15 Chloride 100.9 mmol/L (98-107) 07/06/18 04:15 Carbon Dioxide 35 mmol/L (22-30) H 07/06/18 04:15 Anion Gap 10 mmol/L 07/06/18 04:15 BUN 16 mg/dL (7-17) 07/06/18 04:15 Creatinine 0.5 mg/dL (0.7-1.2) L 07/06/18 04:15 Estimated GFR > 60 ml/min 07/06/18 04:15 BUN/Creatinine Ratio 32 % 07/06/18 04:15 Glucose 139 mg/dL (65-100) H 07/06/18 04:15 Lactic Acid 0.90 mmol/L (0.7-2.0) 07/04/18 21:07 Calcium 8.2 mg/dL (8.4-10.2) L 07/06/18 04:15 Troponin T < 0.010 ng/mL (0.00-0.029) 07/04/18 12:38 C-Reactive Protein 15.00 mg/dL (0.00-1.30) H 07/05/18 12:45 NT-Pro-B Natriuret Pep 1969 pg/mL (0-900) H 07/04/18 12:38 Urine Color Yellow (Yellow) 07/04/18 Unknown Urine Turbidity Clear (Clear) 07/04/18 Unknown Urine pH 6.0 (5.0-7.0) 07/04/18 Unknown Ur Specific [place] 1.017 (1.003-1.030) 07/04/18 Unknown Urine Protein 100 mg/dl mg/dL (Negative) 07/04/18 Unknown Urine Glucose (UA) 50 mg/dL (Negative) 07/04/18 Unknown Urine Ketones Tr mg/dL (Negative) 07/04/18 Unknown Urine Blood Mod (Negative) 07/04/18 Unknown Urine Nitrite Neg (Negative) 07/04/18 Unknown Urine Bilirubin Neg (Negative) 07/04/18 Unknown Urine Urobilinogen < 2.0 mg/dL (<2.0) 07/04/18 Unknown Ur Leukocyte Esterase Neg (Negative) 07/04/18 Unknown Urine WBC (Auto) 1.0 /HPF (0.0-6.0) 07/04/18 Unknown Urine RBC (Auto) 21.0 /HPF (0.0-6.0) 07/04/18 Unknown U Epithel Cells (Auto) 1.0 /HPF (0-13.0) 07/04/18 Unknown Urine Mucus Few /HPF 07/04/18 Unknown Nutrition/Malnutrition Assess - Dietary Evaluation Nutrition/Malnutrition Findings: Nutrition Notes Start: 07/05/18 12:32 Freq: Status: Active Protocol: Document 07/05/18 12:35 SYEDA (Rec: 07/05/18 13:00 SYEDA [email or web address]) Co-Sign 07/05/18 12:35 LP Nutrition Notes Need for Assessment generated from: MD Order Initial or Follow up Assessment Current Diagnosis COPD Diabetes Hypertension Respiratory Failure Other Pertinent Diagnosis Hx of tobacco use, Opiate dependence, depression Current Diet No diet ordered Labs/Tests Reviewed. Height 5 ft 6 in Weight 84 kg [place] Body Weight (lbs) 130.0 BMI 29.9 Subjective/Other Information MD consult for evaluation of nutritional intake. During interdisciplinary rounds, MD requested TF reccomendations in case pt. is not extubated. Percent of energy/protein needs met: 0%/0% Burn Absent Trauma Absent Current % PO NEGLIGIBLE #1 Nutrition Diagnosis Inadequate oral intake Etiology Vent As Evidenced by Signs and Symptoms NPO status Is patient on ventilator? Yes Is Patient Ambulatory and/or Out of Bed No REE-([facility]-confined to bed) 1746.372 Calculation Used for Recommendations [facility] Additional Notes Pro needs: 101-168g/day (1.2- 2g/kg BW) Fluid needs: 1 ml/kcal Nutrition Intervention Change Diet Order: Advance as medically feasible Nutrition Support: Vital AF at 60 ml/hr. Provide 90 ml flushes q4h. Kcal 1,728 Protein (gm) 108 Fluid (mL) 1,752 Goal #1 Initiate TF if not extubated per MD Goal #2 Diet advancement per MD Anticipated Discharge Needs: unable to determine at this time Follow-Up By: 07/08/18 Additional Comments f/u: diet advancement, TF initiation
[2018-07-06] MEDS: CORDARONE 900 MG in D5W 482 ML IV SCH (13:59)
[2018-07-06] MEDS ORDERED: CORDARONE 150 MG in D5W 97 ML IV ONE (14:11)
--- NOTE | 2018-07-06 17:58 | Progress Note ---
Assessment and Plan Acute on Chronic Hypercapnic Respiratory Failure Acute COPD exacerbation Cardiac Arrest with ROSC Chronic Pain Syndrome Substance Abuse Tobacco abuse disorder Obesity - continue supplemental oxygen to keep sats > 90% - aspiration precautions - continue bronchodilators with pulmonary hygiene per RT - continue VTE & stress ulcer prophylaxis - continue empiric antibiotics to complete course -PT/OT to evaluate and treat -Smoking cessation counselling done at the bedside - continue other care per attending / other consultants Subjective Date of service: 07/06/18 Principal diagnosis: Ac on Chr Hypercapnic Resp Failure; AE-COPD; Cardiac Arrest with ROSC Interval history: Patient is seen today for: Acute on Chronic Hypercapnic Respiratory Failure; Acute COPD exacerbation; Cardiac Arrest with ROSC Seen and examined at bedside; 24hour events reviewed; nursing and respiratory care staff consulted; no adverse overnight events reported to me;noted to go into Afib with RVR this afternoon, requiring amidarone infusion; she is resting peacefully in bed ; denies acute uncontrolled pain; No N/V/F/C; no seizures Objective Vital Signs - 12hr 07/06/18 07/06/18 07/06/18 06:00 06:10 06:20 Pulse Rate 81 82 76 Pulse Rate [ Anterior Bilateral Throughout] Respiratory 24 30 H 27 H Rate Respiratory Rate [Anterior Bilateral Throughout] Blood Pressure 126/80 126/80 126/80 O2 Sat by Pulse 99 100 99 Oximetry 07/06/18 07/06/18 07/06/18 06:30 06:40 06:50 Pulse Rate 86 76 72 Pulse Rate [ Anterior Bilateral Throughout] Respiratory 27 H 23 25 H Rate Respiratory Rate [Anterior Bilateral Throughout] Blood Pressure 126/80 126/80 126/80 O2 Sat by Pulse 99 99 99 Oximetry 07/06/18 07/06/18 07/06/18 07:00 07:10 07:20 Pulse Rate 66 72 66 Pulse Rate [ Anterior Bilateral Throughout] Respiratory 22 22 20 Rate Respiratory Rate [Anterior Bilateral Throughout] Blood Pressure 122/70 122/70 122/70 O2 Sat by Pulse 99 100 100 Oximetry 07/06/18 07/06/18 07/06/18 07:30 07:40 07:50 Pulse Rate 69 72 70 Pulse Rate [ Anterior Bilateral Throughout] Respiratory 23 20 20 Rate Respiratory Rate [Anterior Bilateral Throughout] Blood Pressure 122/70 122/70 122/70 O2 Sat by Pulse 100 100 100 Oximetry 07/06/18 07/06/18 07/06/18 08:00 08:10 08:20 Pulse Rate 72 71 68 Pulse Rate [ Anterior Bilateral Throughout] Respiratory 21 21 20 Rate Respiratory Rate [Anterior Bilateral Throughout] Blood Pressure 122/78 122/78 122/70 O2 Sat by Pulse 99 100 100 Oximetry 07/06/18 07/06/18 07/06/18 08:30 08:40 08:50 Pulse Rate 73 80 70 Pulse Rate [ Anterior Bilateral Throughout] Respiratory 19 28 H 21 Rate Respiratory Rate [Anterior Bilateral Throughout] Blood Pressure 122/70 122/70 122/78 O2 Sat by Pulse 100 99 99 Oximetry 07/06/18 07/06/18 07/06/18 09:00 09:10 09:20 Pulse Rate 73 70 72 Pulse Rate [ Anterior Bilateral Throughout] Respiratory 20 19 23 Rate Respiratory Rate [Anterior Bilateral Throughout] Blood Pressure 123/76 123/76 122/78 O2 Sat by Pulse 96 99 100 Oximetry 07/06/18 07/06/18 07/06/18 09:30 09:40 09:41 Pulse Rate 70 70 Pulse Rate [ 77 Anterior Bilateral Throughout] Respiratory 23 22 Rate Respiratory 20 Rate [Anterior Bilateral Throughout] Blood Pressure 122/78 122/78 O2 Sat by Pulse 100 100 Oximetry 07/06/18 07/06/18 07/06/18 09:50 10:00 10:07 Pulse Rate 76 87 Pulse Rate [ 84 Anterior Bilateral Throughout] Respiratory 23 17 Rate Respiratory 20 Rate [Anterior Bilateral Throughout] Blood Pressure 123/76 123/80 O2 Sat by Pulse 98 98 Oximetry 07/06/18 07/06/18 07/06/18 10:09 10:10 10:20 Pulse Rate 89 145 H Pulse Rate [ Anterior Bilateral Throughout] Respiratory 20 19 Rate Respiratory Rate [Anterior Bilateral Throughout] Blood Pressure 123/80 123/80 O2 Sat by Pulse 97 96 96 Oximetry 07/06/18 07/06/18 07/06/18 10:39 10:40 10:50 Pulse Rate 176 H 84 168 H Pulse Rate [ Anterior Bilateral Throughout] Respiratory 25 H 27 H 23 Rate Respiratory Rate [Anterior Bilateral Throughout] Blood Pressure 123/80 O2 Sat by Pulse 92 91 92 Oximetry 07/06/18 07/06/18 07/06/18 11:00 11:10 11:49 Pulse Rate 158 H 162 H 160 H Pulse Rate [ Anterior Bilateral Throughout] Respiratory 22 18 Rate Respiratory Rate [Anterior Bilateral Throughout] Blood Pressure 123/80 85/69 99/74 O2 Sat by Pulse 93 93 Oximetry 07/06/18 07/06/18 14:01 14:19 Pulse Rate Pulse Rate [ 77 83 Anterior Bilateral Throughout] Respiratory Rate Respiratory 20 20 Rate [Anterior Bilateral Throughout] Blood Pressure O2 Sat by Pulse Oximetry Constitutional: no acute distress, other (middle aged CF, normocephalic and atraumatic with mildly increased resp effort at rest) Eyes: non-icteric ENT: oropharynx moist Neck: supple, no lymphadenopathy, no JVD Effort: mildly labored Ascultation: Bilateral: diminished breath sounds, rhonchi Percussion: Bilateral: not dull Cardiovascular: other (Irregular, S1,S2) Gastrointestinal: normoactive bowel sounds, soft, non-tender, non-distended Integumentary: normal Extremities: no cyanosis, no edema, pink and warm, pulses normal Neurologic: normal mental status, non-focal exam, pupils equal and round, motor strength normal and Psychiatric: mood appropriate, anxious CBC and BMP: 07/06/18 04:15 07/06/18 04:15 ABG, PT/INR, D-dimer: ABG POC ABG pH 7.394 (7.35-7.45) 07/05/18 14:36 POC ABG pCO2 58.7 (35-45) H 07/05/18 14:36 POC ABG pO2 92 (80-105) 07/05/18 14:36 POC ABG HCO3 35.8 07/05/18 14:36 POC ABG Total CO2 38 07/05/18 14:36 POC ABG O2 Sat 97 07/05/18 14:36 PT/INR, D-dimer PT 14.5 Sec. (12.2-14.9) 07/04/18 12:38 INR 1.09 (0.87-1.13) 07/04/18 12:38 D-Dimer 742.18 ng/mlDDU (0-234) H 07/05/18 12:45 Abnormal lab findings: Abnormal Labs 07/04/18 07/04/18 07/04/18 12:38 12:38 13:13 WBC 15.4 H Hgb 14.9 H Hct 44.2 H MCV 103 H MCH 35 H RDW 15.6 H Plt Count Lymph % (Auto) [place] % (Auto) 8.5 H Lymph # [place] # 1.3 H Seg Neutrophils % 75.1 H Seg Neutrophils # 11.5 H D-Dimer POC ABG pCO2 POC ABG pO2 Chloride 95.3 L Carbon Dioxide BUN Creatinine Glucose 187 H Lactic Acid 3.10 H* Calcium C-Reactive Protein NT-Pro-B Natriuret Pep 1969 H 07/04/18 07/05/18 07/05/18 14:11 05:43 12:45 WBC Hgb Hct MCV 102 H MCH 35 H RDW 15.4 H Plt Count 85 L Lymph % (Auto) 9.1 L [place] % (Auto) Lymph # 0.9 L [place] # Seg Neutrophils % 83.5 H Seg Neutrophils # 8.5 H D-Dimer POC ABG pCO2 61.5 H 46.5 H POC ABG pO2 479 H Chloride Carbon Dioxide BUN Creatinine Glucose Lactic Acid Calcium C-Reactive Protein NT-Pro-B Natriuret Pep 07/05/18 07/05/18 07/05/18 12:45 12:45 14:36 WBC Hgb Hct MCV MCH RDW Plt Count Lymph % (Auto) [place] % (Auto) Lymph # [place] # Seg Neutrophils % Seg Neutrophils # D-Dimer 742.18 H POC ABG pCO2 58.7 H POC ABG pO2 Chloride Carbon Dioxide 33 H D BUN 24 H Creatinine Glucose 145 H Lactic Acid Calcium 7.8 L C-Reactive Protein 15.00 H NT-Pro-B Natriuret Pep 07/06/18 07/06/18 04:15 04:15 WBC Hgb Hct MCV 104 H MCH 35 H RDW 15.3 H Plt Count 139 L Lymph % (Auto) [place] % (Auto) Lymph # [place] # Seg Neutrophils % Seg Neutrophils # D-Dimer POC ABG pCO2 POC ABG pO2 Chloride Carbon Dioxide 35 H BUN Creatinine 0.5 L Glucose 139 H Lactic Acid Calcium 8.2 L C-Reactive Protein NT-Pro-B Natriuret Pep Chest x-ray: image reviewed (No acute pulonary infiltrates) Allied health notes reviewed: nursing
[2018-07-07] MEDS: TORADOL IV PRN ×3 (04:23→20:10)
[2018-07-07] MEDS: PULMICORT IH SCH ×2 (08:25→20:44)
[2018-07-07] MEDS: DUONEB *Not for PRN Use IH SCH ×3 (08:25→20:44)
[2018-07-07] MEDS: BROVANA NEBU IH SCH ×2 (08:29→20:44)
[2018-07-07] MEDS: CORDARONE 900 MG in D5W 482 ML IV SCH (09:01)
[2018-07-07] MEDS: PEPCID IV SCH ×2 (10:03→21:41)
[2018-07-07] MEDS: LOVENOX SUB-Q SCH (10:03)
[2018-07-07] MEDS: LEVAQUIN 750MG/150ML 750 MG/150 ML BAG IV SCH (10:03)
[2018-07-07] MEDS: SODIUM CHLORIDE FLUSH SYRINGE 10 ML IV SCH ×2 (10:04→21:41)
--- NOTE | 2018-07-07 14:42 | Progress Note ---
Assessment and Plan Patient alert, awake. says breathing some what better. Still Complaining productive cough with yellow sputum. On 3 litres O2. O2 saturation 96%. Patient still smoking. Counselled to stop smoking. Patient is on Home O2. - Patient Problems (1) Acute on chronic respiratory failure Current Visit: Yes Status: Acute Plan to address problem: O2 3 litres via nasal canula Brovanna/Budesonide aerosol treatments q 6 hours. Albuterol/atrovent aerosol treatments q 6 hours Prn for shortness of breath. Continue levaquin Continue S/C Lovenox. Continue famotidine (2) COPD (chronic obstructive pulmonary disease) Current Visit: Yes Status: Chronic Plan to address problem: O2 3 litres via nasal canula Brovanna/Budesonide aerosol treatments q 6 hours. Albuterol/atrovent aerosol treatments q 6 hours Prn for shortness of breath. Continue levaquin Continue S/C Lovenox. Continue famotidine (3) CHF (congestive heart failure) Current Visit: Yes Status: Acute Qualifiers: Heart failure chronicity: acute Plan to address problem: Management as per cardiology. (4) CAD (coronary artery disease) Current Visit: Yes Status: Chronic Plan to address problem: Management as per cardiology. (5) HTN (hypertension) Current Visit: Yes Status: Chronic Plan to address problem: Management as per primary care. Subjective Date of service: 07/07/18 Principal diagnosis: Ac on Chr Hypercapnic Resp Failure; AE-COPD; Cardiac Arrest with ROSC Interval history: Patient alert, awake. says breathing some what better. Still Complaining productive cough with yellow sputum. On 3 litres O2. O2 saturation 96%. Patient still smoking. Counselled to stop smoking. Patient is on Home O2. Objective Vital Signs - 12hr 07/07/18 07/07/18 07/07/18 02:40 02:50 03:00 Temperature Pulse Rate 70 74 70 Pulse Rate [ Anterior Bilateral Throughout] Pulse Rate [ From Monitor] Respiratory 21 19 18 Rate Respiratory Rate [Anterior Bilateral Throughout] Blood Pressure 135/87 135/87 132/83 O2 Sat by Pulse 99 99 99 Oximetry 07/07/18 07/07/18 07/07/18 03:10 03:20 03:30 Temperature Pulse Rate 76 68 70 Pulse Rate [ Anterior Bilateral Throughout] Pulse Rate [ From Monitor] Respiratory 19 20 21 Rate Respiratory Rate [Anterior Bilateral Throughout] Blood Pressure 132/83 132/83 135/87 O2 Sat by Pulse 99 98 97 Oximetry 07/07/18 07/07/18 07/07/18 03:40 03:50 04:00 Temperature Pulse Rate 71 67 65 Pulse Rate [ Anterior Bilateral Throughout] Pulse Rate [ From Monitor] Respiratory 22 14 16 Rate Respiratory Rate [Anterior Bilateral Throughout] Blood Pressure 135/87 135/87 131/79 O2 Sat by Pulse 99 98 98 Oximetry 07/07/18 07/07/18 07/07/18 04:10 04:20 04:30 Temperature Pulse Rate 70 69 68 Pulse Rate [ Anterior Bilateral Throughout] Pulse Rate [ From Monitor] Respiratory 22 20 18 Rate Respiratory Rate [Anterior Bilateral Throughout] Blood Pressure 131/79 131/79 132/83 O2 Sat by Pulse 99 99 100 Oximetry 07/07/18 07/07/18 07/07/18 04:40 04:50 05:00 Temperature Pulse Rate 70 72 68 Pulse Rate [ Anterior Bilateral Throughout] Pulse Rate [ From Monitor] Respiratory 22 20 20 Rate Respiratory Rate [Anterior Bilateral Throughout] Blood Pressure 132/83 132/83 132/83 O2 Sat by Pulse 99 98 99 Oximetry 07/07/18 07/07/18 07/07/18 05:10 05:20 05:30 Temperature Pulse Rate 69 70 69 Pulse Rate [ Anterior Bilateral Throughout] Pulse Rate [ From Monitor] Respiratory 21 21 23 Rate Respiratory Rate [Anterior Bilateral Throughout] Blood Pressure 134/79 134/79 134/79 O2 Sat by Pulse 100 100 98 Oximetry 07/07/18 07/07/18 07/07/18 05:40 05:50 06:00 Temperature Pulse Rate 70 70 69 Pulse Rate [ Anterior Bilateral Throughout] Pulse Rate [ From Monitor] Respiratory 23 20 16 Rate Respiratory Rate [Anterior Bilateral Throughout] Blood Pressure 134/79 134/79 139/85 O2 Sat by Pulse 99 100 100 Oximetry 07/07/18 07/07/18 07/07/18 06:10 06:20 06:30 Temperature Pulse Rate 69 73 76 Pulse Rate [ Anterior Bilateral Throughout] Pulse Rate [ From Monitor] Respiratory 21 22 17 Rate Respiratory Rate [Anterior Bilateral Throughout] Blood Pressure 139/85 139/85 139/85 O2 Sat by Pulse 99 99 98 Oximetry 07/07/18 07/07/18 07/07/18 06:40 06:50 07:00 Temperature Pulse Rate 79 80 77 Pulse Rate [ Anterior Bilateral Throughout] Pulse Rate [ From Monitor] Respiratory 30 H 21 22 Rate Respiratory Rate [Anterior Bilateral Throughout] Blood Pressure 139/85 139/85 139/85 O2 Sat by Pulse 95 99 97 Oximetry 07/07/18 07/07/18 07/07/18 07:10 07:20 07:30 Temperature Pulse Rate 79 68 Pulse Rate [ Anterior Bilateral Throughout] Pulse Rate [ From Monitor] Respiratory 17 Rate Respiratory Rate [Anterior Bilateral Throughout] Blood Pressure 124/78 124/78 124/78 O2 Sat by Pulse 97 95 84 Oximetry 07/07/18 07/07/18 07/07/18 07:40 07:45 07:50 Temperature Pulse Rate 67 67 Pulse Rate [ 70 Anterior Bilateral Throughout] Pulse Rate [ From Monitor] Respiratory 21 22 Rate Respiratory 18 Rate [Anterior Bilateral Throughout] Blood Pressure 124/78 124/78 O2 Sat by Pulse 98 98 Oximetry 07/07/18 07/07/18 07/07/18 07:55 08:00 08:10 Temperature 98.1 F Pulse Rate 61 74 Pulse Rate [ 72 Anterior Bilateral Throughout] Pulse Rate [ 66 From Monitor] Respiratory 20 23 Rate Respiratory 18 Rate [Anterior Bilateral Throughout] Blood Pressure 139/86 139/86 O2 Sat by Pulse 96 95 Oximetry 07/07/18 07/07/18 07/07/18 08:20 08:30 08:40 Temperature Pulse Rate 77 72 69 Pulse Rate [ Anterior Bilateral Throughout] Pulse Rate [ From Monitor] Respiratory 20 19 25 H Rate Respiratory Rate [Anterior Bilateral Throughout] Blood Pressure 139/86 139/86 139/86 O2 Sat by Pulse 96 97 98 Oximetry 07/07/18 07/07/18 07/07/18 08:50 09:00 09:10 Temperature Pulse Rate 68 72 73 Pulse Rate [ Anterior Bilateral Throughout] Pulse Rate [ From Monitor] Respiratory 22 22 23 Rate Respiratory Rate [Anterior Bilateral Throughout] Blood Pressure 139/86 127/73 127/73 O2 Sat by Pulse 99 95 97 Oximetry 07/07/18 07/07/18 07/07/18 09:20 09:30 09:40 Temperature Pulse Rate 71 74 81 Pulse Rate [ Anterior Bilateral Throughout] Pulse Rate [ From Monitor] Respiratory 20 22 29 H Rate Respiratory Rate [Anterior Bilateral Throughout] Blood Pressure 127/73 127/73 127/73 O2 Sat by Pulse 98 97 96 Oximetry 07/07/18 07/07/18 07/07/18 09:50 10:00 10:10 Temperature Pulse Rate 81 82 71 Pulse Rate [ Anterior Bilateral Throughout] Pulse Rate [ From Monitor] Respiratory 32 H 28 H 20 Rate Respiratory Rate [Anterior Bilateral Throughout] Blood Pressure 127/73 127/73 154/92 O2 Sat by Pulse 94 93 94 Oximetry 07/07/18 07/07/18 07/07/18 10:20 10:30 10:40 Temperature Pulse Rate 71 75 74 Pulse Rate [ Anterior Bilateral Throughout] Pulse Rate [ From Monitor] Respiratory 18 19 20 Rate Respiratory Rate [Anterior Bilateral Throughout] Blood Pressure 154/92 154/92 154/92 O2 Sat by Pulse 95 96 97 Oximetry 07/07/18 07/07/18 07/07/18 10:50 11:00 11:10 Temperature Pulse Rate 79 71 80 Pulse Rate [ Anterior Bilateral Throughout] Pulse Rate [ From Monitor] Respiratory 19 24 17 Rate Respiratory Rate [Anterior Bilateral Throughout] Blood Pressure 154/92 161/86 161/86 O2 Sat by Pulse 97 98 97 Oximetry 07/07/18 07/07/18 07/07/18 11:20 11:30 11:40 Temperature Pulse Rate 77 75 80 Pulse Rate [ Anterior Bilateral Throughout] Pulse Rate [ From Monitor] Respiratory 24 16 Rate Respiratory Rate [Anterior Bilateral Throughout] Blood Pressure 161/86 161/86 161/86 O2 Sat by Pulse 98 98 94 Oximetry 07/07/18 07/07/18 07/07/18 11:50 12:00 12:10 Temperature 98.1 F Pulse Rate 81 90 88 Pulse Rate [ Anterior Bilateral Throughout] Pulse Rate [ 71 From Monitor] Respiratory 20 20 18 Rate Respiratory Rate [Anterior Bilateral Throughout] Blood Pressure 161/86 160/101 160/101 O2 Sat by Pulse 97 94 98 Oximetry 07/07/18 07/07/18 07/07/18 12:20 12:30 12:40 Temperature Pulse Rate 85 77 81 Pulse Rate [ Anterior Bilateral Throughout] Pulse Rate [ From Monitor] Respiratory 17 Rate Respiratory Rate [Anterior Bilateral Throughout] Blood Pressure 160/101 160/101 160/101 O2 Sat by Pulse 95 97 96 Oximetry 07/07/18 07/07/18 07/07/18 12:50 13:00 13:10 Temperature Pulse Rate 72 72 72 Pulse Rate [ Anterior Bilateral Throughout] Pulse Rate [ From Monitor] Respiratory 20 21 Rate Respiratory Rate [Anterior Bilateral Throughout] Blood Pressure 160/101 150/88 160/101 O2 Sat by Pulse 100 97 98 Oximetry 07/07/18 07/07/18 07/07/18 13:20 13:30 13:40 Temperature Pulse Rate 73 89 73 Pulse Rate [ Anterior Bilateral Throughout] Pulse Rate [ From Monitor] Respiratory 16 18 19 Rate Respiratory Rate [Anterior Bilateral Throughout] Blood Pressure 160/101 160/101 160/101 O2 Sat by Pulse 97 97 97 Oximetry 07/07/18 07/07/18 14:15 14:22 Temperature Pulse Rate Pulse Rate [ 73 77 Anterior Bilateral Throughout] Pulse Rate [ From Monitor] Respiratory Rate Respiratory 18 14 Rate [Anterior Bilateral Throughout] Blood Pressure O2 Sat by Pulse Oximetry Constitutional: no acute distress, alert, other (middle aged CF, normocephalic and atraumatic with mildly increased resp effort at rest) Eyes: non-icteric ENT: oropharynx moist Neck: supple, no lymphadenopathy, no JVD Effort: mildly labored Ascultation: Bilateral: diminished breath sounds, rhonchi Percussion: Bilateral: not dull Cardiovascular: other (Irregular, S1,S2) Gastrointestinal: normoactive bowel sounds, soft, non-tender, non-distended Integumentary: normal Extremities: no cyanosis, no edema, pink and warm, pulses normal Neurologic: normal mental status, non-focal exam, pupils equal and round, motor strength normal and Psychiatric: mood appropriate, anxious CBC and BMP: 07/06/18 04:15 07/06/18 04:15 ABG, PT/INR, D-dimer: ABG POC ABG pH 7.394 (7.35-7.45) 07/05/18 14:36 POC ABG pCO2 58.7 (35-45) H 07/05/18 14:36 POC ABG pO2 92 (80-105) 07/05/18 14:36 POC ABG HCO3 35.8 07/05/18 14:36 POC ABG Total CO2 38 07/05/18 14:36 POC ABG O2 Sat 97 07/05/18 14:36 PT/INR, D-dimer PT 14.5 Sec. (12.2-14.9) 07/04/18 12:38 INR 1.09 (0.87-1.13) 07/04/18 12:38 D-Dimer 742.18 ng/mlDDU (0-234) H 07/05/18 12:45 Abnormal lab findings: Abnormal Labs 07/04/18 07/04/18 07/04/18 12:38 12:38 13:13 WBC 15.4 H Hgb 14.9 H Hct 44.2 H MCV 103 H MCH 35 H RDW 15.6 H Plt Count Lymph % (Auto) Green % (Auto) 8.5 H Lymph # Green # 1.3 H Seg Neutrophils % 75.1 H Seg Neutrophils # 11.5 H D-Dimer POC ABG pCO2 POC ABG pO2 Chloride 95.3 L Carbon Dioxide BUN Creatinine Glucose 187 H POC Glucose Lactic Acid 3.10 H* Calcium C-Reactive Protein NT-Pro-B Natriuret Pep 1969 H 07/04/18 07/05/18 07/05/18 14:11 05:43 12:45 WBC Hgb Hct MCV 102 H MCH 35 H RDW 15.4 H Plt Count 85 L Lymph % (Auto) 9.1 L Green % (Auto) Lymph # 0.9 L Green # Seg Neutrophils % 83.5 H Seg Neutrophils # 8.5 H D-Dimer POC ABG pCO2 61.5 H 46.5 H POC ABG pO2 479 H Chloride Carbon Dioxide BUN Creatinine Glucose POC Glucose Lactic Acid Calcium C-Reactive Protein NT-Pro-B Natriuret Pep 07/05/18 07/05/18 07/05/18 12:45 12:45 14:36 WBC Hgb Hct MCV MCH RDW Plt Count Lymph % (Auto) Green % (Auto) Lymph # Green # Seg Neutrophils % Seg Neutrophils # D-Dimer 742.18 H POC ABG pCO2 58.7 H POC ABG pO2 Chloride Carbon Dioxide 33 H D BUN 24 H Creatinine Glucose 145 H POC Glucose Lactic Acid Calcium 7.8 L C-Reactive Protein 15.00 H NT-Pro-B Natriuret Pep 07/06/18 07/06/18 07/06/18 04:15 04:15 21:24 WBC Hgb Hct MCV 104 H MCH 35 H RDW 15.3 H Plt Count 139 L Lymph % (Auto) Green % (Auto) Lymph # Green # Seg Neutrophils % Seg Neutrophils # D-Dimer POC ABG pCO2 POC ABG pO2 Chloride Carbon Dioxide 35 H BUN Creatinine 0.5 L Glucose 139 H POC Glucose 157 H Lactic Acid Calcium 8.2 L C-Reactive Protein NT-Pro-B Natriuret Pep 07/07/18 11:48 WBC Hgb Hct MCV MCH RDW Plt Count Lymph % (Auto) Green % (Auto) Lymph # Green # Seg Neutrophils % Seg Neutrophils # D-Dimer POC ABG pCO2 POC ABG pO2 Chloride Carbon Dioxide BUN Creatinine Glucose POC Glucose 161 H Lactic Acid Calcium C-Reactive Protein NT-Pro-B Natriuret Pep Chest x-ray: report reviewed (No acute findings. Basilar atelectasis or scarring.), image reviewed Allied health notes reviewed: nursing
--- NOTE | 2018-07-07 15:22 | Progress Note ---
Assessment and Plan Assessment and plan: 57 YO Female with COPD, Chronic Respiratory Failure on 4L Home Oxygen, DM, Depression, Opiate Dependence, Nicotine Dependence presents to ED for evaluation. Pt was seen and evaluated at a [facility] center and was found to have Acute Hypoxemic Respiratory Failure and was subsequently intubated and placed on vent support . Pt also experienced cardiac arrest and was treated IAW ACLS protocol with return of perfusing rhythm as per [place] staff. EMS was notified, and upon arrival patient was found to be in distress, but with perfusing cardiac rhythm. Pt transported to [facility] for further care and evaluation. Pt self extubated en route to [facility]. Pt seen and evaluated in ED and subsequently reintubated and placed on vent support. Pt found to have Acute Respiratory Failure, Sepsis, and Acidosis, and New onset CHF. Pt admitted to ICU. Discussed care plan with daughter, who reports that patient is DNR and does not wish to be intubated. Pt daughter requests extubation and comfort care measures. Awaiting family to sign DNR/AND declaration. Family at bedside today wants us to evalute if patient can be extubated and if not change to hospice by Sunday. (1) Sepsis Current Visit: Yes Status: Acute Qualifiers: Sepsis type: sepsis due to unspecified organism Qualified Code(s): A41.9 - Sepsis, unspecified organism Plan to address problem: IV antibiotic therapy, CBC, CMP, IV antibiotic therapy, blood cultures, chest x ray, urinalysis, monitor uop q shift, serial lactic acid (2) Paroxysmal atrial fibrillation Current Visit: Yes Status: Chronic Cardiology input noted. cardizem 10mg iv trial Started on Amiodarone drip and tolerating (3)CHF (congestive heart failure) Current Visit: Yes Status: Acute Qualifiers: Heart failure chronicity: acute Plan to address problem: Admit to ICU, supportive care, Pt found to have poor prognosis. Pt family request comfort care measures. (4) Acute on chronic respiratory failure with hypercapnia Current Visit: No Status: Acute Plan to address problem: Pt intubated, sedated, on vent support. Pt family request extubation, and initiation of comfort care measures. (5)Type 2 diabetes mellitus Current Visit: Yes Status: Chronic Qualifiers: Diabetes mellitus rodent exterminator insulin use: without rodent exterminator use Diabetes mellitus complication status: without complication Qualified Code(s): E11.9 - Type 2 diabetes mellitus without complications (6) Acidosis Current Visit: Yes Status: Acute Plan to address problem: IVF resuscitation therapy, monitor uop q shift, serial lactic acid (7) DVT prophylaxis Current Visit: No Status: Acute Plan to address problem: SCD to BLE while in bed. cct 45mins Plan discharge with hospice if successful weaned of GTT. Plan discussed with patient and she wants to think about hospice but agreeable to home health History Interval history: Patient seen and examined this am. Now extubated, no new complaints at the time of my exam. HR stable with Amiodarone drip Hospitalist Physical - Physical exam Narrative exam: General appearance: Present: awake alert, some cough non productive - EENT Eyes: Present: miosis - Neck Neck: Present: supple, normal ROM - Respiratory Respiratory effort:normal Respiratory: bilateral: diminished, rhonchi - Cardiovascular Heart Sounds: Present: S1 & S2. Absent: rub, click - Extremities Extremities: no ischemia Extremity abnormal: edema Peripheral Pulses: abnormal - Abdominal General gastrointestinal: Present: soft, non-tender, non-distended, normal bowel sounds Female genitourinary: Present: normal - Integumentary Integumentary: Present: clear, dry, decreased turgor - Musculoskeletal Musculoskeletal: generalized weakness - Psychiatric Psychiatric: appropriate mood/affect, intact judgment & insight, memory intact - Neurologic Neurologic: anxious - Constitutional Vitals: Temp Pulse Resp BP Pulse Ox 98.1 F 77 14 160/101 97 07/07/18 12:00 07/07/18 14:22 07/07/18 14:22 07/07/18 13:40 07/07/18 13:40 General appearance: Present: other (intubated, sedated) Results - Labs CBC & Chem 7: 07/06/18 04:15 07/06/18 04:15 Labs: Laboratory Last Values WBC 10.8 K/mm3 (4.5-11.0) 07/06/18 04:15 RBC 3.82 M/mm3 (3.65-5.03) 07/06/18 04:15 Hgb 13.3 gm/dl (10.1-14.3) 07/06/18 04:15 Hct 39.6 % (30.3-42.9) 07/06/18 04:15 MCV 104 fl (79-97) H 07/06/18 04:15 MCH 35 pg (28-32) H 07/06/18 04:15 MCHC 34 % (30-34) 07/06/18 04:15 RDW 15.3 % (13.2-15.2) H 07/06/18 04:15 Plt Count 139 K/mm3 (140-440) L 07/06/18 04:15 Lymph % (Auto) 9.1 % (13.4-35.0) L 07/05/18 12:45 [place] % (Auto) 7.3 % (0.0-7.3) 07/05/18 12:45 Eos % (Auto) 0.0 % (0.0-4.3) 07/05/18 12:45 Baso % (Auto) 0.1 % (0.0-1.8) 07/05/18 12:45 Lymph # 0.9 K/mm3 (1.2-5.4) L 07/05/18 12:45 [place] # 0.7 K/mm3 (0.0-0.8) 07/05/18 12:45 Eos # 0.0 K/mm3 (0.0-0.4) 07/05/18 12:45 Baso # 0.0 K/mm3 (0.0-0.1) 07/05/18 12:45 Seg Neutrophils % 83.5 % (40.0-70.0) H 07/05/18 12:45 Seg Neutrophils # 8.5 K/mm3 (1.8-7.7) H 07/05/18 12:45 PT 14.5 Sec. (12.2-14.9) 07/04/18 12:38 INR 1.09 (0.87-1.13) 07/04/18 12:38 APTT 29.0 Sec. (24.2-36.6) 07/04/18 12:38 D-Dimer 742.18 ng/mlDDU (0-234) H 07/05/18 12:45 POC ABG pH 7.394 (7.35-7.45) 07/05/18 14:36 POC ABG pCO2 58.7 (35-45) H 07/05/18 14:36 POC ABG pO2 92 (80-105) 07/05/18 14:36 POC ABG HCO3 35.8 07/05/18 14:36 POC ABG Total CO2 38 07/05/18 14:36 POC ABG O2 Sat 97 07/05/18 14:36 POC ABG Base Excess 11 07/05/18 14:36 FiO2 40 % 07/05/18 14:36 Sodium 142 mmol/L (137-145) 07/06/18 04:15 Potassium 4.1 mmol/L (3.6-5.0) 07/06/18 04:15 Chloride 100.9 mmol/L (98-107) 07/06/18 04:15 Carbon Dioxide 35 mmol/L (22-30) H 07/06/18 04:15 Anion Gap 10 mmol/L 07/06/18 04:15 BUN 16 mg/dL (7-17) 07/06/18 04:15 Creatinine 0.5 mg/dL (0.7-1.2) L 07/06/18 04:15 Estimated GFR > 60 ml/min 07/06/18 04:15 BUN/Creatinine Ratio 32 % 07/06/18 04:15 Glucose 139 mg/dL (65-100) H 07/06/18 04:15 POC Glucose 161 (70-105) H 07/07/18 11:48 Lactic Acid 0.90 mmol/L (0.7-2.0) 07/04/18 21:07 Calcium 8.2 mg/dL (8.4-10.2) L 07/06/18 04:15 Troponin T < 0.010 ng/mL (0.00-0.029) 07/04/18 12:38 C-Reactive Protein 15.00 mg/dL (0.00-1.30) H 07/05/18 12:45 NT-Pro-B Natriuret Pep 1969 pg/mL (0-900) H 07/04/18 12:38 Urine Color Yellow (Yellow) 07/04/18 Unknown Urine Turbidity Clear (Clear) 07/04/18 Unknown Urine pH 6.0 (5.0-7.0) 07/04/18 Unknown Ur Specific [place] 1.017 (1.003-1.030) 07/04/18 Unknown Urine Protein 100 mg/dl mg/dL (Negative) 07/04/18 Unknown Urine Glucose (UA) 50 mg/dL (Negative) 07/04/18 Unknown Urine Ketones Tr mg/dL (Negative) 07/04/18 Unknown Urine Blood Mod (Negative) 07/04/18 Unknown Urine Nitrite Neg (Negative) 07/04/18 Unknown Urine Bilirubin Neg (Negative) 07/04/18 Unknown Urine Urobilinogen < 2.0 mg/dL (<2.0) 07/04/18 Unknown Ur Leukocyte Esterase Neg (Negative) 07/04/18 Unknown Urine WBC (Auto) 1.0 /HPF (0.0-6.0) 07/04/18 Unknown Urine RBC (Auto) 21.0 /HPF (0.0-6.0) 07/04/18 Unknown U Epithel Cells (Auto) 1.0 /HPF (0-13.0) 07/04/18 Unknown Urine Mucus Few /HPF 07/04/18 Unknown Nutrition/Malnutrition Assess - Dietary Evaluation Nutrition/Malnutrition Findings: Nutrition Notes Start: 07/05/18 12:32 Freq: Status: Active Protocol: Document 07/05/18 12:35 (Rec: 07/05/18 13:00 [email or web address]) Co-Sign 07/05/18 12:35 LP Nutrition Notes Need for Assessment generated from: MD Order Initial or Follow up Assessment Current Diagnosis COPD Diabetes Hypertension Respiratory Failure Other Pertinent Diagnosis Hx of tobacco use, Opiate dependence, depression Current Diet No diet ordered Labs/Tests Reviewed. Height 5 ft 6 in Weight 84 kg Elizabeth Body Weight (lbs) 130.0 BMI 29.9 Subjective/Other Information MD consult for evaluation of nutritional intake. During interdisciplinary rounds, MD requested TF reccomendations in case pt. is not extubated. Percent of energy/protein needs met: 0%/0% Burn Absent Trauma Absent Current % PO NEGLIGIBLE #1 Nutrition Diagnosis Inadequate oral intake Etiology Vent As Evidenced by Signs and Symptoms NPO status Is patient on ventilator? Yes Is Patient Ambulatory and/or Out of Bed No REE-([facility]-confined to bed) 9033.851 Calculation Used for Recommendations [facility] Additional Notes Pro needs: 101-168g/day (1.2- 2g/kg BW) Fluid needs: 1 ml/kcal Nutrition Intervention Change Diet Order: Advance as medically feasible Nutrition Support: Vital AF at 60 ml/hr. Provide 90 ml flushes q4h. Kcal 1,728 Protein (gm) 108 Fluid (mL) 1,752 Goal #1 Initiate TF if not extubated per MD Goal #2 Diet advancement per MD Anticipated Discharge Needs: unable to determine at this time Follow-Up By: 07/08/18 Additional Comments f/u: diet advancement, TF initiation
--- NOTE | 2018-07-07 15:36 | Progress Note ---
Assessment and Plan Consult date: 07/05/18 Requesting physician: NANCY JONES Consult reason: atrial fibrillation History of present illness: The pt is a 57 YO Female with COPD, Chronic Respiratory Failure on 3-4L Home Oxygen, paroxysmal atrial fib/flutter (s/p DCCV here 06/2017), HTN, HLP, DM, CAD s/p reported PCI last year at [facility], tobacco use. She is followed by [facility]. She is intubated and sedated on evaluation and thus HPI obtained per her daughters at bedside. Pt was recently hospitalized over for respiratory failure. She was noted to be very lethargic and SOB yesterday and was evaluated at a [facility] and was found to have Acute Respiratory Failure and was subsequently intubated and placed on vent support. Pt also noted to have AFib with RVR and reported brief ? cardiac arrest and was treated per ACLS protocol with return of perfusing rhythm as per [facility] staff. EMS was notified, and upon arrival patient was found to be in distress, but with perfusing cardiac rhythm. Pt transported to [facility] for further care and evaluation. Pt self extubated en route to [facility]. Pt seen and evaluated in ED and subsequently reintubated and placed on vent support. On evaluation, pt is in NSR. Echo done 06/2017 showed EF 55-60%, mod pulm HTN with RVSP 51mmHg. 07/06/2018>patient in atrial fibrillation with rapid VR,will try iv Diltiazem. 07/07/2018>patient is in S.R,will d/c iv Amiodorone,start po Diltiazem. - Patient Problems (1) Acute on chronic respiratory failure Current Visit: Yes Status: Acute (2) COPD (chronic obstructive pulmonary disease) Current Visit: Yes Status: Chronic (3) HTN (hypertension) Current Visit: Yes Status: Chronic (4) Paroxysmal atrial fibrillation Current Visit: Yes Status: Chronic (5) Type 2 diabetes mellitus Current Visit: Yes Status: Chronic Qualifiers: Diabetes mellitus lobsterman insulin use: without alf use Diabetes mellitus complication status: without complication Qualified Code(s): E11.9 - Type 2 diabetes mellitus without complications (6) Depression Current Visit: No Status: Chronic Qualifiers: Depression Type: unspecified Qualified Code(s): F32.9 - Major depressive disorder, single episode, unspecified Subjective Principal diagnosis: Ac on Chr Hypercapnic Resp Failure; AE-COPD; Cardiac Arrest with ROSC Interval history: Patient is in S.R. Objective Vital Signs Temp Pulse Pulse Pulse Resp Resp BP 07/07/18 15:10 71 20 125/83 07/07/18 15:00 77 23 142/88 07/07/18 14:50 76 23 142/88 07/07/18 14:40 75 17 142/88 07/07/18 14:30 69 15 142/88 07/07/18 14:22 77 14 07/07/18 14:20 70 142/88 07/07/18 14:15 73 18 07/07/18 14:10 76 29 H 142/88 07/07/18 14:00 70 22 142/88 07/07/18 13:50 73 22 160/101 07/07/18 13:40 73 19 160/101 07/07/18 13:30 89 18 160/101 07/07/18 13:20 73 16 160/101 07/07/18 13:10 72 21 160/101 07/07/18 13:00 72 20 150/88 07/07/18 12:50 72 160/101 07/07/18 12:40 81 160/101 07/07/18 12:30 77 160/101 07/07/18 12:20 85 17 160/101 07/07/18 12:10 88 18 160/101 07/07/18 12:00 98.1 F 90 71 20 160/101 07/07/18 11:50 81 20 161/86 07/07/18 11:40 80 161/86 07/07/18 11:30 75 16 161/86 07/07/18 11:20 77 24 161/86 07/07/18 11:10 80 17 161/86 07/07/18 11:00 71 24 161/86 07/07/18 10:50 79 19 154/92 07/07/18 10:40 74 20 154/92 07/07/18 10:30 75 19 154/92 07/07/18 10:20 71 18 154/92 07/07/18 10:10 71 20 154/92 07/07/18 10:00 82 28 H 127/73 07/07/18 09:50 81 32 H 127/73 07/07/18 09:40 81 29 H 127/73 07/07/18 09:30 74 22 127/73 07/07/18 09:20 71 20 127/73 07/07/18 09:10 73 23 127/73 07/07/18 09:00 72 22 127/73 07/07/18 08:50 68 22 139/86 07/07/18 08:40 69 25 H 139/86 07/07/18 08:30 72 19 139/86 07/07/18 08:20 77 20 139/86 07/07/18 08:10 74 23 139/86 07/07/18 08:00 98.1 F 61 66 20 139/86 07/07/18 07:55 72 18 07/07/18 07:50 67 22 124/78 07/07/18 07:45 70 18 07/07/18 07:40 67 21 124/78 07/07/18 07:30 68 17 124/78 07/07/18 07:20 79 124/78 07/07/18 07:10 124/78 07/07/18 07:00 77 22 139/85 07/07/18 06:50 80 21 139/85 07/07/18 06:40 79 30 H 139/85 07/07/18 06:30 76 17 139/85 07/07/18 06:20 73 22 139/85 07/07/18 06:10 69 21 139/85 07/07/18 06:00 69 16 139/85 07/07/18 05:50 70 20 134/79 07/07/18 05:40 70 23 134/79 07/07/18 05:30 69 23 134/79 07/07/18 05:20 70 21 134/79 07/07/18 05:10 69 21 134/79 07/07/18 05:00 68 20 132/83 07/07/18 04:50 72 20 132/83 07/07/18 04:40 70 22 132/83 07/07/18 04:30 68 18 132/83 07/07/18 04:20 69 20 131/79 07/07/18 04:10 70 22 131/79 07/07/18 04:00 65 16 131/79 07/07/18 03:50 67 14 135/87 07/07/18 03:40 71 22 135/87 07/07/18 03:30 70 21 135/87 07/07/18 03:20 68 20 132/83 07/07/18 03:10 76 19 132/83 07/07/18 03:00 70 18 132/83 07/07/18 02:50 74 19 135/87 07/07/18 02:40 70 21 135/87 07/07/18 02:30 74 22 135/87 07/07/18 02:20 69 18 135/87 07/07/18 02:10 73 22 135/87 07/07/18 02:00 73 22 135/87 07/07/18 01:50 72 21 118/81 07/07/18 01:40 75 22 118/81 07/07/18 01:30 74 25 H 118/81 07/07/18 01:20 71 23 118/81 07/07/18 01:10 74 22 118/81 07/07/18 01:00 74 20 118/81 07/07/18 00:50 75 21 128/76 07/07/18 00:40 78 20 128/76 07/07/18 00:30 76 22 128/76 07/07/18 00:20 72 23 128/76 07/07/18 00:10 71 22 128/76 07/07/18 00:00 78 27 H 114/70 07/06/18 23:50 72 11 L 114/70 07/06/18 23:40 73 21 114/70 07/06/18 23:30 70 21 114/70 07/06/18 23:20 72 19 114/70 07/06/18 23:10 73 21 114/70 07/06/18 23:00 69 19 114/70 07/06/18 22:50 76 14 117/78 07/06/18 22:40 67 13 117/78 07/06/18 22:30 74 17 117/78 07/06/18 22:20 76 16 117/78 07/06/18 22:10 76 19 117/78 07/06/18 22:00 74 20 117/78 07/06/18 21:50 76 24 112/77 07/06/18 21:40 73 22 112/77 07/06/18 21:30 75 12 112/77 07/06/18 21:20 75 16 07/06/18 21:10 77 11 L 112/77 01/12/19 21:00 75 16 105/73 07/06/18 20:53 75 15 105/73 07/06/18 20:40 81 11 L 111/75 07/06/18 20:30 82 22 109/69 07/06/18 20:20 82 24 109/69 07/06/18 20:10 79 20 116/70 07/06/18 20:01 83 19 116/70 07/06/18 20:00 97.2 F L 88 80 30 H 20 116/70 07/06/18 19:50 79 17 125/78 07/06/18 19:45 80 15 07/06/18 19:40 79 18 120/74 07/06/18 19:35 07/06/18 19:34 73 15 07/06/18 19:30 80 16 120/74 07/06/18 19:20 77 21 121/79 07/06/18 19:10 80 18 117/69 07/06/18 19:00 75 24 117/69 07/06/18 18:50 91 H 23 98/65 07/06/18 18:40 77 20 107/66 07/06/18 18:30 75 21 107/66 07/06/18 18:20 76 22 104/64 07/06/18 18:10 83 15 108/62 07/06/18 18:00 78 20 108/62 07/06/18 17:50 79 22 99/62 07/06/18 17:40 78 20 133/73 07/06/18 17:30 90 22 104/69 07/06/18 17:20 81 22 105/74 07/06/18 17:10 85 36 H 133/73 07/06/18 17:00 86 30 H 118/67 07/06/18 16:50 86 30 H 118/67 07/06/18 16:40 76 26 H 102/63 07/06/18 16:30 77 24 102/63 07/06/18 16:20 79 22 97/60 07/06/18 16:10 81 24 95/54 07/06/18 16:00 98.4 F 87 16 95/54 07/06/18 15:50 83 24 98/58 07/06/18 15:40 83 21 96/63 Pulse Ox 07/07/18 15:10 96 01/13/19 15:00 97 07/07/18 14:50 94 07/07/18 14:40 95 07/07/18 14:30 98 07/07/18 14:22 07/07/18 14:20 95 07/07/18 14:15 07/07/18 14:10 94 07/07/18 14:00 96 07/07/18 13:50 97 07/07/18 13:40 97 07/07/18 13:30 97 07/07/18 13:20 97 07/07/18 13:10 98 07/07/18 13:00 97 07/07/18 12:50 100 07/07/18 12:40 96 07/07/18 12:30 97 07/07/18 12:20 95 07/07/18 12:10 98 07/07/18 12:00 94 07/07/18 11:50 97 07/07/18 11:40 94 07/07/18 11:30 98 07/07/18 11:20 98 07/07/18 11:10 97 07/07/18 11:00 98 07/07/18 10:50 97 07/07/18 10:40 97 07/07/18 10:30 96 07/07/18 10:20 95 07/07/18 10:10 94 07/07/18 10:00 93 07/07/18 09:50 94 07/07/18 09:40 96 07/07/18 09:30 97 07/07/18 09:20 98 07/07/18 09:10 97 07/07/18 09:00 95 07/07/18 08:50 99 07/07/18 08:40 98 07/07/18 08:30 97 07/07/18 08:20 96 07/07/18 08:10 95 07/07/18 08:00 96 07/07/18 07:55 07/07/18 07:50 98 07/07/18 07:45 07/07/18 07:40 98 07/07/18 07:30 84 07/07/18 07:20 95 07/07/18 07:10 97 07/07/18 07:00 97 07/07/18 06:50 99 07/07/18 06:40 95 07/07/18 06:30 98 07/07/18 06:20 99 07/07/18 06:10 99 07/07/18 06:00 100 07/07/18 05:50 100 07/07/18 05:40 99 07/07/18 05:30 98 07/07/18 05:20 100 07/07/18 05:10 100 07/07/18 05:00 99 07/07/18 04:50 98 07/07/18 04:40 99 07/07/18 04:30 100 07/07/18 04:20 99 07/07/18 04:10 99 07/07/18 04:00 98 07/07/18 03:50 98 07/07/18 03:40 99 07/07/18 03:30 97 07/07/18 03:20 98 07/07/18 03:10 99 07/07/18 03:00 99 07/07/18 02:50 99 07/07/18 02:40 99 07/07/18 02:30 96 07/07/18 02:20 99 07/07/18 02:10 98 07/07/18 02:00 99 07/07/18 01:50 99 07/07/18 01:40 98 07/07/18 01:30 98 07/07/18 01:20 98 07/07/18 01:10 98 07/07/18 01:00 99 07/07/18 00:50 98 07/07/18 00:40 98 07/07/18 00:30 98 07/07/18 00:20 99 07/07/18 00:10 98 07/07/18 00:00 97 07/06/18 23:50 99 07/06/18 23:40 99 07/06/18 23:30 99 07/06/18 23:20 99 07/06/18 23:10 98 07/06/18 23:00 99 07/06/18 22:50 97 07/06/18 22:40 98 07/06/18 22:30 97 07/06/18 22:20 99 07/06/18 22:10 98 07/06/18 22:00 97 07/06/18 21:50 98 07/06/18 21:40 98 07/06/18 21:30 97 07/06/18 21:20 97 07/06/18 21:10 98 07/06/18 21:00 99 07/06/18 20:53 97 07/06/18 20:40 07/06/18 20:30 99 07/06/18 20:20 98 07/06/18 20:10 98 07/06/18 20:01 97 07/06/18 20:00 96 07/06/18 19:50 98 07/06/18 19:45 07/06/18 19:40 99 07/06/18 19:35 97 07/06/18 19:34 07/06/18 19:30 95 07/06/18 19:20 98 07/06/18 19:10 99 07/06/18 19:00 98 07/06/18 18:50 98 07/06/18 18:40 98 07/06/18 18:30 97 07/06/18 18:20 98 07/06/18 18:10 98 07/06/18 18:00 97 07/06/18 17:50 97 07/06/18 17:40 97 07/06/18 17:30 96 07/06/18 17:20 98 07/06/18 17:10 97 07/06/18 17:00 97 07/06/18 16:50 97 07/06/18 16:40 98 07/06/18 16:30 97 07/06/18 16:20 97 07/06/18 16:10 96 07/06/18 16:00 98 07/06/18 15:50 98 07/06/18 15:40 98 - Physical Examination General: No Apparent Distress (not intubated.) Neck: Positive: neck supple, trachea midline Cardiac: Positive: Regular Rhythm Lungs: Positive: Decreased Breath Sounds (diffuse ronchi noted.) Neuro: Positive: Other (intubated, sedated ) Abdomen: Positive: Unremarkable. Negative: Tender Extremities: Absent: edema - Imaging and Cardiology EKG: report reviewed, image reviewed Echo: report reviewed (06/2017 showed EF 55-60%, mod pulm HTN with RVSP 51mmHg. ) - EKG Sinus rhythms and dysrhythmias: sinus rhythm - Allied health notes Allied health notes reviewed: nursing
[2018-07-07] MEDS: CARDIZEM PO SCH ×2 (17:12→21:40)
[2018-07-08] MEDS ORDERED: DESYREL PO PRN (02:07)
[2018-07-08] MEDS: CARDIZEM PO SCH ×3 (05:34→22:23)
[2018-07-08] MEDS: BROVANA NEBU IH SCH ×2 (08:28→21:00)
[2018-07-08] MEDS: DUONEB *Not for PRN Use IH SCH ×3 (08:28→21:00)
[2018-07-08] MEDS: PULMICORT IH SCH ×2 (08:29→21:00)
[2018-07-08] MEDS: LEVAQUIN 750MG/150ML 750 MG/150 ML BAG IV SCH (09:29)
[2018-07-08] MEDS: LOVENOX SUB-Q SCH (09:30)
[2018-07-08] MEDS: PEPCID IV SCH ×2 (09:30→22:21)
[2018-07-08] MEDS: TORADOL IV PRN ×2 (09:30→22:20)
[2018-07-08] MEDS: SODIUM CHLORIDE FLUSH SYRINGE 10 ML IV SCH ×2 (09:31→22:21)
--- NOTE | 2018-07-08 09:43 | Progress Note ---
Addendum entered and electronically signed by OZIEL LARA MD 07/08/18 11:00: Advanced COPD/Acute on chronic hypoxemic respiratory failure/home oxygen Cardiac Arrest Atrial fibrillation/PAF Continue cardizem Continue oral anticoagulation CAD/stent Depression/Opiate Dependence DNR/DNI Original Note: Assessment and Plan F/u echo. Pt currently in NSR. Convert cardizem 60mg Q8H to cardizem CD from tomorrow AM. Pt noted to have paroxysmal AFib over the weekend and thus systemic AC is indicated, pt is agreeable to prison systemic AC. Initiate Eliquis 5mg BID. Attempt to obtain medical records from [facility] - pt had reported PCI there last year. Pt states that she is not agreeable to hospice at this time. She does, however, wish to be made DNR/DNI. D/w Dr. Hennessy. Pt may tx from IMCU to telemetry from cardiology standpoint. The patient has been seen in conjunction with Dr. Lara who agrees with the assessment and plan of care. - Patient Problems (1) Acute on chronic respiratory failure Current Visit: Yes Status: Acute (2) COPD (chronic obstructive pulmonary disease) Current Visit: Yes Status: Chronic (3) Paroxysmal atrial fibrillation Current Visit: Yes Status: Chronic (4) Sepsis Current Visit: Yes Status: Suspected Qualifiers: Sepsis type: sepsis due to unspecified organism Qualified Code(s): A41.9 - Sepsis, unspecified organism (5) CAD (coronary artery disease) Current Visit: Yes Status: Chronic (6) Stented coronary artery Current Visit: Yes Status: Chronic (7) HTN (hypertension) Current Visit: Yes Status: Chronic (8) Type 2 diabetes mellitus Current Visit: Yes Status: Chronic Qualifiers: Diabetes mellitus rn long term care insulin use: without prison use Diabetes mellitus complication status: without complication Qualified Code(s): E11.9 - Type 2 diabetes mellitus without complications (9) Hyperlipidemia Current Visit: Yes Status: Chronic Subjective Date of service: 07/08/18 Principal diagnosis: Ac on Chr Hypercapnic Resp Failure; AE-COPD; Cardiac Arrest with ROSC Interval history: pt resting in bed, A&O, c/o chest soreness r/t chest compressions, admits to SOB but reports this is her baseline. Requesting resumption of anxiety and depressi on medications. in SR on telemetry. Objective Last Vital Signs Temp 98.1 F 07/07/18 12:00 Pulse 79 07/08/18 09:20 Resp 23 07/08/18 09:20 BP 132/81 07/08/18 09:20 Pulse Ox 89 07/08/18 09:20 - Physical Examination General: No Apparent Distress HEENT: Positive: PERRL Neck: Positive: neck supple, trachea midline Cardiac: Positive: Reg Rate and Rhythm, S1/S2 Lungs: Positive: Decreased Breath Sounds Neuro: Positive: Other (intubated, sedated ) Abdomen: Positive: Unremarkable. Negative: Tender Extremities: Absent: edema - Imaging and Cardiology EKG: report reviewed, image reviewed Echo: report reviewed (06/2017 showed EF 55-60%, mod pulm HTN with RVSP 51mmHg. ) - Telemetry EKG Rhythm: Sinus Rhythm - EKG Sinus rhythms and dysrhythmias: sinus rhythm - Allied health notes Allied health notes reviewed: nursing
[2018-07-08] MEDS: BABY ASPIRIN PO SCH (11:29)
--- NOTE | 2018-07-08 13:11 | Progress Note ---
Assessment and Plan Patient alert, awake. says breathing some what better. Still Complaining productive cough with yellow sputum. On 3 litres O2. O2 saturation 94%. Patient still smoking. Counselled to stop smoking. Patient is on Home O2.Patient complaining pleuritic type of chest pain. Obtaining chest xray. - Patient Problems (1) Acute on chronic respiratory failure Current Visit: Yes Status: Acute Plan to address problem: O2 3 litres via nasal canula Brovanna/Budesonide aerosol treatments q 6 hours. Albuterol/atrovent aerosol treatments q 6 hours Prn for shortness of breath. Continue levaquin Continue S/C Lovenox. Continue famotidine (2) COPD (chronic obstructive pulmonary disease) Current Visit: Yes Status: Chronic Plan to address problem: O2 3 litres via nasal canula Brovanna/Budesonide aerosol treatments q 6 hours. Albuterol/atrovent aerosol treatments q 6 hours Prn for shortness of breath. Continue levaquin Continue S/C Lovenox. Continue famotidine (3) CHF (congestive heart failure) Current Visit: Yes Status: Acute Qualifiers: Heart failure chronicity: acute Plan to address problem: Management as per cardiology. (4) CAD (coronary artery disease) Current Visit: Yes Status: Chronic Plan to address problem: Management as per cardiology. (5) HTN (hypertension) Current Visit: Yes Status: Chronic Plan to address problem: Management as per primary care. Subjective Date of service: 07/08/18 Principal diagnosis: Ac on Chr Hypercapnic Resp Failure; AE-COPD; Cardiac Arrest with ROSC Interval history: Patient alert, awake. says breathing some what better. Still Complaining productive cough with yellow sputum. On 3 litres O2. O2 saturation 94%. Patient still smoking. Counselled to stop smoking. Patient is on Home O2.Patient complaining pleuritic type of chest pain. Obtaining chest xray. Objective Vital Signs - 12hr 07/08/18 07/08/18 07/08/18 01:10 01:20 01:30 Pulse Rate 68 77 64 Pulse Rate [ Anterior Bilateral Throughout] Pulse Rate [ From Monitor] Respiratory 21 17 28 H Rate Respiratory Rate [Anterior Bilateral Throughout] Blood Pressure 139/79 139/79 140/80 O2 Sat by Pulse 93 96 97 Oximetry 07/08/18 07/08/18 07/08/18 01:40 01:50 02:00 Pulse Rate 60 85 73 Pulse Rate [ Anterior Bilateral Throughout] Pulse Rate [ From Monitor] Respiratory 18 26 H 21 Rate Respiratory Rate [Anterior Bilateral Throughout] Blood Pressure 140/80 140/80 139/79 O2 Sat by Pulse 98 93 96 Oximetry 07/08/18 07/08/18 07/08/18 02:10 02:20 02:30 Pulse Rate 62 64 64 Pulse Rate [ Anterior Bilateral Throughout] Pulse Rate [ From Monitor] Respiratory 20 23 22 Rate Respiratory Rate [Anterior Bilateral Throughout] Blood Pressure 135/89 135/89 O2 Sat by Pulse 98 96 96 Oximetry 07/08/18 07/08/18 07/08/18 02:40 02:50 03:00 Pulse Rate 67 59 L 74 Pulse Rate [ Anterior Bilateral Throughout] Pulse Rate [ From Monitor] Respiratory 22 18 20 Rate Respiratory Rate [Anterior Bilateral Throughout] Blood Pressure 135/89 135/89 129/82 O2 Sat by Pulse 98 97 88 Oximetry 07/08/18 07/08/18 07/08/18 03:10 03:20 03:30 Pulse Rate 61 58 L 58 L Pulse Rate [ Anterior Bilateral Throughout] Pulse Rate [ From Monitor] Respiratory 25 H 21 21 Rate Respiratory Rate [Anterior Bilateral Throughout] Blood Pressure 129/82 129/82 129/82 O2 Sat by Pulse 95 96 96 Oximetry 07/08/18 07/08/18 07/08/18 03:40 03:50 04:00 Pulse Rate 63 90 60 Pulse Rate [ Anterior Bilateral Throughout] Pulse Rate [ 64 From Monitor] Respiratory 20 26 H 23 Rate Respiratory Rate [Anterior Bilateral Throughout] Blood Pressure 129/82 129/82 143/82 O2 Sat by Pulse 96 86 92 Oximetry 07/08/18 07/08/18 07/08/18 04:10 04:20 04:30 Pulse Rate 56 L 56 L 59 L Pulse Rate [ Anterior Bilateral Throughout] Pulse Rate [ From Monitor] Respiratory 20 18 20 Rate Respiratory Rate [Anterior Bilateral Throughout] Blood Pressure 143/82 143/82 143/82 O2 Sat by Pulse 97 98 98 Oximetry 07/08/18 07/08/18 07/08/18 04:40 04:50 05:00 Pulse Rate 63 59 L 59 L Pulse Rate [ Anterior Bilateral Throughout] Pulse Rate [ From Monitor] Respiratory 24 19 19 Rate Respiratory Rate [Anterior Bilateral Throughout] Blood Pressure 143/82 143/82 143/82 O2 Sat by Pulse 98 97 98 Oximetry 07/08/18 07/08/18 07/08/18 05:10 05:20 05:30 Pulse Rate 66 58 L 64 Pulse Rate [ Anterior Bilateral Throughout] Pulse Rate [ From Monitor] Respiratory 18 19 21 Rate Respiratory Rate [Anterior Bilateral Throughout] Blood Pressure 124/72 124/72 124/72 O2 Sat by Pulse 97 97 97 Oximetry 07/08/18 07/08/18 07/08/18 05:34 05:40 05:50 Pulse Rate 65 81 60 Pulse Rate [ Anterior Bilateral Throughout] Pulse Rate [ From Monitor] Respiratory 33 H 21 Rate Respiratory Rate [Anterior Bilateral Throughout] Blood Pressure 124/72 124/72 124/72 O2 Sat by Pulse 90 97 Oximetry 07/08/18 07/08/18 07/08/18 06:00 06:10 06:20 Pulse Rate 58 L 64 55 L Pulse Rate [ Anterior Bilateral Throughout] Pulse Rate [ From Monitor] Respiratory 19 Rate Respiratory Rate [Anterior Bilateral Throughout] Blood Pressure 142/83 142/83 142/83 O2 Sat by Pulse 95 100 100 Oximetry 07/08/18 07/08/18 07/08/18 06:30 06:40 06:50 Pulse Rate 61 70 66 Pulse Rate [ Anterior Bilateral Throughout] Pulse Rate [ From Monitor] Respiratory 18 21 30 H Rate Respiratory Rate [Anterior Bilateral Throughout] Blood Pressure 142/83 142/83 142/83 O2 Sat by Pulse 99 98 98 Oximetry 07/08/18 07/08/18 07/08/18 07:00 07:10 07:20 Pulse Rate 70 65 71 Pulse Rate [ Anterior Bilateral Throughout] Pulse Rate [ From Monitor] Respiratory 32 H 27 H 30 H Rate Respiratory Rate [Anterior Bilateral Throughout] Blood Pressure 142/83 144/85 144/85 O2 Sat by Pulse 97 96 96 Oximetry 07/08/18 07/08/18 07/08/18 07:30 07:40 07:50 Pulse Rate 70 68 60 Pulse Rate [ Anterior Bilateral Throughout] Pulse Rate [ From Monitor] Respiratory 18 17 18 Rate Respiratory Rate [Anterior Bilateral Throughout] Blood Pressure 144/85 144/85 144/85 O2 Sat by Pulse 97 91 95 Oximetry 07/08/18 07/08/18 07/08/18 08:00 08:10 08:20 Pulse Rate 63 66 65 Pulse Rate [ Anterior Bilateral Throughout] Pulse Rate [ 64 From Monitor] Respiratory 21 19 20 Rate Respiratory Rate [Anterior Bilateral Throughout] Blood Pressure 144/85 121/73 121/73 O2 Sat by Pulse 95 96 96 Oximetry 07/08/18 07/08/18 07/08/18 08:30 08:40 08:50 Pulse Rate 69 66 81 Pulse Rate [ 87 Anterior Bilateral Throughout] Pulse Rate [ From Monitor] Respiratory 20 19 29 H Rate Respiratory 18 Rate [Anterior Bilateral Throughout] Blood Pressure 121/73 121/73 121/73 O2 Sat by Pulse 96 97 93 Oximetry 07/08/18 07/08/18 07/08/18 09:00 09:01 09:10 Pulse Rate 83 78 Pulse Rate [ 88 Anterior Bilateral Throughout] Pulse Rate [ From Monitor] Respiratory 35 H 24 Rate Respiratory 18 Rate [Anterior Bilateral Throughout] Blood Pressure 121/73 132/81 O2 Sat by Pulse 90 91 Oximetry 07/08/18 07/08/18 07/08/18 09:20 09:30 09:40 Pulse Rate 79 81 70 Pulse Rate [ Anterior Bilateral Throughout] Pulse Rate [ From Monitor] Respiratory 23 25 H 25 H Rate Respiratory Rate [Anterior Bilateral Throughout] Blood Pressure 132/81 132/81 132/81 O2 Sat by Pulse 89 90 90 Oximetry 07/08/18 07/08/18 07/08/18 09:50 10:00 10:10 Pulse Rate 73 77 79 Pulse Rate [ Anterior Bilateral Throughout] Pulse Rate [ From Monitor] Respiratory 21 15 26 H Rate Respiratory Rate [Anterior Bilateral Throughout] Blood Pressure 132/81 132/81 126/70 O2 Sat by Pulse 92 94 92 Oximetry 07/08/18 07/08/18 10:20 10:30 Pulse Rate 76 78 Pulse Rate [ Anterior Bilateral Throughout] Pulse Rate [ From Monitor] Respiratory 20 20 Rate Respiratory Rate [Anterior Bilateral Throughout] Blood Pressure 126/70 126/70 O2 Sat by Pulse 93 94 Oximetry Constitutional: no acute distress, alert, other (middle aged CF, normocephalic and atraumatic with mildly increased resp effort at rest) Eyes: non-icteric ENT: oropharynx moist Neck: supple, no lymphadenopathy, no JVD Effort: mildly labored Ascultation: Bilateral: diminished breath sounds, rhonchi Percussion: Bilateral: not dull Cardiovascular: other (Irregular, S1,S2) Gastrointestinal: normoactive bowel sounds, soft, non-tender, non-distended Integumentary: normal Extremities: no cyanosis, no edema, pink and warm, pulses normal Neurologic: normal mental status, non-focal exam, pupils equal and round, motor strength normal and Psychiatric: mood appropriate, anxious CBC and BMP: 07/06/18 04:15 07/06/18 04:15 ABG, PT/INR, D-dimer: ABG POC ABG pH 7.394 (7.35-7.45) 07/05/18 14:36 POC ABG pCO2 58.7 (35-45) H 07/05/18 14:36 POC ABG pO2 92 (80-105) 07/05/18 14:36 POC ABG HCO3 35.8 07/05/18 14:36 POC ABG Total CO2 38 07/05/18 14:36 POC ABG O2 Sat 97 07/05/18 14:36 PT/INR, D-dimer PT 14.5 Sec. (12.2-14.9) 07/04/18 12:38 INR 1.09 (0.87-1.13) 07/04/18 12:38 D-Dimer 742.18 ng/mlDDU (0-234) H 07/05/18 12:45 Abnormal lab findings: Abnormal Labs 07/04/18 07/04/18 07/04/18 12:38 12:38 13:13 WBC 15.4 H Hgb 14.9 H Hct 44.2 H MCV 103 H MCH 35 H RDW 15.6 H Plt Count Lymph % (Auto) Sampson % (Auto) 8.5 H Lymph # Sampson # 1.3 H Seg Neutrophils % 75.1 H Seg Neutrophils # 11.5 H D-Dimer POC ABG pCO2 POC ABG pO2 Chloride 95.3 L Carbon Dioxide BUN Creatinine Glucose 187 H POC Glucose Lactic Acid 3.10 H* Calcium C-Reactive Protein NT-Pro-B Natriuret Pep 1969 H 07/04/18 07/05/18 07/05/18 14:11 05:43 12:45 WBC Hgb Hct MCV 102 H MCH 35 H RDW 15.4 H Plt Count 85 L Lymph % (Auto) 9.1 L Sampson % (Auto) Lymph # 0.9 L Sampson # Seg Neutrophils % 83.5 H Seg Neutrophils # 8.5 H D-Dimer POC ABG pCO2 61.5 H 46.5 H POC ABG pO2 479 H Chloride Carbon Dioxide BUN Creatinine Glucose POC Glucose Lactic Acid Calcium C-Reactive Protein NT-Pro-B Natriuret Pep 07/05/18 07/05/18 07/05/18 12:45 12:45 14:36 WBC Hgb Hct MCV MCH RDW Plt Count Lymph % (Auto) Sampson % (Auto) Lymph # Sampson # Seg Neutrophils % Seg Neutrophils # D-Dimer 742.18 H POC ABG pCO2 58.7 H POC ABG pO2 Chloride Carbon Dioxide 33 H D BUN 24 H Creatinine Glucose 145 H POC Glucose Lactic Acid Calcium 7.8 L C-Reactive Protein 15.00 H NT-Pro-B Natriuret Pep 07/06/18 07/06/18 07/06/18 04:15 04:15 21:24 WBC Hgb Hct MCV 104 H MCH 35 H RDW 15.3 H Plt Count 139 L Lymph % (Auto) Sampson % (Auto) Lymph # Sampson # Seg Neutrophils % Seg Neutrophils # D-Dimer POC ABG pCO2 POC ABG pO2 Chloride Carbon Dioxide 35 H BUN Creatinine 0.5 L Glucose 139 H POC Glucose 157 H Lactic Acid Calcium 8.2 L C-Reactive Protein NT-Pro-B Natriuret Pep 07/07/18 07/07/18 07/07/18 11:48 16:19 21:07 WBC Hgb Hct MCV MCH RDW Plt Count Lymph % (Auto) Sampson % (Auto) Lymph # Sampson # Seg Neutrophils % Seg Neutrophils # D-Dimer POC ABG pCO2 POC ABG pO2 Chloride Carbon Dioxide BUN Creatinine Glucose POC Glucose 161 H 132 H 107 H Lactic Acid Calcium C-Reactive Protein NT-Pro-B Natriuret Pep Allied health notes reviewed: nursing
--- NOTE | 2018-07-08 18:27 | Progress Note ---
Assessment and Plan Assessment and plan: 57 YO Female with COPD, Chronic Respiratory Failure on 4L Home Oxygen, DM, Depression, Opiate Dependence, Nicotine Dependence presents to ED for evaluation. Pt was seen and evaluated at a [facility] and was found to have Acute Hypoxemic Respiratory Failure and was subsequently intubated and placed on vent support . Pt also experienced cardiac arrest and was treated IAW ACLS protocol with return of perfusing rhythm as per [facility] staff. EMS was notified, and upon arrival patient was found to be in distress, but with perfusing cardiac rhythm. Pt transported to [facility] for further care and evaluation. Pt self extubated en route to [facility]. Pt seen and evaluated in ED and subsequently reintubated and placed on vent support. Pt found to have Acute Respiratory Failure, Sepsis, and Acidosis, and New onset CHF. Pt admitted to ICU. Discussed care plan with daughter, who reports that patient is DNR and does not wish to be intubated. Pt daughter requests extubation and comfort care measures. Patient was subsequently extubated and treated with amidarone. she is doing well but wants to be a DNR. She refused hospice discussion. (1) Sepsis Current Visit: Yes Status: Acute Qualifiers: Sepsis type: sepsis due to unspecified organism Qualified Code(s): A41.9 - Sepsis, unspecified organism Plan to address problem: IV antibiotic therapy, CBC, CMP, IV antibiotic therapy, (2) Paroxysmal atrial fibrillation Current Visit: Yes Status: Chronic Cardiology input noted. (3)CHF (congestive heart failure) Current Visit: Yes Status: Acute Qualifiers: Heart failure chronicity: acute Plan to address problem: Supportive care, Pt found to have poor prognosis. Pt family request comfort care measures. (4) Acute on chronic respiratory failure with hypercapnia Current Visit: No Status: Acute Plan to address problem: Pulmonary (5)Type 2 diabetes mellitus Current Visit: Yes Status: Chronic Qualifiers: Diabetes mellitus jail insulin use: without jail use Diabetes mellitus complication status: without complication Qualified Code(s): E11.9 - Type 2 diabetes mellitus without complications (6) Acidosis Current Visit: Yes Status: Acute Plan to address problem: IVF resuscitation therapy, monitor uop q shift, serial lactic acid (7) DVT prophylaxis Current Visit: No Status: Acute Plan to address problem: SCD to BLE while in bed. Transfer to medical telemetry floor Discussed with patient and nursing about DNR History Interval history: Patient seen and examined this am no new complaints at the time of my exam. Now off amiodarone drip Hospitalist Physical - Physical exam Narrative exam: General appearance: Present: awake alert, some cough non productive - EENT Eyes: Present: miosis - Neck Neck: Present: supple, normal ROM - Respiratory Respiratory effort:normal Respiratory: bilateral: diminished, rhonchi - Cardiovascular Heart Sounds: Present: S1 & S2. Absent: rub, click - Extremities Extremities: no ischemia Extremity abnormal: edema Peripheral Pulses: abnormal - Abdominal General gastrointestinal: Present: soft, non-tender, non-distended, normal bowel sounds Female genitourinary: Present: normal - Integumentary Integumentary: Present: clear, dry, decreased turgor - Musculoskeletal Musculoskeletal: generalized weakness - Psychiatric Psychiatric: appropriate mood/affect, intact judgment & insight, memory intact - Neurologic Neurologic: normal mood - Constitutional Vitals: Temp Pulse Resp BP Pulse Ox 98.1 F 85 18 126/83 94 07/07/18 12:00 07/08/18 14:10 07/08/18 14:10 07/08/18 14:10 07/08/18 14:10 General appearance: Present: other (intubated, sedated) Results - Labs CBC & Chem 7: 07/06/18 04:15 07/06/18 04:15 Labs: Laboratory Last Values WBC 10.8 K/mm3 (4.5-11.0) 07/06/18 04:15 RBC 3.82 M/mm3 (3.65-5.03) 07/06/18 04:15 Hgb 13.3 gm/dl (10.1-14.3) 07/06/18 04:15 Hct 39.6 % (30.3-42.9) 07/06/18 04:15 MCV 104 fl (79-97) H 07/06/18 04:15 MCH 35 pg (28-32) H 07/06/18 04:15 MCHC 34 % (30-34) 07/06/18 04:15 RDW 15.3 % (13.2-15.2) H 07/06/18 04:15 Plt Count 139 K/mm3 (140-440) L 07/06/18 04:15 Lymph % (Auto) 9.1 % (13.4-35.0) L 07/05/18 12:45 [place] % (Auto) 7.3 % (0.0-7.3) 07/05/18 12:45 Eos % (Auto) 0.0 % (0.0-4.3) 07/05/18 12:45 Baso % (Auto) 0.1 % (0.0-1.8) 07/05/18 12:45 Lymph # 0.9 K/mm3 (1.2-5.4) L 07/05/18 12:45 [place] # 0.7 K/mm3 (0.0-0.8) 07/05/18 12:45 Eos # 0.0 K/mm3 (0.0-0.4) 07/05/18 12:45 Baso # 0.0 K/mm3 (0.0-0.1) 07/05/18 12:45 Seg Neutrophils % 83.5 % (40.0-70.0) H 07/05/18 12:45 Seg Neutrophils # 8.5 K/mm3 (1.8-7.7) H 07/05/18 12:45 PT 14.5 Sec. (12.2-14.9) 07/04/18 12:38 INR 1.09 (0.87-1.13) 07/04/18 12:38 APTT 29.0 Sec. (24.2-36.6) 07/04/18 12:38 D-Dimer 742.18 ng/mlDDU (0-234) H 07/05/18 12:45 POC ABG pH 7.394 (7.35-7.45) 07/05/18 14:36 POC ABG pCO2 58.7 (35-45) H 07/05/18 14:36 POC ABG pO2 92 (80-105) 07/05/18 14:36 POC ABG HCO3 35.8 07/05/18 14:36 POC ABG Total CO2 38 07/05/18 14:36 POC ABG O2 Sat 97 07/05/18 14:36 POC ABG Base Excess 11 07/05/18 14:36 FiO2 40 % 07/05/18 14:36 Sodium 142 mmol/L (137-145) 07/06/18 04:15 Potassium 4.1 mmol/L (3.6-5.0) 07/06/18 04:15 Chloride 100.9 mmol/L (98-107) 07/06/18 04:15 Carbon Dioxide 35 mmol/L (22-30) H 07/06/18 04:15 Anion Gap 10 mmol/L 07/06/18 04:15 BUN 16 mg/dL (7-17) 07/06/18 04:15 Creatinine 0.5 mg/dL (0.7-1.2) L 07/06/18 04:15 Estimated GFR > 60 ml/min 07/06/18 04:15 BUN/Creatinine Ratio 32 % 07/06/18 04:15 Glucose 139 mg/dL (65-100) H 07/06/18 04:15 POC Glucose 106 (70-105) H 07/08/18 17:12 Lactic Acid 0.90 mmol/L (0.7-2.0) 07/04/18 21:07 Calcium 8.2 mg/dL (8.4-10.2) L 07/06/18 04:15 Troponin T < 0.010 ng/mL (0.00-0.029) 07/04/18 12:38 C-Reactive Protein 15.00 mg/dL (0.00-1.30) H 07/05/18 12:45 NT-Pro-B Natriuret Pep 1969 pg/mL (0-900) H 07/04/18 12:38 Urine Color Yellow (Yellow) 07/04/18 Unknown Urine Turbidity Clear (Clear) 07/04/18 Unknown Urine pH 6.0 (5.0-7.0) 07/04/18 Unknown Ur Specific [place] 1.017 (1.003-1.030) 07/04/18 Unknown Urine Protein 100 mg/dl mg/dL (Negative) 07/04/18 Unknown Urine Glucose (UA) 50 mg/dL (Negative) 07/04/18 Unknown Urine Ketones Tr mg/dL (Negative) 07/04/18 Unknown Urine Blood Mod (Negative) 07/04/18 Unknown Urine Nitrite Neg (Negative) 07/04/18 Unknown Urine Bilirubin Neg (Negative) 07/04/18 Unknown Urine Urobilinogen < 2.0 mg/dL (<2.0) 07/04/18 Unknown Ur Leukocyte Esterase Neg (Negative) 07/04/18 Unknown Urine WBC (Auto) 1.0 /HPF (0.0-6.0) 07/04/18 Unknown Urine RBC (Auto) 21.0 /HPF (0.0-6.0) 07/04/18 Unknown U Epithel Cells (Auto) 1.0 /HPF (0-13.0) 07/04/18 Unknown Urine Mucus Few /HPF 07/04/18 Unknown Nutrition/Malnutrition Assess - Dietary Evaluation Nutrition/Malnutrition Findings: Nutrition Notes Start: 07/05/18 12:32 Freq: Status: Active Protocol: Document 07/08/18 16:12 KENA (Rec: 07/08/18 16:16 [facility] [id number]) Nutrition Notes Initial or Follow up Reassessment Current Diagnosis COPD Diabetes Sepsis Heart Failure Respiratory Failure Current Diet Cardiac Labs/Tests No current available Pertinent Medications Reviewed Height 5 ft 6 in Weight 84 kg [place] Body Weight (lbs) 130.0 BMI 29.9 Subjective/Other Information Pt tolerating PO meals; says she eats at least 50% of meals . No PO intakes recorded in chart. Burn Absent Trauma Absent #1 Nutrition Diagnosis Inadequate oral intake As Evidenced by Signs and Symptoms pt tolerating PO diet and eating at least 50% of meals Diagnosis Progress(for reassessment Improved documentation) Is patient on ventilator? No Is Patient Ambulatory and/or Out of Bed Yes REE-([facility]-ambulatory/OOB) [ [id number] [id number]] Calculation Used for Recommendations [facility] Additional Notes Pro needs 0.8-1g/k-84g/ day Fluid needs 1ml/kcal Nutrition Intervention Change Diet Order: Continue current diet order Goal #1 PO intakes to meet at least 75 % of energy and pro needs Anticipated Discharge Needs: None identified at this time Follow-Up By: 07/12/18 Additional Comments F/U: intakes, wt - Attestation Statement I have reviewed and agreed w/ Malnutrition eval & tx plan: Yes
[2018-07-08] MEDS: ELIQUIS PO SCH (22:22)
[2018-07-09] MEDS: TORADOL IV PRN ×3 (05:36→21:25)
[2018-07-09] MEDS: PULMICORT IH SCH ×2 (10:37→21:42)
[2018-07-09] MEDS: BROVANA NEBU IH SCH ×2 (10:37→21:42)
[2018-07-09] MEDS: DUONEB *Not for PRN Use IH SCH ×3 (10:37→21:42)
[2018-07-09] MEDS: LEVAQUIN 750MG/150ML 750 MG/150 ML BAG IV SCH (10:47)
[2018-07-09] MEDS: BABY ASPIRIN PO SCH (10:47)
[2018-07-09] MEDS: CARDIZEM CD PO SCH (10:47)
[2018-07-09] MEDS: PEPCID IV SCH (10:47)
[2018-07-09] MEDS: ELIQUIS PO SCH ×2 (10:47→21:25)
[2018-07-09] MEDS: SODIUM CHLORIDE FLUSH SYRINGE 10 ML IV SCH ×2 (10:48→21:25)
--- NOTE | 2018-07-09 11:50 | Progress Note ---
Assessment and Plan Advanced COPD/Acute on chronic hypoxemic respiratory failure/home oxygen Cardiac Arrest Atrial fibrillation/PAF Continue cardizem CD Continue oral anticoagulation Pt in SR with bouts of AFlutter RVR with activity. Cont Cardizem CD. Can consider atrial flutter ablation as OP - pt is regularly followed by [facility] cardiology Await echo. CAD/stent Depression/Opiate Dependence DNR/DNI Await echo. Pending echo reveals no gross abnormalities, pt may discharge home from cardiology standpoint on current cardiac regimen. Recommend pt follow up with primary cardiology team at [facility] within 1-2 weeks of hospital discharge. Pt reports she has follow-up appt scheduled for next week. The patient has been seen in conjunction with Dr. Lara who agrees with the assessment and plan of care. - Patient Problems (1) Acute on chronic respiratory failure Current Visit: Yes Status: Acute (2) COPD (chronic obstructive pulmonary disease) Current Visit: Yes Status: Chronic (3) Paroxysmal atrial fibrillation Current Visit: Yes Status: Chronic (4) Sepsis Current Visit: Yes Status: Suspected Qualifiers: Sepsis type: sepsis due to unspecified organism Qualified Code(s): A41.9 - Sepsis, unspecified organism (5) CAD (coronary artery disease) Current Visit: Yes Status: Chronic (6) Stented coronary artery Current Visit: Yes Status: Chronic (7) HTN (hypertension) Current Visit: Yes Status: Chronic (8) Type 2 diabetes mellitus Current Visit: Yes Status: Chronic Qualifiers: Diabetes mellitus [place] [employer] insulin use: without alf use Diabetes mellitus complication status: without complication Qualified Code(s): E11.9 - Type 2 diabetes mellitus without complications (9) Hyperlipidemia Current Visit: Yes Status: Chronic Subjective Date of service: 07/09/18 Principal diagnosis: Ac on Chr Hypercapnic Resp Failure; AE-COPD; Cardiac Arrest with ROSC Interval history: pt resting in bed, A&O, states she is feeling well. in SR on telemetry with bouts of AFib with activity overnight. Objective Last Vital Signs Temp 98.0 F 07/09/18 03:28 Pulse 55 L 07/09/18 10:39 Resp 18 07/09/18 10:39 BP 115/73 07/09/18 03:28 Pulse Ox 98 07/09/18 10:00 - Physical Examination General: No Apparent Distress HEENT: Positive: PERRL Neck: Positive: neck supple, trachea midline Cardiac: Positive: Reg Rate and Rhythm, S1/S2 Lungs: Positive: Decreased Breath Sounds Neuro: Positive: Other (intubated, sedated ) Abdomen: Positive: Unremarkable. Negative: Tender Extremities: Absent: edema - Imaging and Cardiology EKG: report reviewed, image reviewed Echo: report reviewed (06/2017 showed EF 55-60%, mod pulm HTN with RVSP 51mmHg. ) - EKG Sinus rhythms and dysrhythmias: sinus rhythm - Allied health notes Allied health notes reviewed: nursing
--- NOTE | 2018-07-09 13:36 | Progress Note ---
Assessment and Plan Patient alert, awake. says breathing better to day. Cough also getting better. On 3 litres O2. O2 saturation 96%. Patient still smoking. Counselled to stop smoking. Patient is on Home O2. chest xray not done yet. Venous doppler studies of legs reported non occlusive dvt in right leg above the knee.Obtaining V/Q scan also. - Patient Problems (1) Acute on chronic respiratory failure Current Visit: Yes Status: Acute Plan to address problem: O2 3 litres via nasal canula Brovanna/Budesonide aerosol treatments q 6 hours. Albuterol/atrovent aerosol treatments q 6 hours Prn for shortness of breath. Continue levaquin Patient is on Apixaban. Continue famotidine (2) COPD (chronic obstructive pulmonary disease) Current Visit: Yes Status: Chronic Plan to address problem: O2 3 litres via nasal canula Brovanna/Budesonide aerosol treatments q 6 hours. Albuterol/atrovent aerosol treatments q 6 hours Prn for shortness of breath. Continue levaquin Patient is on Apixaban Continue famotidine (3) CHF (congestive heart failure) Current Visit: Yes Status: Acute Qualifiers: Heart failure chronicity: acute Plan to address problem: Management as per cardiology. (4) CAD (coronary artery disease) Current Visit: Yes Status: Chronic Plan to address problem: Management as per cardiology. (5) HTN (hypertension) Current Visit: Yes Status: Chronic Plan to address problem: Management as per primary care. (6) Right leg DVT Current Visit: Yes Status: Acute Plan to address problem: Patient is on APIXABAN. Subjective Date of service: 07/09/18 Principal diagnosis: Ac on Chr Hypercapnic Resp Failure; AE-COPD; Cardiac Arrest with ROSC Interval history: Patient alert, awake. says breathing better to day. Cough also getting better. On 3 litres O2. O2 saturation 96%. Patient still smoking. Counselled to stop smoking. Patient is on Home O2. chest xray not done yet. Venous doppler studies of legs reported non occlusive dvt in right leg above the knee.Obtaining V/Q scan also. Objective Vital Signs - 12hr 07/09/18 07/09/18 07/09/18 02:04 03:28 10:00 Temperature 98.0 F Pulse Rate 67 Pulse Rate [ Anterior Bilateral Throughout] Pulse Rate [ Throughout] Respiratory 18 Rate Respiratory Rate [Anterior Bilateral Throughout] Respiratory Rate [ Throughout] Blood Pressure 115/73 O2 Sat by Pulse 95 96 98 Oximetry 07/09/18 10:39 Temperature Pulse Rate Pulse Rate [ 55 L Anterior Bilateral Throughout] Pulse Rate [ 63 Throughout] Respiratory Rate Respiratory 18 Rate [Anterior Bilateral Throughout] Respiratory 18 Rate [ Throughout] Blood Pressure O2 Sat by Pulse Oximetry Constitutional: no acute distress, alert, other (middle aged CF, normocephalic and atraumatic with mildly increased resp effort at rest) Eyes: non-icteric ENT: oropharynx moist Neck: supple, no lymphadenopathy, no JVD Effort: mildly labored Ascultation: Bilateral: diminished breath sounds, rhonchi Percussion: Bilateral: not dull Cardiovascular: other (Irregular, S1,S2) Gastrointestinal: normoactive bowel sounds, soft, non-tender, non-distended Integumentary: normal Extremities: no cyanosis, no edema, pink and warm, pulses normal Neurologic: normal mental status, non-focal exam, pupils equal and round, motor strength normal and Psychiatric: mood appropriate, anxious CBC and BMP: 07/06/18 04:15 07/06/18 04:15 ABG, PT/INR, D-dimer: ABG POC ABG pH 7.394 (7.35-7.45) 07/05/18 14:36 POC ABG pCO2 58.7 (35-45) H 07/05/18 14:36 POC ABG pO2 92 (80-105) 07/05/18 14:36 POC ABG HCO3 35.8 07/05/18 14:36 POC ABG Total CO2 38 07/05/18 14:36 POC ABG O2 Sat 97 07/05/18 14:36 PT/INR, D-dimer PT 14.5 Sec. (12.2-14.9) 07/04/18 12:38 INR 1.09 (0.87-1.13) 07/04/18 12:38 D-Dimer 742.18 ng/mlDDU (0-234) H 07/05/18 12:45 Abnormal lab findings: Abnormal Labs 07/04/18 07/04/18 07/04/18 12:38 12:38 13:13 WBC 15.4 H Hgb 14.9 H Hct 44.2 H MCV 103 H MCH 35 H RDW 15.6 H Plt Count Lymph % (Auto) [place] % (Auto) 8.5 H Lymph # [place] # 1.3 H Seg Neutrophils % 75.1 H Seg Neutrophils # 11.5 H D-Dimer POC ABG pCO2 POC ABG pO2 Chloride 95.3 L Carbon Dioxide BUN Creatinine Glucose 187 H POC Glucose Lactic Acid 3.10 H* Calcium C-Reactive Protein NT-Pro-B Natriuret Pep 1969 H 07/04/18 07/05/18 07/05/18 14:11 05:43 12:45 WBC Hgb Hct MCV 102 H MCH 35 H RDW 15.4 H Plt Count 85 L Lymph % (Auto) 9.1 L [place] % (Auto) Lymph # 0.9 L [place] # Seg Neutrophils % 83.5 H Seg Neutrophils # 8.5 H D-Dimer POC ABG pCO2 61.5 H 46.5 H POC ABG pO2 479 H Chloride Carbon Dioxide BUN Creatinine Glucose POC Glucose Lactic Acid Calcium C-Reactive Protein NT-Pro-B Natriuret Pep 07/05/18 07/05/18 07/05/18 12:45 12:45 14:36 WBC Hgb Hct MCV MCH RDW Plt Count Lymph % (Auto) [place] % (Auto) Lymph # [place] # Seg Neutrophils % Seg Neutrophils # D-Dimer 742.18 H POC ABG pCO2 58.7 H POC ABG pO2 Chloride Carbon Dioxide 33 H D BUN 24 H Creatinine Glucose 145 H POC Glucose Lactic Acid Calcium 7.8 L C-Reactive Protein 15.00 H NT-Pro-B Natriuret Pep 07/06/18 07/06/18 07/06/18 04:15 04:15 21:24 WBC Hgb Hct MCV 104 H MCH 35 H RDW 15.3 H Plt Count 139 L Lymph % (Auto) [place] % (Auto) Lymph # [place] # Seg Neutrophils % Seg Neutrophils # D-Dimer POC ABG pCO2 POC ABG pO2 Chloride Carbon Dioxide 35 H BUN Creatinine 0.5 L Glucose 139 H POC Glucose 157 H Lactic Acid Calcium 8.2 L C-Reactive Protein NT-Pro-B Natriuret Pep 07/07/18 07/07/18 07/07/18 11:48 16:19 21:07 WBC Hgb Hct MCV MCH RDW Plt Count Lymph % (Auto) [place] % (Auto) Lymph # [place] # Seg Neutrophils % Seg Neutrophils # D-Dimer POC ABG pCO2 POC ABG pO2 Chloride Carbon Dioxide BUN Creatinine Glucose POC Glucose 161 H 132 H 107 H Lactic Acid Calcium C-Reactive Protein NT-Pro-B Natriuret Pep 07/08/18 07/08/18 17:12 21:05 WBC Hgb Hct MCV MCH RDW Plt Count Lymph % (Auto) [place] % (Auto) Lymph # [place] # Seg Neutrophils % Seg Neutrophils # D-Dimer POC ABG pCO2 POC ABG pO2 Chloride Carbon Dioxide BUN Creatinine Glucose POC Glucose 106 H 135 H Lactic Acid Calcium C-Reactive Protein NT-Pro-B Natriuret Pep Additional Studies: Doppler studies of legs reported non Occulusive DVT in right leg above the Knee. Allied health notes reviewed: nursing
--- NOTE | 2018-07-09 14:00 | Vascular Lab Report ---
FINAL REPORT EXAM: VL VENOUS DUPLEX LE BILAT HISTORY: leg swelling; hypoxemia , history of atrial fibrillation and prostate cancer, previous trau ma with fall, right leg arterial stent in place, leg pain TECHNIQUE: Ultrasound examination of the right lower extremity venous system Ultrasound examination of the left lower extremity venous system PRIORS: None. FINDINGS: Right leg: Abnormal lack of compressibility is noted in the right external iliac vein, common femoral vein, prox imal superficial femoral vein, and deep femoral vein. These areas demonstrate reduced flow and abnorm al intraluminal echoes. Findings may reflect nonocclusive DVT. Remaining dependant superficial veins are diffusely patent. Left leg: Normal compressibility, vascular patency, and augmentation are present diffusely throughout the visua lized portion of the deep veins of the left leg. No abnormal intraluminal echoes are visualized to s uggest thrombus. IMPRESSION: Findings suggest nonocclusive DVT in right leg above the knee No sonographic evidence of DVT in the left leg 07/09/2018 at 1:56 p.m. EST: I discussed the findings over the phone with Dr. Burnett
[2018-07-09 17:21] VITALS: BP 128/87
--- NOTE | 2018-07-09 18:14 | Progress Note ---
Assessment and Plan Assessment and plan: 57 YO Female with COPD, Chronic Respiratory Failure on 4L Home Oxygen, DM, Depression, Opiate Dependence, Nicotine Dependence presents to ED for evaluation. Pt was seen and evaluated at a [facility] center and was found to have Acute Hypoxemic Respiratory Failure and was subsequently intubated and placed on vent support . Pt also experienced cardiac arrest and was treated IAW ACLS protocol with return of perfusing rhythm as per [facility] staff. EMS was notified, and upon arrival patient was found to be in distress, but with perfusing cardiac rhythm. Pt transported to [facility] for further care and evaluation. Pt self extubated en route to [facility]. Pt seen and evaluated in ED and subsequently reintubated and placed on vent support. Pt found to have Acute Respiratory Failure, Sepsis, and Acidosis, and New onset CHF. Pt admitted to ICU. Discussed care plan with daughter, who reports that patient is DNR and does not wish to be intubated. Pt daughter requests extubation and comfort care measures. Patient was subsequently extubated and treated with amidarone. she is doing well but wants to be a DNR. She refused hospice discussion. (1) Sepsis IV antibiotic therapy (2) Paroxysmal atrial fibrillation Cardiology input noted. (3)CHF (congestive heart failure) Supportive care, Pt found to have poor prognosis. Pt family request comfort care measures. (4) Acute on chronic respiratory failure with hypercapnia Pulmonary following (5)Type 2 diabetes mellitus - SSI (6) Acidosis IVF resuscitation therapy, monitor uop q shift, serial lactic acid Improved (7) DVT prophylaxis SCD to BLE while in bed. Continue inpatient care. History Interval history: Patient was seen and evaluated in the morning and patient showed some improvement Hospitalist Physical - Physical exam Narrative exam: Not in cardiopulmonary distress. The patient appeared well nourished and normally developed. Vital signs as documented. Head exam is unremarkable. No scleral icterus . Neck is without jugular venous distension, thyromegaly, or carotid bruits. Lungs scattered wheezing. Cardiac exam reveals regular rate and Rhythm. Abdominal exam reveals normal bowel sounds, no masses, no organomegaly and no aortic enlargement. Extremities are nonedematous and both femoral and pedal pulses are normal. COMPOUNDING TECHNICIAN: Alert and oriented 3. No focal weakness. - Constitutional Vitals: Temp Pulse Resp BP Pulse Ox 97.3 F L 90 20 128/87 96 07/09/18 17:23 07/09/18 17:19 07/09/18 17:19 07/09/18 17:19 07/09/18 17:19 General appearance: Present: other (intubated, sedated) Results - Labs CBC & Chem 7: 07/10/18 05:32 07/10/18 05:32 Labs: Laboratory Last Values WBC 10.8 K/mm3 (4.5-11.0) 07/06/18 04:15 RBC 3.82 M/mm3 (3.65-5.03) 07/06/18 04:15 Hgb 13.3 gm/dl (10.1-14.3) 07/06/18 04:15 Hct 39.6 % (30.3-42.9) 07/06/18 04:15 MCV 104 fl (79-97) H 07/06/18 04:15 MCH 35 pg (28-32) H 07/06/18 04:15 MCHC 34 % (30-34) 07/06/18 04:15 RDW 15.3 % (13.2-15.2) H 07/06/18 04:15 Plt Count 139 K/mm3 (140-440) L 07/06/18 04:15 Lymph % (Auto) 9.1 % (13.4-35.0) L 07/05/18 12:45 [place] % (Auto) 7.3 % (0.0-7.3) 07/05/18 12:45 Eos % (Auto) 0.0 % (0.0-4.3) 07/05/18 12:45 Baso % (Auto) 0.1 % (0.0-1.8) 07/05/18 12:45 Lymph # 0.9 K/mm3 (1.2-5.4) L 07/05/18 12:45 [place] # 0.7 K/mm3 (0.0-0.8) 07/05/18 12:45 Eos # 0.0 K/mm3 (0.0-0.4) 07/05/18 12:45 Baso # 0.0 K/mm3 (0.0-0.1) 07/05/18 12:45 Seg Neutrophils % 83.5 % (40.0-70.0) H 07/05/18 12:45 Seg Neutrophils # 8.5 K/mm3 (1.8-7.7) H 07/05/18 12:45 PT 14.5 Sec. (12.2-14.9) 07/04/18 12:38 INR 1.09 (0.87-1.13) 07/04/18 12:38 APTT 29.0 Sec. (24.2-36.6) 07/04/18 12:38 D-Dimer 742.18 ng/mlDDU (0-234) H 07/05/18 12:45 POC ABG pH 7.394 (7.35-7.45) 07/05/18 14:36 POC ABG pCO2 58.7 (35-45) H 07/05/18 14:36 POC ABG pO2 92 (80-105) 07/05/18 14:36 POC ABG HCO3 35.8 07/05/18 14:36 POC ABG Total CO2 38 07/05/18 14:36 POC ABG O2 Sat 97 07/05/18 14:36 POC ABG Base Excess 11 07/05/18 14:36 FiO2 40 % 07/05/18 14:36 Sodium 142 mmol/L (137-145) 07/06/18 04:15 Potassium 4.1 mmol/L (3.6-5.0) 07/06/18 04:15 Chloride 100.9 mmol/L (98-107) 07/06/18 04:15 Carbon Dioxide 35 mmol/L (22-30) H 07/06/18 04:15 Anion Gap 10 mmol/L 07/06/18 04:15 BUN 16 mg/dL (7-17) 07/06/18 04:15 Creatinine 0.5 mg/dL (0.7-1.2) L 07/06/18 04:15 Estimated GFR > 60 ml/min 07/06/18 04:15 BUN/Creatinine Ratio 32 % 07/06/18 04:15 Glucose 139 mg/dL (65-100) H 07/06/18 04:15 POC Glucose 135 (70-105) H 07/08/18 21:05 Lactic Acid 0.90 mmol/L (0.7-2.0) 07/04/18 21:07 Calcium 8.2 mg/dL (8.4-10.2) L 07/06/18 04:15 Troponin T < 0.010 ng/mL (0.00-0.029) 07/04/18 12:38 C-Reactive Protein 15.00 mg/dL (0.00-1.30) H 07/05/18 12:45 NT-Pro-B Natriuret Pep 1969 pg/mL (0-900) H 07/04/18 12:38 Urine Color Yellow (Yellow) 07/04/18 Unknown Urine Turbidity Clear (Clear) 07/04/18 Unknown Urine pH 6.0 (5.0-7.0) 07/04/18 Unknown Ur Specific [place] 1.017 (1.003-1.030) 07/04/18 Unknown Urine Protein 100 mg/dl mg/dL (Negative) 07/04/18 Unknown Urine Glucose (UA) 50 mg/dL (Negative) 07/04/18 Unknown Urine Ketones Tr mg/dL (Negative) 07/04/18 Unknown Urine Blood Mod (Negative) 07/04/18 Unknown Urine Nitrite Neg (Negative) 07/04/18 Unknown Urine Bilirubin Neg (Negative) 07/04/18 Unknown Urine Urobilinogen < 2.0 mg/dL (<2.0) 07/04/18 Unknown Ur Leukocyte Esterase Neg (Negative) 07/04/18 Unknown Urine WBC (Auto) 1.0 /HPF (0.0-6.0) 07/04/18 Unknown Urine RBC (Auto) 21.0 /HPF (0.0-6.0) 07/04/18 Unknown U Epithel Cells (Auto) 1.0 /HPF (0-13.0) 07/04/18 Unknown Urine Mucus Few /HPF 07/04/18 Unknown Nutrition/Malnutrition Assess - Dietary Evaluation Nutrition/Malnutrition Findings: Nutrition Notes Start: 07/05/18 12:32 Freq: Status: Active Protocol: Document 07/08/18 16:12 KENA (Rec: 07/08/18 16:16 [email or web address]) Nutrition Notes Initial or Follow up Reassessment Current Diagnosis COPD Diabetes Sepsis Heart Failure Respiratory Failure Current Diet Cardiac Labs/Tests No current available Pertinent Medications Reviewed Height 5 ft 6 in Weight 84 kg [place] Body Weight (lbs) 130.0 BMI 29.9 Subjective/Other Information Pt tolerating PO meals; says she eats at least 50% of meals . No PO intakes recorded in chart. Burn Absent Trauma Absent #1 Nutrition Diagnosis Inadequate oral intake As Evidenced by Signs and Symptoms pt tolerating PO diet and eating at least 50% of meals Diagnosis Progress(for reassessment Improved documentation) Is patient on ventilator? No Is Patient Ambulatory and/or Out of Bed Yes REE-([facility]-ambulatory/OOB) [ [id number] [id number]] Calculation Used for Recommendations [facility] Additional Notes Pro needs 0.8-1g/k-84g/ day Fluid needs 1ml/kcal Nutrition Intervention Change Diet Order: Continue current diet order Goal #1 PO intakes to meet at least 75 % of energy and pro needs Anticipated Discharge Needs: None identified at this time Follow-Up By: 07/12/18 Additional Comments F/U: intakes, wt
[2018-07-09] MEDS: PEPCID PO SCH (21:25)
[2018-07-10] MEDS: TORADOL IV PRN (04:06)
[2018-07-10] MEDS: SODIUM CHLORIDE FLUSH SYRINGE 10 ML IV SCH ×2 (04:07→10:36)
[2018-07-10 06:34] LABS: Basophils % (Auto) 0.4 % (0.0-1.8); Eosinophils # (Auto) 0.1 K/mm3 (0.0-0.4); Eosinophils % (Auto) 1.5 % (0.0-4.3); Hematocrit 42.8 % (30.3-42.9); Hemoglobin 14.5 gm/dl (10.1-14.3); Lymphocytes # (Auto) 2.2 K/mm3 (1.2-5.4); Lymphocytes % (Auto) 31.9 % (13.4-35.0); Mean Corpuscular HGB Conc 34 % (30-34); Mean Corpuscular Volume 101 fl (79-97); Monocytes # (Auto) 0.4 K/mm3 (0.0-0.8); Monocytes % (Auto) 6.6 % (0.0-7.3); Platelet Count 186 K/mm3 (140-440); Red Blood Count 4.22 M/mm3 (3.65-5.03); Red Cell Distribution Width 14.8 % (13.2-15.2)
[2018-07-10 07:34] LABS: BUN/Creatinine Ratio 19; Blood Urea Nitrogen 15 mg/dL (7-17); Calcium 9.7 mg/dL (8.4-10.2); Hemolysis Index 9
[2018-07-10] MEDS ORDERED: LEVAQUIN PO SCH (10:00)
[2018-07-10] MEDS: CARDIZEM CD PO SCH (10:36)
[2018-07-10] MEDS: PEPCID PO SCH (10:36)
[2018-07-10] MEDS: ELIQUIS PO SCH (10:36)
[2018-07-10] MEDS: BABY ASPIRIN PO SCH (10:36)
[2018-07-10] MEDS: DUONEB *Not for PRN Use IH SCH (11:00)
[2018-07-10] MEDS: PULMICORT IH SCH (11:00)
[2018-07-10] MEDS: BROVANA NEBU IH SCH (11:00)
--- NOTE | 2018-07-10 11:03 | Progress Note ---
Assessment and Plan Patient alert, awake. Patient says breathing better . On 3 litres O2. O2 saturation 96%. Patient still smoking. Counselled to stop smoking. Patient is on Home O2. Venous doppler studies of legs reported non occlusive dvt in right leg above the knee. Perfusion lung scan results pending. - Patient Problems (1) Acute on chronic respiratory failure Current Visit: Yes Status: Acute Plan to address problem: O2 3 litres via nasal canula Brovanna/Budesonide aerosol treatments q 6 hours. Albuterol/atrovent aerosol treatments q 6 hours Prn for shortness of breath. Continue levaquin Patient is on Apixaban. Continue famotidine (2) COPD (chronic obstructive pulmonary disease) Current Visit: Yes Status: Chronic (3) CHF (congestive heart failure) Current Visit: Yes Status: Acute Qualifiers: Heart failure chronicity: acute Plan to address problem: Management as per cardiology. (4) CAD (coronary artery disease) Current Visit: Yes Status: Chronic Plan to address problem: Management as per cardiology. (5) HTN (hypertension) Current Visit: Yes Status: Chronic Plan to address problem: Management as per primary care. (6) Right leg DVT Current Visit: Yes Status: Acute Plan to address problem: Patient is on APIXABAN. Subjective Date of service: 07/10/18 Principal diagnosis: Ac on Chr Hypercapnic Resp Failure; AE-COPD; Cardiac Arrest with ROSC Interval history: Patient alert, awake. Patient says breathing better . On 3 litres O2. O2 saturation 96%. Patient still smoking. Counselled to stop smoking. Patient is on Home O2. Venous doppler studies of legs reported non occlusive dvt in right leg above the knee. Perfusion lung scan results pending. Objective Vital Signs - 12hr 07/10/18 08:55 Pulse Rate 82 Constitutional: no acute distress, alert, other (middle aged CF, normocephalic and atraumatic with mildly increased resp effort at rest) Eyes: non-icteric ENT: oropharynx moist Neck: supple, no lymphadenopathy, no JVD Effort: mildly labored Ascultation: Bilateral: diminished breath sounds, rhonchi Percussion: Bilateral: not dull Cardiovascular: other (Irregular, S1,S2) Gastrointestinal: normoactive bowel sounds, soft, non-tender, non-distended Integumentary: normal Extremities: no cyanosis, no edema, pink and warm, pulses normal Neurologic: normal mental status, non-focal exam, pupils equal and round, motor strength normal and Psychiatric: mood appropriate, anxious CBC and BMP: 07/10/18 05:32 07/10/18 05:32 ABG, PT/INR, D-dimer: ABG POC ABG pH 7.394 (7.35-7.45) 07/05/18 14:36 POC ABG pCO2 58.7 (35-45) H 07/05/18 14:36 POC ABG pO2 92 (80-105) 07/05/18 14:36 POC ABG HCO3 35.8 07/05/18 14:36 POC ABG Total CO2 38 07/05/18 14:36 POC ABG O2 Sat 97 07/05/18 14:36 PT/INR, D-dimer PT 14.5 Sec. (12.2-14.9) 07/04/18 12:38 INR 1.09 (0.87-1.13) 07/04/18 12:38 D-Dimer 742.18 ng/mlDDU (0-234) H 07/05/18 12:45 Abnormal lab findings: Abnormal Labs 07/04/18 07/04/18 07/04/18 12:38 12:38 13:13 WBC 15.4 H Hgb 14.9 H Hct 44.2 H MCV 103 H MCH 35 H RDW 15.6 H Plt Count Lymph % (Auto) [place] % (Auto) 8.5 H Lymph # [place] # 1.3 H Seg Neutrophils % 75.1 H Seg Neutrophils # 11.5 H D-Dimer POC ABG pCO2 POC ABG pO2 Chloride 95.3 L Carbon Dioxide BUN Creatinine Glucose 187 H POC Glucose Lactic Acid 3.10 H* Calcium C-Reactive Protein NT-Pro-B Natriuret Pep 1969 H 07/04/18 07/05/18 07/05/18 14:11 05:43 12:45 WBC Hgb Hct MCV 102 H MCH 35 H RDW 15.4 H Plt Count 85 L Lymph % (Auto) 9.1 L [place] % (Auto) Lymph # 0.9 L [place] # Seg Neutrophils % 83.5 H Seg Neutrophils # 8.5 H D-Dimer POC ABG pCO2 61.5 H 46.5 H POC ABG pO2 479 H Chloride Carbon Dioxide BUN Creatinine Glucose POC Glucose Lactic Acid Calcium C-Reactive Protein NT-Pro-B Natriuret Pep 07/05/18 07/05/18 07/05/18 12:45 12:45 14:36 WBC Hgb Hct MCV MCH RDW Plt Count Lymph % (Auto) [place] % (Auto) Lymph # [place] # Seg Neutrophils % Seg Neutrophils # D-Dimer 742.18 H POC ABG pCO2 58.7 H POC ABG pO2 Chloride Carbon Dioxide 33 H D BUN 24 H Creatinine Glucose 145 H POC Glucose Lactic Acid Calcium 7.8 L C-Reactive Protein 15.00 H NT-Pro-B Natriuret Pep 07/06/18 07/06/18 07/06/18 04:15 04:15 21:24 WBC Hgb Hct MCV 104 H MCH 35 H RDW 15.3 H Plt Count 139 L Lymph % (Auto) [place] % (Auto) Lymph # [place] # Seg Neutrophils % Seg Neutrophils # D-Dimer POC ABG pCO2 POC ABG pO2 Chloride Carbon Dioxide 35 H BUN Creatinine 0.5 L Glucose 139 H POC Glucose 157 H Lactic Acid Calcium 8.2 L C-Reactive Protein NT-Pro-B Natriuret Pep 07/07/18 07/07/18 07/07/18 11:48 16:19 21:07 WBC Hgb Hct MCV MCH RDW Plt Count Lymph % (Auto) [place] % (Auto) Lymph # [place] # Seg Neutrophils % Seg Neutrophils # D-Dimer POC ABG pCO2 POC ABG pO2 Chloride Carbon Dioxide BUN Creatinine Glucose POC Glucose 161 H 132 H 107 H Lactic Acid Calcium C-Reactive Protein NT-Pro-B Natriuret Pep 07/08/18 07/08/18 07/10/18 17:12 21:05 05:32 WBC Hgb 14.5 H Hct MCV 101 H MCH 34 H RDW Plt Count Lymph % (Auto) [place] % (Auto) Lymph # [place] # Seg Neutrophils % Seg Neutrophils # D-Dimer POC ABG pCO2 POC ABG pO2 Chloride Carbon Dioxide BUN Creatinine Glucose POC Glucose 106 H 135 H Lactic Acid Calcium C-Reactive Protein NT-Pro-B Natriuret Pep 07/10/18 05:32 WBC Hgb Hct MCV MCH RDW Plt Count Lymph % (Auto) [place] % (Auto) Lymph # [place] # Seg Neutrophils % Seg Neutrophils # D-Dimer POC ABG pCO2 POC ABG pO2 Chloride 97.2 L Carbon Dioxide 35 H BUN Creatinine Glucose 171 H POC Glucose Lactic Acid Calcium C-Reactive Protein NT-Pro-B Natriuret Pep Allied health notes reviewed: nursing
--- NOTE | 2018-07-10 11:07 | XRay Report ---
PORTABLE CHEST INDICATION: Elevated d-dimer. Shortness of breath. COMPARISON: 07/06/2018 FINDINGS: Portable, frontal chest radiograph again demonstrates normal cardiomediastinal silhouette. No CHF. Left lung base and right hilar surgical clips again noted. Subtle hazy obscuration of the left lateral costophrenic angle nonspecific for pleural thickening versus minimal fluid. EKG leads. Intact bones. CONCLUSION: No definite acute significant chest process with left lung radiographic appearance, as described in this patient with slight linear scar versus atelectasis at the left lung base also reported on 07/17/[address] Follow up on subsequent exams as well. Thank you for the opportunity to participate in this patient's care.
--- NOTE | 2018-07-10 11:20 | Progress Note ---
Assessment and Plan Advanced COPD/Acute on chronic hypoxemic respiratory failure/home oxygen Cardiac Arrest Atrial fibrillation/PAF Continue cardizem CD Continue oral anticoagulation Pt in SR with bouts of AFlutter RVR with activity although she was noted to have less bouts of RVR overnight. Atrial flutter ablation may be the most definitive treatment. 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 Echo reviewed - EF 50-55%, impaired relaxation. CAD/stent Depression/Opiate Dependence DNR/DNI Pt may discharge home from cardiology standpoint on current cardiac regimen. Recommend pt follow up with primary cardiology team at [place] within 1-2 weeks of hospital discharge. Pt reports she has follow-up appt scheduled for next week. The patient has been seen in conjunction with Dr. Lara who agrees with the assessment and plan of care. - Patient Problems (1) Acute on chronic respiratory failure Current Visit: Yes Status: Acute (2) COPD (chronic obstructive pulmonary disease) Current Visit: Yes Status: Chronic (3) Paroxysmal atrial fibrillation Current Visit: Yes Status: Chronic (4) Sepsis Current Visit: Yes Status: Suspected Qualifiers: Sepsis type: sepsis due to unspecified organism Qualified Code(s): A41.9 - Sepsis, unspecified organism (5) CAD (coronary artery disease) Current Visit: Yes Status: Chronic (6) Stented coronary artery Current Visit: Yes Status: Chronic (7) HTN (hypertension) Current Visit: Yes Status: Chronic (8) Type 2 diabetes mellitus Current Visit: Yes Status: Chronic Qualifiers: 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 in SR on telemetry with bouts of AFib with activity overnight. Objective Last Vital Signs Temp 97.3 F L 07/09/18 17:23 Pulse 82 07/10/18 08:55 Resp 18 07/09/18 21:45 BP 128/87 07/09/18 17:19 Pulse Ox 96 07/09/18 21:45 - Physical Examination General: No Apparent Distress HEENT: Positive: PERRL Neck: Positive: neck supple, trachea midline Cardiac: Positive: Reg Rate and Rhythm, S1/S2 Lungs: Positive: Decreased Breath Sounds Neuro: Positive: Other (intubated, sedated ) Abdomen: Positive: Unremarkable. Negative: Tender Extremities: Absent: edema - Labs and Meds CBC 07/10/18 Range/Units 05:32 WBC 6.7 (4.5-11.0) K/mm3 RBC 4.22 (3.65-5.03) M/mm3 Hgb 14.5 H (10.1-14.3) gm/dl Hct 42.8 (30.3-42.9) % Plt Count 186 (140-440) K/mm3 Lymph # 2.2 (1.2-5.4) K/mm3 [place] # 0.4 (0.0-0.8) K/mm3 Eos # 0.1 (0.0-0.4) K/mm3 Baso # 0.0 (0.0-0.1) K/mm3 Comprehensive Metabolic Panel 07/10/18 Range/Units 05:32 Sodium 144 (137-145) mmol/L Potassium 3.7 (3.6-5.0) mmol/L Chloride 97.2 L (98-107) mmol/L Carbon Dioxide 35 H (22-30) mmol/L BUN 15 (7-17) mg/dL Creatinine 0.8 D (0.7-1.2) mg/dL Glucose 171 H (65-100) mg/dL Calcium 9.7 D (8.4-10.2) mg/dL - Imaging and Cardiology EKG: report reviewed, image reviewed Echo: report reviewed (06/2018: EF 50-55%, impaired relaxation. 06/2017 showed EF 55-60%, mod pulm HTN with RVSP 51mmHg. ) - Telemetry EKG Rhythm: Sinus Rhythm - EKG Sinus rhythms and dysrhythmias: sinus rhythm - Allied health notes Allied health notes reviewed: nursing
--- NOTE | 2018-07-10 11:24 | Nuclear Medicine Report ---
VENTILATION PERFUSION SCAN INDICATION: Shortness of breath, elevated d-dimer. COMPARISON: None similar. FINDINGS: VQ scan performed in anterior, posterior, lateral and oblique projections. 5 mCi of technetium 99m MAA was used for the perfusion assessment while 15 millicuries of Xenon 133 was utilized for the ventilation portion of the study. Ventilation images demonstrate heterogeneous radiotracer distribution throughout both lungs. Air-trapping also noted throughout, greatest at the right lung base medially. The perfusion is also heterogeneous, though matching the ventilation without large lobar or definite segmental defects. Accompanying chest radiograph from 9:51 AM demonstrates grossly clear lungs except for slight haziness/blunting of the left lateral costophrenic angle. CONCLUSION: Low probability exam for pulmonary embolism. Thank you for the opportunity to participate in this patient's care.
--- NOTE | 2018-07-10 11:39 | Discharge Summary ---
Providers - Providers Date of Admission: 07/04/18 14:52 Attending physician: STEVE BONNER MD 07/04/18 15:43 Consult to Physician [CONS] Stat Comment: Leroy @ notified @ 15:56- LXM Consulting Provider: SHAUN GARCIA Physician Instructions: Reason For Exam: resp failure 07/05/18 04:10 Consult to Dietitian/Nutrition [CONS] Routine Physician Instructions: Reason For Exam: Reason for Consult: Evaluate nutritional intake 07/05/18 07:30 Consult to Physician [CONS] Routine Comment: Consulting Provider: CIERA SUTTON Physician Instructions: Reason For Exam: AFIB 07/05/18 12:12 Consult to PICC Line RN [CONS] Routine Reason For Exam: critical status with poor vein access. Type Line:: Midline 07/07/18 11:38 Physical Therapy Evaluation and Treat [CONS] Routine Comment: Reason For Exam: debility with ataxia Primary care physician: RN GERIATRIC Hospitalization Reason for admission: S/P cardiac arrest, paroxysmal a.fib, RLE DVT Condition: Stable Pertinent studies: Echo EF of 50-55% with diastolic dysfunction Doppler ultrasound right lower extremity DVT above the knee VQ scan no problems for PE Hospital course: 57 YO Female with COPD, Chronic Respiratory Failure on 4L Home Oxygen, DM, Depression, Opiate Dependence, Nicotine Dependence presents to ED for evalu ation. Pt was seen and evaluated at a [facility] center and was found to have Acute Hypoxemic Respiratory Failure and was subsequently intubated and placed on vent support . Pt also experienced cardiac arrest and was treated IAW ACLS protocol with return of perfusing rhythm as per [facility] staff. EMS was notified, and upon arrival patient was found to be in distress, but with perfusing cardiac rhythm. Pt transported to [facility] for further care and evaluation. Pt self extubated en route to [facility]. Pt seen and evaluated in ED and subsequently reintubated and placed on vent support. Pt found to have Acute Respiratory Failure, Sepsis, and Acidosis, and New onset CHF. Pt admitted to ICU. Discussed care plan with daughter, who reports that patient is DNR and does not wish to be intubated. Pt daughter requests extubation and comfort care measures. Patient was subsequently extubated and treated with amidarone. she is doing well but wants to be a DNR. She refused hospice discussion. Patient was extubated and transferred to the floor, patient was doing well and she change her mind to be full code. Patient was treated with IV antibiotics, nebs, Solu-Medrol. Was also treated for paroxysmal A. fib with amiodarone and eliquis. Patient has also right lower extremity non-occlusive DVT. Patient was hemodynamically stable and discharged home with home health. Disposition: [id number] HOME UNDER HOME [facility] Time spent for discharge: 32 minutes - Discharge Diagnoses (1) Cardiac arrest Status: Acute (2) Acute on chronic respiratory failure Status: Acute (3) CHF (congestive heart failure) Status: Acute Qualifiers: Heart failure chronicity: acute (4) Respiratory failure Status: Acute Qualifiers: (5) Right leg DVT Status: Acute (6) CAD (coronary artery disease) Status: Chronic (7) COPD (chronic obstructive pulmonary disease) Status: Chronic (8) HTN (hypertension) Status: Chronic (9) Paroxysmal atrial fibrillation Status: Chronic (10) Type 2 diabetes mellitus Status: Chronic Qualifiers: Diabetes mellitus oysterman insulin use: without oysterman use Diabetes mellitus complication status: without complication Qualified Code(s): E11.9 - Type 2 diabetes mellitus without complications Core Measure Documentation - Palliative Care Palliative Care/ Comfort Measures: Not Applicable - Core Measures Any of the following diagnoses?: DVT/PE - VTE Discharge Requirements Deep Vein Thrombosis/Pulmonary Embolism Present on Admission: Yes Has pt received <5 days of overlap therapy or INR<2.0: Yes Anticoagulant overlap therapy prescribed at discharge: No Contraindication No Overlap Therapy order at DC: Not Indicated Exam - Physical Exam Narrative exam: Not in cardiopulmonary distress. The patient appeared well nourished and normally developed. Vital signs as documented. Head exam is unremarkable. No scleral icterus . Neck is without jugular venous distension, thyromegaly, or carotid bruits. Lungs scattered wheezing. Cardiac exam reveals regular rate and Rhythm. Abdominal exam reveals normal bowel sounds, no masses, no organomegaly and no aortic enlargement. Extremities are nonedematous and both femoral and pedal pulses are normal. BURSAR: Alert and oriented 3. No focal weakness. - Constitutional Vitals: Temp Pulse Resp BP Pulse Ox 97.3 F L 82 18 128/87 96 07/09/18 17:23 07/10/18 08:55 07/09/18 21:45 07/09/18 17:19 07/09/18 21:45 Plan Activity: no restrictions Weight Bearing Status: Full Weight Bearing Diet: low cholesterol, low salt, diabetic Special Instructions: home oxygen via Follow up with: PRIMARY CARE,MD [Primary Care Provider] - 3-5 Days Prescriptions: Apixaban [Eliquis] 5 mg PO BID #60 tab.ds.pk Budesonide [Pulmicort Respules] 0.5 mg IH Q12HRT #60 nebu levoFLOXacin [Levaquin TAB] 500 mg PO QDAY #5 tablet Prednisone [predniSONE 10 mg (6-Day Pack, 21 Tabs)] 10 mg PO .TAPER #1 tab.ds.pk
== END 2018-07-10 13:35 | disposition home health service (06) | DRG 871 ==
LOC: ED 12:09 → CC1 14:52 → IMCU 07-06 10:33 → CC1 07-06 10:33 → IMCU 07-06 21:04 → 4A 07-08 21:01
PROVIDERS: ADMIT Internal Medicine; ATTEND Internal Medicine
PROC: 5A1945Z Respiratory Ventilation, 24-96 Consecutive Hours (ICD-10-PCS; principal; 2018-07-04)
PROC: 0BH17EZ Insertion of Endotracheal Airway into Trachea, Via Natural or Artificial Opening (ICD-10-PCS; 2018-07-04)
PROC: 06HM33Z Insertion of Infusion Device into Right Femoral Vein, Percutaneous Approach (ICD-10-PCS; 2018-07-04)
PROC: 4A033R1 Measurement of Arterial Saturation, Peripheral, Percutaneous Approach (ICD-10-PCS; 2018-07-04)
PROC: 05HY33Z Insertion of Infusion Device into Upper Vein, Percutaneous Approach (ICD-10-PCS; 2018-07-05)
DX: A41.9 Sepsis, unspecified organism (principal); J96.22 Acute and chronic respiratory failure with hypercapnia; J96.21 Acute and chronic respiratory failure with hypoxia; I46.9 Cardiac arrest, cause unspecified; J44.9 Chronic obstructive pulmonary disease, unspecified; E11.9 Type 2 diabetes mellitus without complications; E87.2 Acidosis; I48.92 Unspecified atrial flutter; F32.9 Major depressive disorder, single episode, unspecified; I48.0 Paroxysmal atrial fibrillation; I25.10 Atherosclerotic heart disease of native coronary artery without angina pectoris; K21.9 Gastro-esophageal reflux disease without esophagitis; I82.491 Acute embolism and thrombosis of other specified deep vein of right lower extremity; J44.1 Chronic obstructive pulmonary disease with (acute) exacerbation; G89.4 Chronic pain syndrome; Z66 Do not resuscitate; F17.210 Nicotine dependence, cigarettes, uncomplicated; E78.5 Hyperlipidemia, unspecified; E66.9 Obesity, unspecified; F11.20 Opioid dependence, uncomplicated; Z91.041 Radiographic dye allergy status; Z99.81 Dependence on supplemental oxygen; Z79.82 Long term (current) use of aspirin; Z79.84 Long term (current) use of oral hypoglycemic drugs; Z90.710 Acquired absence of both cervix and uterus; Z90.10 Acquired absence of unspecified breast and nipple; Z68.29 Body mass index [BMI] 29.0-29.9, adult; Z85.3 Personal history of malignant neoplasm of breast; Z71.6 Tobacco abuse counseling; Z95.5 Presence of coronary angioplasty implant and graft
CPT/HCPCS: 36415; 36600; 71045; 78582; 80048; 81001; 82140; 82803; 82962; 83880; 84484; 85025; 85027; 85379; 85610; 85730; 86140; 87040; 87070; 87205; 93005; 93010; 93306; 93970; 94002; 94003; 94640; 94760; 96365; 96375; 99406; G0378; A9540; A9558; J0282; J0330; J1650; J1885; J1956; J2704; J7030; J7060